=== PATIENT | female | born 1940 | race Caucasian/White ===

== ENCOUNTER 2017-10-17 19:10 | Observation (INO) | payer MEDICARE, OTHER, SELFPAY ==
--- NOTE | 2017-10-17 12:13 | EKG12_ITS ---
Test Reason : Blood Pressure : / mmHG Vent. Rate : 106 BPM Atrial Rate : 106 BPM P-R Int : 160 ms QRS Dur : 072 ms QT Int : 336 ms P-R-T Axes : 045 -04 011 degrees QTc Int : 446 ms Sinus tachycardia Nonspecific ST abnormality Abnormal ECG Confirmed by LUCA IVORY MD ([id number]), marketing editor MCKINLEY MCGOWAN ([id number]) on 10/25/2017 6:19:00 PM Referred By: LILIANA Confirmed By:LUCA IVORY MD
--- NOTE | 2017-10-17 19:35 | RAD_ITS ---
STUDY: X-RAY CHEST REASON FOR EXAM: Female, 76 years old. Acute chest pain TECHNIQUE: Single AP portable view of the chest. COMPARISON: 2013 FINDINGS: EKG leads overlie the chest. Stable elevation of the right hemidiaphragm The lungs are clear and expanded. There is no demonstrated pleural abnormality. Normal size heart. Normal mediastinum and summer. Normal visualized pulmonary arteries. Normal visualized aortic arch and descending thoracic aorta. There are diffuse degenerative changes of the visualized thoracic spine. Normal visualized ribs, clavicles, and shoulders. There is no demonstrated abnormality of the visualized soft tissue structures of the upper abdomen. RAD/Chest 1 View (Portable) IMPRESSION: No acute pulmonary process Electronically Signed: Ludwig Ochoa MD at 14:13 EDT , Service support ,
--- NOTE | 2017-10-17 23:50 | DT_ITS ---
This patient was seen during an EMR downtime October 16, 2017 - October 23, 2017. This patient may have a combination of paper and electronic documentation or all paper documentation. All documentation is viewable within the e-chart portion of [employer] for each patient visit.
--- NOTE | 2017-10-18 12:13 | EKG12_ITS ---
Test Reason : CP ADMIT Blood Pressure : / mmHG Vent. Rate : 084 BPM Atrial Rate : 084 BPM P-R Int : 172 ms QRS Dur : 078 ms QT Int : 376 ms P-R-T Axes : 061 008 029 degrees QTc Int : 444 ms Normal sinus rhythm Normal ECG Confirmed by AMAN GUTIERREZ, MICHAEL ([id number]), technical writer and editor MCKINLEY MCGOWAN ([id number]) on 10/27/2017 1:58:48 PM Referred By: DR SAUCEDO Confirmed By:MICHAEL NEWTON MD
--- NOTE | 2017-10-18 15:06 | STEWCON_ITS ---
Reason For Study: CHEST PAIN Stress Results Protocol: Dobutamine Protocol Maximum Predicted HR: 144 bpm Target HR: 122 bpm% Maximum Predicted HR: 88 % DurationHeart Rate Stage (mm:ss) (bpm) BPDos e Comment BASELINE 82 132/65 2 CC DEFINITY STAGE 1 4:00 10 4 142/7710.002CC DEFINITY STAGE 2 2:10 12 6 155/6520.00 RECOVERY 99 138/69 1CC DEFINITY Stress Duration: 6:10 mm:ss Maximum Stress HR: 126 bpm Baseline Echocardiogram Findings Stress Echo Wall motion Data Resting WMIntermediate WMStress WM Resting Wall Motion Wall Motion Stress No regional wall motion No regional wall motion abnormalities noted. abnormalities noted. Stress Results TERMINATED DUE TO ATTAINED HEART RATE. EKG Data The baseline ECG displays normal sinus rhythm. NORMAL SINUS ST WAVE CHANGES. Interpretation Summary 1) ADEQUATE DOBUTAMINE STRESS ECHO 2) FINAL LVEF=75% 3) DECREASED SENSITIVITY DUE TO POOR ECHO WINDOW REQUIRING DEFINITY AGENT Doppler Measurements & Calculations TR max asia: 192.2 cm/sec TR max P.8 mmHg Ordering Physician: Chloe Townsend Performed By: Marie Wilcox RDCS
[2017-10-19 21:17] LABS: AST(SGOT) 14 U/L (15-37); Alanine Aminotransfer ALT/SGPT 14 U/L (13-56); Albumin, Serum 3.6 g/dL (3.2-5.0); Alkaline Phosphatase 95 U/L (45-117); Bilirubin, Direct 0.07 mg/dL (0.00-0.30); Globulin 3.6 g/dL (2.2-4.2); Lipase 77 U/L (73-393); Protein, Total 7.2 g/dL (6.4-8.2)
[2017-10-20 09:46] LABS: Basophil% 0.6 % (0-1); Eosinophils% 1.9 % (0-5); Hematocrit 38.9 % (37-47); Hemoglobin 13.2 g/dl (12.0-15.0); Mean Corp Hgb Conc 33.9 g/gl (32-36); Mean Corpuscular Hgb 30.8 pg (27.0-32.0); Mean Corpuscular Volume 90.9 fL (81-99); Mean Platelet Vol. 9.1 fl (6.2-12.0); Monocyte% 8.3 % (0-10); Neutrophil # 6.05 X10^3/uL (2.7-7.7); Neutrophil % 68.9 % (47-70); POSITIVE COUNT NO; POSITIVE DIFFERENTIAL NO; POSITIVE MORPHOLOGY NO; Platelet Count 371 K/mm3 (150-450); RBC Distribution Width CV 13.1 % (11.6-14.6); RBC Distribution Width SD 42.3 fl (35.1-43.9); Red Blood Count 4.28 M/mm3 (4.2-5.4); White Blood Count 8.8 K/mm3 (4.4-11.0)
[2017-10-20 09:47] LABS: Absolute Lymphocyte Count 1.76 X10^3/ul (0.83-4.51); Absolute Neutrophil Count 6.1 X10^3/uL (2.0-7.7); Basophil# 0.05 X10^3/uL; Eosinophil# 0.17 X10^3/uL; Lymphocyte # 1.76 X10^3/ul (4.0); Monocyte# 0.73 X10^3/uL
[2017-10-20 09:48] LABS: Partial Thromboplast Time 28.2 Seconds (24.1-36.2); Prothrombin Time (Protime)PT. 13.1 SECONDS (11.7-14.9)
[2017-10-21 07:25] LABS: T4 Total, Thyroxin 8.5 ug/dL (4.8-13.9); Thyroid Stim Hormone (TSH) 3.31 uIU/mL (0.358-3.74)
[2017-10-21 08:31] LABS: Hemoglobin 12.4 g/dl (12.0-15.0); Red Blood Count 3.87 M/mm3 (4.2-5.4); White Blood Count 7.5 K/mm3 (4.4-11.0)
[2017-10-21 08:32] LABS: Absolute Lymphocyte Count 1.85 X10^3/ul (0.83-4.51); Absolute Neutrophil Count 4.9 X10^3/uL (2.0-7.7); Basophil# 0.05 X10^3/uL; Basophil% 0.7 % (0-1); Eosinophil# 0.16 X10^3/uL; Eosinophils% 2.1 % (0-5); Hematocrit 35.2 % (37-47); Lymphocyte # 1.85 X10^3/ul (4.0); Lymphocyte % 24.6 % (19-41); Mean Corp Hgb Conc 35.2 g/gl (32-36); Mean Platelet Vol. 9.1 fl (6.2-12.0); Monocyte# 0.54 X10^3/uL; Monocyte% 7.2 % (0-10); Neutrophil # 4.91 X10^3/uL (2.7-7.7); Neutrophil % 65.1 % (47-70); POSITIVE COUNT NO; POSITIVE DIFFERENTIAL NO; POSITIVE MORPHOLOGY NO; Platelet Count 322 K/mm3 (150-450); RBC Distribution Width CV 13.4 % (11.6-14.6); RBC Distribution Width SD 43.2 fl (35.1-43.9)
[2017-10-21 08:33] LABS: Partial Thromboplast Time 29.5 Seconds (24.1-36.2); Prothrombin Time (Protime)PT. 13.6 SECONDS (11.7-14.9)
[2017-10-21 09:36] LABS: Anion Gap 8 (5-15); BUN 5 mg/dL (7-18); BUN/Creat Ratio 10.9 RATIO (10-20); Chloride 115 mmol/L (98-107); Cholesterol 150 mg/dL (200); Creatinine, Serum 0.46 mg/dL (0.55-1.02); EST Glomerular Filtration Rate 140 mL/min (>60); Est Glom Filt Rate - Afr Amer 170 mL/min (>60); Glucose 100 mg/dL (74-106); High Density Lipoprotein 55 mg/dL; Potassium 4.1 mmol/L (3.5-5.1); Sodium Level 147 mmol/L (136-145); Triglycerides 72 mg/dL; Very Low Density Lipoprotein 14 mg/dL (5-40)
== END 2017-10-18 14:00 | disposition home or self-care (01) ==
LOC: ED 10-18 16:30 → PCU 10-18 16:32
PROVIDERS: Admitting Provider Family Medicine; Family Provider Family Medicine; PCP Family Medicine; Visit Provider Family Medicine
DX: R07.89 Other chest pain (principal); I10 Essential (primary) hypertension; K21.9 Gastro-esophageal reflux disease without esophagitis; R00.0 Tachycardia, unspecified; R06.02 Shortness of breath; Z79.899 Other long term (current) drug therapy
CPT/HCPCS: 36415; 71045; 80048; 80061; 80076; 83690; 83735; 84436; 84443; 84484; 85025; 85379; 85610; 85730; 93005; 93017; 93350; 96360; 96361; 99218; 99285; J7030; Q9957; A4216; C8928; G0378

== ENCOUNTER 2018-12-17 13:58 | Emergency (ER) | payer MEDICARE, OTHER, SELFPAY ==
--- NOTE | 2018-12-17 14:00 | EKG12_ITS ---
Test Reason : PALPITATIONS Blood Pressure : / mmHG Vent. Rate : 098 BPM Atrial Rate : 098 BPM P-R Int : 144 ms QRS Dur : 074 ms QT Int : 354 ms P-R-T Axes : 040 001 032 degrees QTc Int : 451 ms Normal sinus rhythm Normal ECG Confirmed by AMAN GUTIERREZ, MICHAEL ([id number]), supervising film or videotape editor ALBERTO GRIMM ([id number]) on 12/19/2018 10:12:40 AM Referred By: RU Confirmed By:MICHAEL NEWTON MD
[2018-12-17 14:01] VITALS: BP 157/81; PULSE 118; RESP 18; TEMP 36.8; O2SAT 99; BMI 30.6
[2018-12-17 15:05] LABS: Absolute Lymphocyte Count 1.33 X10^3/uL (0.83-4.51); Absolute Neutrophil Count 6.6 X10^3/uL (2.0-7.7); Basophil# 0.08 X10^3/uL; Basophil% 0.9 % (0-1); Eosinophil# 0.05 X10^3/uL; Eosinophils% 0.6 % (0-5); Hematocrit 41.5 % (37-47); Hemoglobin 13.7 g/dL (12.0-15.0); Lymphocyte # 1.33 X10^3/ul (4.0); Lymphocyte % 15.4 % (19-41); Mean Corpuscular Hgb 29.2 pg (27.0-32.0); Mean Corpuscular Volume 88.5 fL (81-99); Mean Platelet Vol. 9.2 fl (6.2-12.0); Monocyte# 0.54 X10^3/uL; Monocyte% 6.3 % (0-10); NRBC Flagged by Analyzer 0 % (0-5); Neutrophil # 6.57 X10^3/uL (2.7-7.7); Neutrophil % 76.3 % (47-70); Platelet Count 337 K/mm3 (150-450); RBC Distribution Width CV 12.9 % (11.6-14.6); RBC Distribution Width SD 41.6 fl (35.1-43.9); Red Blood Count 4.69 M/mm3 (4.2-5.4); White Blood Count 8.6 K/mm3 (4.4-11.0)
[2018-12-17 15:24] LABS: Anion Gap 7 (5-15); BUN 9 mg/dL (7-18); BUN/Creat Ratio 14.2 RATIO (10-20); Calcium,Total 9.1 mg/dL (8.5-10.1); Chloride 108 mmol/L (98-107); Creatinine, Serum 0.64 mg/dL (0.55-1.02); EST Glomerular Filtration Rate 96 mL/min (>60); Est Glom Filt Rate - Afr Amer 116 mL/min (>60); Estimated Creatinine Clearance 36.67 ml/min; Glucose 94 mg/dL (74-106); Potassium 3.8 mmol/L (3.5-5.1); Sodium Level 143 mmol/L (136-145)
[2018-12-17 15:49] VITALS: BP 150/73; PULSE 83; RESP 19; O2SAT 99
--- NOTE | 2018-12-17 15:55 | ED.DCSUM_ITS ---
History of Present Illness Chief Complaint: Palpitations Informant: Patient Onset: Today Narrative: Patient states she woke around 815 this morning. While lying in bed her right leg felt numb. She felt like her heart was racing and she had some mild shortness of breath. She was able to get up and walk and states that short time later the numbness in her leg went away. Throughout the morning her heart rate seemed to improve. Patient did sit in a chair to watch television and states that her right leg went to sleep while she was sitting there. She rubbed her leg and symptoms resolved. She did have some mild low back pain which she states she gets from time to time. Extremity symptoms are now completely resolved. Patient states her heart rate seems to be improved currently but is not back to baseline. She states she had similar symptoms approximately a year ago and was seen and evaluated with no definitive cause. She did wear a Holter monitor at that time. She denies any recent medication changes. No [id number] stimulants. No change in caffeine intake. Past Medical History - Allergies and Home Meds Allergies/Adverse Reactions: Allergies No Known Allergies Allergy (Verified 12/17/18 14:03) Primary Care Physician: Eleanor Crowley MD [Primary Care Provider] - Prior records reviewed: Yes Past Medical History: - - Reviewed Smoking Status: Never smoker Review of Systems General: Denies: Chills, Fever Eyes: Denies: Visual changes - bilaterally ENT: Denies: Bilateral ear pain Cardiovascular: Reports: Palpitations, Heart racing. Denies: Chest pain Respiratory: Reports: Dyspnea. Denies: Cough, Sputum Gastrointestinal: Denies: Abdominal pain, Nausea, Vomiting, Diarrhea Musculoskeletal: Reports: Back pain Skin: Denies: Rash Neurological: Reports: Parasthesia Endocrine: Denies: Polyuria, Polydipsia Hematologic: Denies: Easy bruising Allergy: Denies: Uticaria Physical Exam Vital Signs/Narrative: Vital Signs Temp Pulse Resp BP Pulse Ox 12/17/18 15:49 83 19 H 150/73 H 99 12/17/18 14:01 98.2 F 118 H 18 157/81 H 99 Inital Vital Signs reviewed: Yes General: Well nourished, Well developed Head: Normocephalic Eyes: Perrl, EOMI ENT: Moist mucous membranes Neck: Supple Cardiovascular: Regular rate, Regular rhythm Respiratory: No distress, CTA bilaterally Abdomen: Soft, Nontender Back: Nontender, Normal Inspection Extremities: Nontender, No edema Skin: Normal color, No rash Neurological: Alert, Oriented x3, Normal Strength, Normal Sensation Psychological: Normal affect Diagnostic/Tx/Re-eval Impressions Chest X-Ray 12/17/18 15:55 IMPRESSION: No active disease. Electronically Signed: Ke Lewis MD at 16:12 EDT Tel , Service support , 12/17/18 15:55 Chest 1 View (Portable) [RAD] Stat Laboratory Results 12/17/18 12/17/18 12/17/18 14:55 14:55 14:55 WBC 8.6 RBC 4.69 Hgb 13.7 Hct 41.5 MCV 88.5 MCH 29.2 MCHC 33.0 RDW Std Deviation 41.6 RDW Coeff of Scot 12.9 Plt Count 337 MPV 9.2 Immature Gran % (Auto) 0.500 Neut % (Auto) 76.3 H Lymph % (Auto) 15.4 L [place] % (Auto) 6.3 Eos % (Auto) 0.6 Baso % (Auto) 0.9 Absolute Neuts (auto) 6.6 Absolute Lymphs (auto) 1.33 Nucleated RBC % 0 Sodium 143 Potassium 3.8 Chloride 108 H Carbon Dioxide 28.0 Anion Gap 7 BUN 9 Creatinine 0.64 Estim Creat Clear Calc 36.67 Est GFR (MDRD) Af Amer 116 Est GFR (MDRD) Non-Af 96 BUN/Creatinine Ratio 14.2 Glucose 94 Calcium 9.1 Troponin I < 0.015 TSH 3.43 - EKG Initial EKG Interpretation: Sinus Rhythm - Sinus at 98 with no acute ischemia. Normal intervals. - Medical Decision Making Patient was observed on monitoring and evaluation advisor with no sign of arrhythmia. Patient states that she had similar symptoms a year ago and had a Holter monitor at that time. I will speak with PCP to help arrange close follow-up. She is encouraged to return if she notes the palpitations and racing heart again to try to catch an episode. ED Disposition - Plan for ED Patient: Disposition: Home or Assisted Living Diagnosis: Palpitations Instructions: Palpitations Referrals: Eleanor Crowley MD [Primary Care Provider] - As soon as possible
--- NOTE | 2018-12-17 15:55 | RAD_ITS ---
STUDY: X-RAY CHEST REASON FOR EXAM: Female, 78 years old. Tachycardia, shortness of breath TECHNIQUE: Single AP portable view of the chest. COMPARISON: 10/17/2017 FINDINGS: The lungs are clear and expanded. Elevated right hemidiaphragm which is unchanged. Normal size heart. Normal mediastinum and summer. Normal visualized pulmonary arteries. Normal visualized aortic arch and descending thoracic aorta. Normal visualized thoracic spine. Normal visualized ribs, clavicles, and shoulders. There is no demonstrated abnormality of the visualized soft tissue structures of the upper abdomen. RAD/Chest 1 View (Portable) IMPRESSION: No active disease. Electronically Signed: Ke Lewis MD at 16:12 EDT Tel , Service support ,
[2018-12-17 16:25] VITALS: BP 150/68; PULSE 85; RESP 22; O2SAT 96
[2018-12-17 16:39] LABS: Thyroid Stim Hormone (TSH) 3.43 uIU/mL (0.358-3.74)
[2018-12-17 17:07] VITALS: BP 134/79; PULSE 81; RESP 20; O2SAT 96
[2018-12-17 17:22] VITALS: BP 123/60; PULSE 83; RESP 14; O2SAT 96
== END 2018-12-17 17:28 | disposition home or self-care (01) ==
PROVIDERS: Emergency Provider Emergency Medicine; Family Provider Family Medicine; PCP Family Medicine
DX: R00.2 Palpitations (principal); R20.2 Paresthesia of skin; M54.5 Low back pain; Z79.82 Long term (current) use of aspirin; Z79.899 Other long term (current) drug therapy
CPT/HCPCS: 71045; 80048; 84443; 84484; 85025; 93005; 99283; A4216

== ENCOUNTER → 2019-02-27 10:40 | Outpatient (CLI) | payer MEDICARE, OTHER, SELFPAY ==
--- NOTE | 2019-02-27 17:49 | STRESSREP ---
Stress Test Report Treadmill EKG report: Resting EKG: Normal sinus rhythm, normal axis, normal intervals, no evidence of previous myocardial infarction. Treadmill EKG: The patient exercised according to a Maxwell protocol for 4 minutes and 30 seconds achieving a maximum workload of 6.40 METS. Her resting heart rate was initially 89 beats a minute and rui to maximum 164 beats a minute which represents 115% of the maximal age picked at heart rate. Resting blood pressure is 136/76, and rui to max in 162/84 during exercise the patient's heart rate increased as expected. Patient developed [address] segment depression in the inferior lateral leads at peak exercise which did not reach criteria for ischemia, and which normalized by 3 minutes 1 second into recovery. No arrhythmias noted. Conclusions: Normal, adequate, treadmill EKG. Negative for ischemia by EKG criteria. No anginal symptoms noted. No arrhythmias noted. Appropriate blood pressure response to exercise. Below average exercise capacity for age. Test was terminated due to dyspnea and the attainment of target heart rate. No imaging performed. No complications.
== END ==
PROVIDERS: Family Provider Family Medicine; PCP Family Medicine; Referring Provider Family Medicine; Visit Provider Family Medicine
DX: R07.89 Other chest pain (principal)
CPT/HCPCS: 93017

== ENCOUNTER 2019-12-16 19:59 | Emergency (ER) | payer MEDICARE, OTHER, SELFPAY ==
[2019-12-16 20:00] VITALS: BP 132/96; PULSE 119; RESP 16; TEMP 36.3; O2SAT 97; BMI 30.7
--- NOTE | 2019-12-16 20:42 | CT_ITS ---
STUDY: CTA CHEST REASON FOR EXAM: Female, 79 years old. SOB, CHEST DISCOMFORT, TINGLING IN LEGS SINCE MONDAY MORNING. RADIATION DOSAGE (If Supplied By Facility): CTDIvol = ( 9.515 ) mGy, DLP = ( 487.80 ) mGycm TECHNIQUE: The examination was performed with the intravenous administration of IV 100mL Isovue-370. Post-processing of the angiographic images was performed, with multiplanar reformation and 3D reconstruction. Individualized dose optimization techniques were used for this CT. COMPARISON: None. FINDINGS: Normal enhancement of the main pulmonary artery and right and left pulmonary arteries. Normal enhancement of the bilateral peripheral pulmonary arteries. There is no demonstrated pulmonary embolism. Normal thoracic aorta and visualized great vessels. There is no demonstrated aortic dissection. Normal heart and pericardium. Normal mediastinum. Normal hilar regions. Normal visualized trachea and bronchi. The lungs are well expanded. No demonstrated consolidation or pulmonary edema. No pleural effusion. Mild interstitial thickening is present in the superior segment of the right lower lobe. No visualized lung nodules. Mild interstitial scarring is also present in the right middle lobe and in the left lower lobe. No emphysematous cysts. Chronic elevation of the right hemidiaphragm with eventration of the liver into the thoracic cavity. Normal pleura. Normal chest wall structures. There are degenerative changes of thoracic spine. Normal visualized upper abdomen. A small benign cyst is present in the dome of the left lobe of the liver unchanged from the November 13 2013 study. Several small cysts are reidentified in the right lobe of the liver also unchanged from the 2013 study. A small hypodense nodule is present in the right lobe of the thyroid gland assessed on this study but can be evaluated with thyroid ultrasound if clinically indicated. CT/CTA Chest W/WO Contrast IMPRESSION: 1. No demonstrated pulmonary embolism or arterial dissection. 2. Mild interstitial thickening in both lungs. 3. No visualized consolidation or pleural effusion. Electronically Signed: Francesco Arzate MD at 22:52 EDT , Service support ,
--- NOTE | 2019-12-16 20:42 | EKG12_ITS ---
Test Reason : CP Blood Pressure : / mmHG Vent. Rate : 113 BPM Atrial Rate : 113 BPM P-R Int : 138 ms QRS Dur : 070 ms QT Int : 322 ms P-R-T Axes : 046 -08 034 degrees QTc Int : 441 ms Sinus tachycardia Nonspecific ST and T wave abnormality Abnormal ECG Confirmed by AMAN GUTIERREZ, MICHAEL ([id number]), story editor CATY TRACEY ([id number]) on 12/18/2019 10:58:51 AM Referred By: MARIAMA/KELI Confirmed By:MICHAEL NEWTON MD
[2019-12-16] MEDS: 0.9% Normal Saline 1,000 ML 150 ML IV (21:00)
[2019-12-16] MEDS: LORazepam 1 MG Tablet PO (21:01)
[2019-12-16 21:02] VITALS: O2SAT 96
[2019-12-16 21:03] VITALS: O2SAT 96
[2019-12-16 21:13] LABS: Absolute Lymphocyte Count 2.21 X10^3/uL (0.83-4.51); Absolute Neutrophil Count 6.1 X10^3/uL (2.0-7.7); Basophil# 0.07 X10^3/uL; Basophil% 0.8 % (0-1); Eosinophil# 0.12 X10^3/uL; Eosinophils% 1.3 % (0-5); Hemoglobin 13.8 g/dL (12.0-15.0); Lymphocyte # 2.21 X10^3/ul (4.0); Mean Corp Hgb Conc 36.3 g/dL (32-36); Mean Corpuscular Hgb 32.9 pg (27.0-32.0); Mean Corpuscular Volume 90.7 fL (81-99); Mean Platelet Vol. 9.3 fl (6.2-12.0); Monocyte# 0.68 X10^3/uL; Monocyte% 7.4 % (0-10); NRBC Flagged by Analyzer 0 % (0-5); Neutrophil % 66.2 % (47-70); Platelet Count 354 K/mm3 (150-450); RBC Distribution Width CV 12.7 % (11.6-14.6); RBC Distribution Width SD 40.6 fl (35.1-43.9); Red Blood Count 4.19 M/mm3 (4.2-5.4); White Blood Count 9.2 K/mm3 (4.4-11.0)
[2019-12-16 21:45] LABS: Lipase 49 U/L (73-393)
[2019-12-16 21:47] LABS: AST(SGOT) 13 U/L (15-37); Alanine Aminotransfer ALT/SGPT 20 U/L (13-56); Albumin, Serum 3.6 g/dL (3.2-5.0); Alkaline Phosphatase 88 U/L (45-117); Bilirubin, Direct 0.13 mg/dL (0.00-0.30); Globulin 3.7 g/dL (2.2-4.2); Protein, Total 7.3 g/dL (6.4-8.2)
[2019-12-16 21:53] LABS: Anion Gap 6 (5-15); BUN 11 mg/dL (7-18); BUN/Creat Ratio 15.9 RATIO (10-20); Calcium,Total 9.1 mg/dL (8.5-10.1); Chloride 108 mmol/L (98-107); Creatinine, Serum 0.69 mg/dL (0.55-1.02); EST Glomerular Filtration Rate 87 mL/min (>60); Est Glom Filt Rate - Afr Amer 105 mL/min (>60); Estimated Creatinine Clearance 36.08 ml/min; Glucose 117 mg/dL (74-106); Sodium Level 141 mmol/L (136-145); Thyroid Stim Hormone (TSH) 8.93 uIU/mL (0.358-3.74)
[2019-12-16 22:00] VITALS: BP 149/79; PULSE 118; RESP 22; O2SAT 97
--- NOTE | 2019-12-16 22:59 | ED.VISSUMM ---
- ER Visit Summary Date of Service: 12/16/19 Chief Complaint: Chest pain History of Present Illness: The patient is a [address] Crowley. She reports that she has chest pain that began 3 days ago. States that intermittent pain that lasts 15 to 20 minutes over the past 3 days, but is been present for the past 4 hours now. She describes it as a heaviness/pressure. Is 7 on 10 at worst and 5-10 currently. Is worsened by nothing including exertion. States that she is been mildly short of breath with this. She denies any associated nausea, vomiting, or diaphoresis. Patient reports that when she gets this my legs shake. Physical Examination: Vitals: Stable. Afebrile. General: Well-nourished and well-developed. Head: Normocephalic atraumatic. Neck: Supple, no lymphadenopathy. No JVD. Nontender. Cardiovascular: Regular rate and rhythm. No murmurs. Respiratory: No respiratory distress. Clear to auscultation bilaterally. Abdominal: Soft, nontender, nondistended, normal bowel sounds. No guarding, rebound, or peritoneal signs. Back: Nontender. Extremities: Nontender, no edema. Skin: Normal color, no rash. Neurologic: Alert and oriented ?3. Cranial nerves II through XII are intact. Normal strength and sensation. Psych: Normal affect. Test Results: EKG sinus tach at [address] changes. Is unchanged from 1 year ago. Troponin is negative despite more than 4 hours of constant pain. LFTs show an AST of 13 lipase is 49. Chem-7 shows a chloride of 108 and glucose 117. CBC is normal. TSH is 8.93. Free T3 and T4 were sent. Clinical Impression(s) from Imaging Studies Chest CTA 12/16/19 20:42 IMPRESSION: 1. No demonstrated pulmonary embolism or arterial dissection. 2. Mild interstitial thickening in both lungs. 3. No visualized consolidation or pleural effusion. Electronically Signed: Francesco Arzate MD at 22:52 EDT , Service support , Emergency Department Course and Treatment: Patient does readily admit to the fact that she feels anxious and has problems with anxiety. States that she does not get sick often and when there is something that does not feel right she gets anxious with this. She was given a dose of Ativan p.o. and is resting much more comfortably. She would like to go home. Chart review shows patient had a stress test in February 2019 that was negative. On believe that there is any indication for a heart catheterization. I think that she is a suitable candidate for further outpatient evaluation. Treatment Plan: Patient be discharged prescription for 10 Ativan. Instructed to follow-up Dr. Crowley soon as possible. Return to the emergency department for any worsening symptoms. Disposition: To home in improved and stable condition. Impression: 1. Atypical chest pain. 2. DAYLIN score of 2. This note was generated with [employer] dictation software. It may contain incorrect words, spelling, and punctuation that were not noted in review of the chart prior to signing ED Disposition - Plan for ED Patient: Disposition: Home or Assisted Living Instructions: ED Chest Pain Atypical Unkn Cause Prescriptions: Lorazepam [Ativan] 1 mg PO TID #10 tab Prescription Printed Referrals: Eleanor Crowley MD [Primary Care Provider] - As soon as possible
[2019-12-16 23:22] VITALS: BP 147/89; PULSE 92; RESP 15; O2SAT 97
[2019-12-17 00:08] LABS: T4 Free Direct 1.07 ng/dL (0.76-1.46)
== END 2019-12-16 23:27 | disposition home or self-care (01) ==
PROVIDERS: Emergency Provider Emergency Medicine; PCP Family Medicine
DX: R07.89 Other chest pain (principal); R06.02 Shortness of breath; R25.1 Tremor, unspecified; K21.9 Gastro-esophageal reflux disease without esophagitis; R32 Unspecified urinary incontinence; Z79.82 Long term (current) use of aspirin; Z79.899 Other long term (current) drug therapy
CPT/HCPCS: 71275; 80048; 80076; 83690; 84439; 84443; 84481; 84484; 85025; 93005; 96360; 96361; 99284; J7030; Q9967; A4216

== ENCOUNTER → 2020-01-10 12:04 | Outpatient (CLI) | payer MEDICARE, OTHER, SELFPAY ==
[2019-12-16 20:00] VITALS: BMI 30.7
--- NOTE | 2020-01-10 12:07 | US_ITS ---
STUDY: THYROID ULTRASOUND REASON FOR EXAM: Female, 79 years old. NODULE SEEN ON RECENT CT TECHNIQUE: Ultrasound evaluation of the thyroid was performed with real-time and static hernandez-scale imaging. COMPARISON: None. FINDINGS: RIGHT LOBE: The right lobe of the thyroid gland measures 4.4 cm x 1.5 cm x 1.3 cm. There is a heterogeneous echotexture. There are 4 subcentimeter hypoechoic solid nodules scattered throughout the upper, mid and lower poles of the right lobe of the thyroid gland. The largest nodule measures 8 mm x 5 mm x 5 mm LEFT LOBE: The left lobe of the thyroid gland measures 3.5 cm x 1.3 cm x 1.1 cm. There is a heterogeneous echotexture. There is an 8mm by 8mm by 6 mm well-defined hypoechoic solid nodule in the midportion of the left lobe of the thyroid. ISTHMUS: The isthmus measures 2.0 mm. The regional lymph nodes are normal. US/Thyroid IMPRESSION: Heterogeneous appearance of both lobes of the thyroid gland with the subcentimeter solid nodules bilaterally. Electronically Signed: Germain Vicente, at 15:34 EDT , Service support ,
== END ==
PROVIDERS: PCP Family Medicine; Referring Provider Family Medicine; Visit Provider Family Medicine
DX: E04.1 Nontoxic single thyroid nodule (principal)
CPT/HCPCS: 76536

== ENCOUNTER 2020-01-14 19:27 | Emergency (ER) | payer MEDICARE, OTHER, SELFPAY ==
[2020-01-14 19:28] VITALS: BP 123/101; PULSE 103; RESP 25; TEMP 37.2; O2SAT 95; BMI 34.1
--- NOTE | 2020-01-14 19:30 | ED.RN ---
CALLED FOR EKG PER RN REQUEST, PULLED OLD EKGS FOR
--- NOTE | 2020-01-14 19:52 | CT_ITS ---
STUDY: CTA CHEST REASON FOR EXAM: Female, 79 years old. MIDSTERNAL CP and SOB. RADIATION DOSAGE (If Supplied By Facility): CTDIvol = ( 11.50 ) mGy, DLP = ( 414.66 ) mGycm TECHNIQUE: The examination was performed with the intravenous administration of IV 75mL Isovue-370. Post-processing of the angiographic images was performed, with multiplanar reformation and 3D reconstruction. Individualized dose optimization techniques were used for this CT. COMPARISON: December 16, 2019. FINDINGS: Normal enhancement of the main pulmonary artery and right and left pulmonary arteries. Normal enhancement of the bilateral peripheral pulmonary arteries. There is no demonstrated pulmonary embolism. Normal thoracic aorta and visualized great vessels. There is no demonstrated aortic dissection. Normal heart and pericardium. Normal mediastinum. Normal hilar regions. Normal visualized trachea and bronchi. The lungs are well expanded. There is stable mild interstitial increased opacities of the lungs. There is stable elevation of the right hemidiaphragm. Normal pleura. Normal chest wall structures. There are degenerative changes of thoracic spine. Normal visualized upper abdomen. CT/CTA Chest W/WO Contrast IMPRESSION: CTA chest examination, without a demonstrated pulmonary embolism or arterial dissection. Stable interstitial edema or infiltrates. Electronically Signed: Lloyd Rapp MD at 21:08 EDT , Service support ,
--- NOTE | 2020-01-14 19:52 | EKG12_ITS ---
Test Reason : CP Blood Pressure : / mmHG Vent. Rate : 103 BPM Atrial Rate : 103 BPM P-R Int : 120 ms QRS Dur : 072 ms QT Int : 324 ms P-R-T Axes : 047 -10 048 degrees QTc Int : 424 ms Sinus tachycardia Nonspecific ST abnormality Abnormal ECG Confirmed by DIANELYS GUTIERREZ, LUCA ([id number]), supervising editor news reel ALBERTO GRIMM ([id number]) on 01/16/2020 10:56:53 AM Referred By: PRISCILLA Confirmed By:LUCA IVORY MD
[2020-01-14 19:55] VITALS: O2SAT 96
--- NOTE | 2020-01-14 19:56 | ED.VIS.GEN ---
History of Present Illness Chief Complaint: Chest Pain Narrative: Patient is a 79-year-old female who presents with chest pain. This is actually been going on for a couple of months. She states her current episode has been constant at least for a few days. She describes as a heaviness. Her pain is in the center of her chest collarbones to her epigastrium. It radiates through to the back. She currently rates it as severe. She denies diaphoresis nausea vomiting. No shortness of breath. She denies history of coronary artery disease. No recent travel or surgery no history of DVT or pulmonary embolism no leg pain or swelling. Past Medical History - Allergies and Home Meds Allergies/Adverse Reactions: Allergies alendronate sodium [From Fosamax] Allergy (Verified 01/14/20 19:33) Nausea Primary Care Physician: Eleanor Crowley MD [Primary Care Provider] - Past Medical History: - - GERD Smoking Status: Never smoker Review of Systems All systems negative except as indicated General: Denies: Fever Eyes: Denies: Visual changes - bilaterally ENT: Denies: Bilateral ear pain Cardiovascular: Reports: Chest pain Respiratory: Denies: Dyspnea Gastrointestinal: Denies: Abdominal pain, Nausea, Vomiting, Diarrhea Musculoskeletal: Reports: Back pain. Denies: Myalgias, Arthralgias Skin: Denies: Rash Neurological: Denies: Headache Hematologic: Denies: Easy bruising Allergy: Denies: Uticaria Physical Exam Vital Signs/Narrative: Vital Signs Temp Pulse Resp BP Pulse Ox 01/14/20 19:28 98.9 F 103 H 25 H 123/101 H 95 Inital Vital Signs reviewed: Yes General: Well nourished Head: Normocephalic Eyes: EOMI ENT: Moist mucous membranes Neck: Supple Cardiovascular: Regular rhythm, Tachycardia, - - Easily palpable 2+ symmetric radial pulses Respiratory: No distress, CTA bilaterally Abdomen: Soft, Nontender, Nondistended Extremities: Nontender, No edema. Negative for: Tenderness Skin: Normal color Neurological: Alert Psychological: Normal affect Diagnostic/Tx/Re-eval Impressions Chest CTA 01/14/20 19:52 IMPRESSION: CTA chest examination, without a demonstrated pulmonary embolism or arterial dissection. Stable interstitial edema or infiltrates. Electronically Signed: Lloyd Rapp MD at 21:08 EDT , Service support , 01/14/20 19:52 CTA Chest W/WO Contrast [CT] Stat Laboratory Results 01/14/20 01/14/20 01/14/20 19:30 19:30 19:30 WBC 10.2 RBC 4.86 Hgb 14.3 Hct 43.9 MCV 90.3 MCH 29.4 MCHC 32.6 RDW Std Deviation 41.2 RDW Coeff of Scot 12.8 Plt Count 406 MPV 10.1 Immature Gran % (Auto) 0.400 Neut % (Auto) 66.7 Lymph % (Auto) 23.7 [place] % (Auto) 6.6 Eos % (Auto) 1.7 Baso % (Auto) 0.9 Absolute Neuts (auto) 6.8 Absolute Lymphs (auto) 2.43 Nucleated RBC % 0 PT 12.8 INR 1.0 Sodium 141 Potassium 3.6 Chloride 106 Carbon Dioxide 29.0 Anion Gap 6 BUN 11 Creatinine 0.72 Estim Creat Clear Calc 36.08 Est GFR (MDRD) Af Amer 101 Est GFR (MDRD) Non-Af 83 BUN/Creatinine Ratio 15.3 Glucose 116 H Calcium 9.4 Troponin I < 0.015 - Medical Decision Making EKG shows sinus tachycardia with nonspecific ST abnormalities at a rate of 103. This is unchanged from prior. Laboratory studies and CTA as above unremarkable. Heart score is 3. DAYLIN risk score is 1. This is unlikely to be due to cardiac ischemia given constant pain for 3 days with an unchanged EKG and negative troponin. However it is also a second visit for similar symptoms within a couple months. I discussed that we could place the patient in observation versus close outpatient follow-up with a low threshold to return. The patient would prefer to go home and follow-up with her primary care physician. They do understand return for new or worsening symptoms and were advised on signs and symptoms to monitor for and the patient was discharged. ED Disposition - Plan for ED Patient: Disposition: Home or Assisted Living Diagnosis: Chest pain Instructions: ED Chest Pain Atypical Unkn Cause Referrals: Eleanor Crowley MD [Primary Care Provider] -
[2020-01-14 20:00] VITALS: BP 136/69; PULSE 98; RESP 20; O2SAT 96
[2020-01-14] MEDS: Morphine 4 MG/ML Syringe IV (20:02)
[2020-01-14] MEDS: Ondansetron 4 MG/2 ML Vial IV (20:02)
[2020-01-14 20:33] LABS: Anion Gap 6 (5-15); BUN 11 mg/dL (7-18); BUN/Creat Ratio 15.3 RATIO (10-20); Calcium,Total 9.4 mg/dL (8.5-10.1); Chloride 106 mmol/L (98-107); Creatinine, Serum 0.72 mg/dL (0.55-1.02); EST Glomerular Filtration Rate 83 mL/min (>60); Est Glom Filt Rate - Afr Amer 101 mL/min (>60); Estimated Creatinine Clearance 36.08 ml/min; Glucose 116 mg/dL (74-106); Potassium 3.6 mmol/L (3.5-5.1); Sodium Level 141 mmol/L (136-145)
[2020-01-14 21:02] LABS: Absolute Lymphocyte Count 2.43 X10^3/uL (0.83-4.51); Absolute Neutrophil Count 6.8 X10^3/uL (2.0-7.7); Basophil# 0.09 X10^3/uL; Basophil% 0.9 % (0-1); Eosinophil# 0.17 X10^3/uL; Eosinophils% 1.7 % (0-5); Lymphocyte # 2.43 X10^3/ul (4.0); Lymphocyte % 23.7 % (19-41); Mean Platelet Vol. 10.1 fl (6.2-12.0); Monocyte# 0.68 X10^3/uL; Monocyte% 6.6 % (0-10); NRBC Flagged by Analyzer 0 % (0-5); Neutrophil # 6.83 X10^3/uL (2.7-7.7); Neutrophil % 66.7 % (47-70); Platelet Count 406 K/mm3 (150-450); RBC Distribution Width CV 12.8 % (11.6-14.6); RBC Distribution Width SD 41.2 fl (35.1-43.9); White Blood Count 10.2 K/mm3 (4.4-11.0)
[2020-01-14 21:14] LABS: Prothrombin Time (Protime)PT. 12.8 SECONDS (11.7-14.9)
[2020-01-14 21:22] VITALS: BP 129/77; PULSE 90; RESP 20; O2SAT 94
[2020-01-14 21:58] LABS: Hematocrit 43.9 % (37-47); Hemoglobin 14.3 g/dL (12.0-15.0); Mean Corp Hgb Conc 32.6 g/dL (32-36); Mean Corpuscular Hgb 29.4 pg (27.0-32.0); Mean Corpuscular Volume 90.3 fL (81-99); Red Blood Count 4.86 M/mm3 (4.2-5.4)
[2020-01-14 22:00] LABS: POSITIVE COUNT NO
--- NOTE | 2020-01-14 22:05 | ED.RN ---
CALLED LAB AT 2114, HEMATOLOGY WAS TURBID AND TECH WAS RUNNING BY HAND. COAGS WERE JUST RELEASED.
[2020-01-14 22:19] VITALS: BP 126/65; PULSE 91; RESP 19; O2SAT 97
== END 2020-01-14 22:20 | disposition home or self-care (01) ==
PROVIDERS: Emergency Provider Emergency Medicine; PCP Family Medicine
DX: R07.9 Chest pain, unspecified (principal); K21.9 Gastro-esophageal reflux disease without esophagitis; Z79.82 Long term (current) use of aspirin
CPT/HCPCS: 71275; 80048; 84484; 85025; 85610; 93005; 96374; 96375; 99284; Q9967; A4216; J2405

== ENCOUNTER → 2020-03-04 08:45 | Outpatient (CLI) | payer MEDICARE, OTHER, SELFPAY ==
--- NOTE | 2020-03-04 08:49 | NM_ITS ---
CLINICAL: 79-year-old female with reported history of thyroid nodularity. I-123 THYROID UPTAKE and SCAN COMPARISON: Thyroid ultrasound report 01/10/2020 FINDINGS: The patient was administered a 310 uCi I-123 capsule by mouth. The 4-hour I-123 radioactive iodine thyroidal uptake was calculated to be 10.0 % (normal 5 to 25 %). The 24-hour I-123 radioactive iodine thyroidal uptake was calculated to be 34.4 % (normal 5 to 40 %). The I-123 thyroid scan demonstrates homogeneous radiopharmaceutical concentration throughout both lobes of a U-shaped thyroid gland. There are no colloidal parenchymal hypofunctioning cold nodules noted in either lobe of the thyroid gland. NM/Thyroid Uptake Single or Mult IMPRESSION: 1. NORMAL 4- and 24-hour I-123 radioactive iodine thyroidal uptakes. 2. 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 (Rubén et al, J Nucl Med 32: 1455, 1991). 3. No hypofunctioning-cold nodules are identified. Electronically Signed: Ke Muhammad DO at 22:19 EDT Tel , Service support ,
== END ==
PROVIDERS: PCP Family Medicine; Referring Provider Family Medicine; Visit Provider Family Medicine
DX: E04.1 Nontoxic single thyroid nodule (principal)
CPT/HCPCS: 78012; A9516

== ENCOUNTER → 2020-03-09 15:09 | Outpatient (CLI) | payer MEDICARE, OTHER, SELFPAY ==
[2020-03-09 18:46] LABS: T4 Total, Thyroxin 9.9 ug/dL (4.8-13.9); Thyroid Stim Hormone (TSH) 4.14 uIU/mL (0.358-3.74)
== END ==
PROVIDERS: PCP Family Medicine; Visit Provider Family Medicine
DX: E03.9 Hypothyroidism, unspecified (principal)
CPT/HCPCS: 36415; 84436; 84443

== ENCOUNTER 2021-01-19 17:12 | Emergency (ER) | payer MEDICARE, OTHER, SELFPAY ==
[2021-01-19 17:13] VITALS: BP 154/84; PULSE 117; RESP 20; TEMP 36.6; O2SAT 96; BMI 29.8
[2021-01-19 17:43] VITALS: BP 142/71; PULSE 102; RESP 18; O2SAT 98
--- NOTE | 2021-01-19 18:01 | RAD_ITS ---
STUDY: X-RAY CHEST REASON FOR EXAM: Female, 80 years old. chest pain TECHNIQUE: AP portable COMPARISON: 12/17/2018 FINDINGS: Right hemidiaphragm is elevated there is mild prominence of markings in the right lower lobe.. There is no demonstrated pleural abnormality. Normal size heart. Normal mediastinum and summer. Normal visualized pulmonary arteries. Normal visualized aortic arch and descending thoracic aorta. Dorsal spine and shoulders demonstrate mild degenerative change Normal visualized ribs, and clavicles. There is no demonstrated abnormality of the visualized soft tissue structures of the upper abdomen. No significant change since prior exam RAD/Chest 1 View (Portable) IMPRESSION: No acute cardiopulmonary pathology. Electronically Signed: Jasen Call MD at 18:35 EDT , Service support ,
--- NOTE | 2021-01-19 18:01 | EKG12_ITS ---
Test Reason : CP Blood Pressure : / mmHG Vent. Rate : 106 BPM Atrial Rate : 106 BPM P-R Int : 150 ms QRS Dur : 072 ms QT Int : 332 ms P-R-T Axes : 046 -07 028 degrees QTc Int : 441 ms Sinus tachycardia Nonspecific ST abnormality Abnormal ECG Confirmed by AMAN GUTIERREZ, MICHAEL ([id number]), art editor ALBERTO GRIMM ([id number]) on 01/21/2021 9:13:42 AM Referred By: BROOKE/BRENNEN Confirmed By:MICHAEL NEWTON MD
--- NOTE | 2021-01-19 18:01 | ED.VIS.CHEST ---
HPI History of Present Illness Chief Complaint: Chest Pain Informant: patient Onset/Context/Timing Onset: - (Intermittent but worse today) Narrative Narrative: Patient presents secondary to complaint of chest pain. She states earlier today she developed chest pain, shortness of breath, and dizziness. Symptoms of been going on for the past couple days but have been intermittent. Today's episode seemed to be worse. She still complains of some pain but states overall she feels less anxiety and more relaxed. Patient denies any significant past medical history. She does take medication for anxiety and reflux. Last stress test was in 2019 and normal at that time. [facility] Medical History Anxiety GERD (gastroesophageal reflux disease) Home Medications Aspirin, Baby 81 mg PO DAILY 09/05/14 [History Last Taken 09/05/14] esomeprazole magnesium [Nexium] 40 mg PO DAILY 09/05/14 [History Last Taken 09/05/14] multivitamin 1 tab PO DAILY 01/19/21 [History Last Taken Unknown] Allergy/AdvReac Type Severity Reaction Status Date / Time No Known Allergies Allergy Verified 01/19/21 17:15 Social History Smoking Status: Never smoker ROS ROS ED Constitutional Constitutional ED: Denies chills or fever(s) Eyes Eyes: Denies change in vision ENT ENT ED: Denies sore throat Cardiovascular Cardiovascular: Reports chest pain Respiratory/Chest Respiratory/Chest: Reports dyspnea; Denies cough Gastrointestinal Gastrointestinal: Denies abdominal pain, diarrhea, nausea or vomiting Genitourinary Genitourinary ED: Denies dysuria Musculoskeletal Musculoskeletal: Denies back pain or neck pain Integumentary Denies rash Neurologic Neurologic: Denies headache(s) or weakness Psychiatric Psychiatric: Denies anxiety or depression Allergic/Immunologic Allergic/Immunologic ED: Denies urticaria EXAM Physical Exam Const Vital Signs: 01/19/21 17:13 01/19/21 17:43 01/19/21 18:14 Temperature 97.9 F Temperature Source Temporal Pulse Rate 117 H 102 H 93 Respiratory Rate 20 H 18 20 H Blood Pressure 154/84 H 142/71 H 154/65 H Blood Pressure Mean 107 94 94 Pulse Ox 96 98 Oxygen Delivery Method Room Air Room Air Room Air Positive well nourished and well developed General Appearance ED: well developed HEENT Reports normocephalic and head/scalp atraumatic Eyes PERRL and EOMs intact bilaterally Neck supple Chest Wall inspection of chest normal and palpation of chest normal Resp normal respiratory effort and clear to auscultation bilaterally Cardio regular rate and regular rhythm Rate: other Other Details: Equal pulses throughout. GI normal to inspection, nondistended, normoactive bowel sounds Palpation: soft Back/Spine no CVA tenderness Extremity normal to inspection Neuro oriented x3 and no sensory deficits noted Sensorium / Orientation: alert Motor Exam: strength 5/5 throughout Psych mental status grossly normal Skin no rashes or lesions noted Heart Score History: Moderately Suspicious ECG: Normal Age: >/= 65 years Risk Factors: No Risk Factors Troponin: </= Normal Limit Score: 3 MDM MDM MDM Narrative Medical decision making narrative: Patient was given aspirin. Chest x-ray, labs, EKG obtained. Lab Data Attestation: I reviewed the patient's lab results. Labs: Laboratory Results - last 24 hr 01/19/21 01/19/21 01/19/21 17:28 17:28 18:20 WBC 9.3 RBC 4.93 Hgb 14.2 Hct 43.1 MCV 87.4 MCH 28.8 MCHC 32.9 RDW Std Deviation 42.3 RDW Coeff of Scot 13.2 Plt Count 422 MPV 9.7 Immature Gran % (Auto) 0.400 Neut % (Auto) 70.8 H Lymph % (Auto) 20.0 [place] % (Auto) 6.5 Eos % (Auto) 1.5 Baso % (Auto) 0.8 Absolute Neuts (auto) 6.6 Absolute Lymphs (auto) 1.87 Nucleated RBC % 0 D-Dimer Quant (PE/DVT) 0.45 Sodium 143 Potassium 3.7 Chloride 111 H Carbon Dioxide 27.0 Anion Gap 5 BUN 11 Creatinine 0.81 Estim Creat Clear Calc 43.81 Est GFR (MDRD) Af Amer 88 Est GFR (MDRD) Non-Af 73 BUN/Creatinine Ratio 13.6 Glucose 128 H Calcium 9.2 Troponin I High Sens 6 Radiography Chest X-Ray - ED: 1 View, Read by ED Physician, Normal, Heart, Lungs and Mediastinum Diagnostic Testing: Radiology Impression Chest X-Ray 01/19/21 18:01 IMPRESSION: No acute cardiopulmonary pathology. Electronically Signed: Jasen Call MD at 18:35 EDT , Service support , EKG Initial EKG: Attestation: I personally reviewed and interpreted this EKG as follows: Interpretation: Sinus Tachycardia (Sinus tach at 106. No acute ST change.) Treatment and Re-Evaluation Comments:: Lab work is reviewed and unremarkable. Troponin and D-dimer are both normal. Chest x-ray per my interpretation is normal. On repeat examination patient resting comfortably. She denies complaints at this time. She feels that her symptoms may be secondary to anxiety. She will follow-up with her primary care physician and was given return instructions. Discharge Plan Triage Chief Complaint: Chest Pain ED Provider: Michelle Luo Dx/Rx/DC Orders Clinical Impression: Chest pain Instructions: ED Chest Pain, Uncertain Cause Prescriptions: No Action esomeprazole magnesium [Nexium] 40 MG capsule 40 mg PO DAILY RF: 0 Aspirin, Baby 81 mg PO DAILY RF: 0 multivitamin Tablet 1 tab PO DAILY RF: 0 Primary Care Provider: Eleanor Crowley Referrals: Eleanor Crowley MD [Primary Care Provider] - As soon as possible Disposition Disposition: Home, Self Care
[2021-01-19] MEDS: Aspirin 81 MG TAB.CHEW 324 MG PO (18:13)
[2021-01-19 18:14] VITALS: BP 154/65; PULSE 93; RESP 20
[2021-01-19 18:29] LABS: BUN 11 mg/dL (7-18); Creatinine, Serum 0.81 mg/dL (0.55-1.02); EST Glomerular Filtration Rate 73 mL/min (>60); Estimated Creatinine Clearance 43.81 ml/min; Glucose 128 mg/dL (74-106)
[2021-01-19 18:30] LABS: Anion Gap 5 (5-15); BUN/Creat Ratio 13.6 RATIO (10-20); Calcium,Total 9.2 mg/dL (8.5-10.1); Chloride 111 mmol/L (98-107); Est Glom Filt Rate - Afr Amer 88 mL/min (>60); Potassium 3.7 mmol/L (3.5-5.1); Sodium Level 143 mmol/L (136-145); Troponin-I HS 6 pg/mL (3.0-54.0)
[2021-01-19 19:00] LABS: Absolute Lymphocyte Count 1.87 X10^3/uL (0.83-4.51); Absolute Neutrophil Count 6.6 X10^3/uL (2.0-7.7); Basophil# 0.07 X10^3/uL; Basophil% 0.8 % (0-1); Eosinophil# 0.14 X10^3/uL; Eosinophils% 1.5 % (0-5); Hematocrit 43.1 % (37-47); Hemoglobin 14.2 g/dL (12.0-15.0); Lymphocyte # 1.87 X10^3/ul (0.83-4.51); Mean Corp Hgb Conc 32.9 g/dL (32-36); Mean Corpuscular Hgb 28.8 pg (27.0-32.0); Mean Corpuscular Volume 87.4 fL (81-99); Mean Platelet Vol. 9.7 fl (6.2-12.0); Monocyte# 0.61 X10^3/uL; Monocyte% 6.5 % (0-10); NRBC Flagged by Analyzer 0 % (0-5); Neutrophil % 70.8 % (47-70); Platelet Count 422 K/mm3 (150-450); RBC Distribution Width CV 13.2 % (11.6-14.6); RBC Distribution Width SD 42.3 fl (35.1-43.9); Red Blood Count 4.93 M/mm3 (4.2-5.4); White Blood Count 9.3 K/mm3 (4.4-11.0)
[2021-01-19 19:03] LABS: D-Dimer Quantitative (DVT/PE) 0.45 FEU/ug/m (0.27-0.49)
[2021-01-19 19:35] VITALS: BP 144/68; PULSE 85; RESP 22
[2021-01-19 19:36] VITALS: BP 144/68; PULSE 87; RESP 16
== END 2021-01-19 19:36 | disposition home or self-care (01) ==
PROVIDERS: Emergency Provider Emergency Medicine; PCP Family Medicine
DX: R07.9 Chest pain, unspecified (principal); R06.02 Shortness of breath; R42 Dizziness and giddiness; K21.9 Gastro-esophageal reflux disease without esophagitis; Z79.82 Long term (current) use of aspirin; Z79.899 Other long term (current) drug therapy
CPT/HCPCS: 71045; 80048; 84484; 85025; 85379; 93005; 99285; A4216

== ENCOUNTER → 2021-01-27 10:47 | Outpatient (CLI) | payer MEDICARE, OTHER, SELFPAY ==
[2021-01-27 12:38] LABS: T4 Total, Thyroxin 10.1 ug/dL (4.8-13.9); Thyroid Stim Hormone (TSH) 3.28 uIU/mL (0.358-3.74)
== END ==
PROVIDERS: PCP Family Medicine; Referring Provider Family Medicine; Visit Provider Family Medicine
DX: E03.9 Hypothyroidism, unspecified (principal)
CPT/HCPCS: 36415; 84436; 84443

== ENCOUNTER → 2021-04-16 11:56 | Outpatient (CLI) | payer MEDICARE, OTHER, SELFPAY ==
[2021-04-16 15:33] LABS: T4 Total, Thyroxin 11.9 ug/dL (4.8-13.9); Thyroid Stim Hormone (TSH) 2.13 uIU/mL (0.358-3.74)
== END ==
PROVIDERS: PCP Family Medicine; Referring Provider Family Medicine; Visit Provider Family Medicine
DX: Z00.00 Encounter for general adult medical examination without abnormal findings (principal); E03.9 Hypothyroidism, unspecified
CPT/HCPCS: 36415; 84436; 84443

== ENCOUNTER → 2021-12-15 | Outpatient (CLI) | payer MEDICARE, OTHER, SELFPAY ==
--- NOTE | 2021-12-15 15:19 | RAD_ITS ---
EXAM: XR CHEST, 2 VIEWS CLINICAL INDICATION: BRONCHITIS TECHNIQUE: Frontal and lateral views of the chest. This report was created using [email or web address] report generation technology. COMPARISON: XR Chest dated 01/19/2021 FINDINGS: LUNGS AND PLEURAL SPACES: Normal. No consolidation or edema. No pneumothorax. No effusion. HEART: Normal. Normal heart size. MEDIASTINUM: Central airways and mediastinal contour are unremarkable. BONES/JOINTS: Normal. SOFT TISSUES: Normal. UPPER ABDOMEN: Elevation of the right hemidiaphragm again noted. RAD/Chest PA and Lateral IMPRESSION: No acute cardiopulmonary abnormality. No interval change. Electronically Signed: Abran Chen MD at 16:26 EDT ,
== END | disposition home or self-care (01) ==
PROVIDERS: PCP Family Medicine; Referring Provider Family Medicine; Visit Provider Family Medicine
DX: J20.9 Acute bronchitis, unspecified (principal)
CPT/HCPCS: 71046

== ENCOUNTER 2022-08-18 14:22 | Emergency (ER) | payer MEDICARE, OTHER, SELFPAY ==
[2022-08-18 14:23] VITALS: BP 150/75; PULSE 113; RESP 18; TEMP 37.2; O2SAT 99; BMI 28.1
[2022-08-18 14:57] VITALS: PULSE 97; RESP 16; O2SAT 94
--- NOTE | 2022-08-18 15:13 | EDS_ITS ---
HPI History of Present Illness Chief Complaint: Shortness of Breath Informant: patient Onset/Context/Timing Onset: Weeks Narrative Narrative: Patient states first week she has felt short of breath. Seems random. In addition she is having ache/heaviness-discomfort in her lower chest/upper abdomen. This discomfort is intermittent, the dyspnea is all the time even with rest, actually improving when she walks and gets around exerting herself which does not cause dyspnea or chest heaviness. The discomfort is worse with some things that she eats but not everything, and when it is worse with eating, it is quick after eating. She states it is better when she takes Pepto-Bismol which she has been doing a lot and since she has been doing that, she has been getting some black solid stools but no melena or bright red blood per rectum. She had no black stools prior to taking any Pepto-Bismol. She states she has been anxious but is not sure if that is causing this or not, she has no reason necessarily to be anxious. On that note, she states she is as of last year. 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 She and her are from here but he is to go down to [place] together for the winter, she did go this winter, she sold her house down there, she states that she came back 1 month ago, and she does not think that necessarily triggered all of this, and she states it did not necessarily trigger any panic attacks, anxiety, or another emotional disturbance. However, she did not have the symptoms until after she returned back to [place]. She has never had any abdominal surgeries. She denies any nausea or vomiting with this. [facility] Medical History Anxiety GERD (gastroesophageal reflux disease) Home Medications Aspirin, Baby 81 mg PO DAILY 09/05/14 [History Last Taken 09/05/14] multivitamin 1 tab PO DAILY 01/19/21 [History Last Taken Unknown] esomeprazole magnesium 40 mg capsule,delayed release (Nexium) 40 mg PO BID #28 caps 08/18/22 [Rx Last Taken Unknown] Allergy/AdvReac Type Severity Reaction Status Date / Time No Known Allergies Allergy Verified 08/18/22 14:23 Social History Smoking Status: Never smoker ROS ROS ED Constitutional Constitutional ED: Denies chills or fever(s) Eyes Eyes: Denies change in vision or diplopia ENT ENT ED: Denies rhinorrhea or sore throat Cardiovascular Cardiovascular: Reports chest pain; Denies orthopnea or palpitations Respiratory/Chest Respiratory/Chest: Reports cough and dyspnea; Denies dyspnea on exertion or orthopnea Gastrointestinal Gastrointestinal: Reports abdominal pain; Denies diarrhea, hematochezia, melena, nausea or vomiting Genitourinary Genitourinary ED: Denies dysuria or hematuria Musculoskeletal Musculoskeletal: Denies back pain or neck pain Integumentary Denies abscess or rash Neurologic Neurologic: Denies headache(s), paresthesias or weakness Psychiatric Psychiatric: Reports anxiety; Denies suicidal thoughts EXAM Physical Exam Const Vital Signs: 08/18/22 14:23 08/18/22 14:57 08/18/22 14:57 Temperature 98.9 F Temperature Source Temporal Pulse Rate 113 H 97 Respiratory Rate 18 16 Respiratory Effort Normal Respiratory Depth Normal Respiratory Pattern Normal Blood Pressure 150/75 H Blood Pressure Mean 100 Pulse Ox 99 94 Oxygen Delivery Method Room Air 08/18/22 15:01 08/18/22 16:31 Temperature Temperature Source Pulse Rate 88 Respiratory Rate 18 Respiratory Effort Normal Respiratory Depth Respiratory Pattern Normal Blood Pressure 121/71 H Blood Pressure Mean 87 Pulse Ox 96 Oxygen Delivery Method Room Air Positive well nourished and well developed General Appearance ED: well developed and NAD HEENT Reports moist mucous membranes normocephalic and atraumatic Eyes PERRL and EOMs intact bilaterally Neck full ROM and supple Resp normal respiratory effort and clear to auscultation bilaterally Cardio regular rate, regular rhythm and no murmurs Rate: tachycardic GI non-tender, non-distended and no masses Auscultation: normoactive bowel sounds Palpation: soft Back/Spine no CVA tenderness General Back: other FROM Extremity normal to inspection General Extremety ED: Negative for edema, pulses abnormal or tenderness General Extremity: Negative for edema or pulses abnormal Neuro oriented x3, CN's II-XII intact bilaterally and no sensory deficits noted Sensorium / Orientation: awake and alert Motor Exam: strength 5/5 throughout Psych mental status grossly normal Skin no rashes or lesions noted and no wounds MDM MDM MDM Narrative Medical decision making narrative: Wide differential here including upper abdominal processes in addition to thoracic processes which could be cardiac or pulmonary in etiology, or vascular including PE. This was considered due to her recent trip and the fact that she is mildly tachycardic at rest although she is not hypoxic and the rest of her vital signs are unremarkable. She is low risk for PE other than the travel, and meets Wells criteria for obtaining a D-dimer. This was done and it was negative, actually lower than the low range, which is good enough to rule out pulmonary embolus in acute context. 2 view chest x-ray my interpretation is normal. She does not have any anemia or elevation of BUN to suggest upper GI bleeding as cause for her black stools, which I agree you are probably related to the Pepto-Bismol. The rest of her work-up is negative including cardiac testing, inform of EKG, troponin, BNP. On reevaluation her vital signs are normal without specific treatment. I reassured the patient, she is already on esomeprazole daily. My advice is to double that for 2 weeks, taking 40 mg twice daily, and follow-up with her doctor she is comfortable with that plan. Sounds more like upper GI etiology rather than biliary colic, her LFTs and lipase are normal here. Lab Data Attestation: I reviewed the patient's lab results. Labs: Laboratory Results - last 24 hr 08/18/22 08/18/22 08/18/22 15:40 15:40 15:40 WBC 6.7 RBC 4.30 Hgb 14.1 Hct 39.1 MCV 90.9 MCH 32.8 H MCHC 36.1 H RDW Std Deviation 42.3 RDW Coeff of Scot 13.1 Plt Count 314 MPV 8.8 Immature Gran % (Auto) 0.300 Neut % (Auto) 65.3 Lymph % (Auto) 24.0 [place] % (Auto) 7.9 Eos % (Auto) 1.9 Baso % (Auto) 0.6 Absolute Neuts (auto) 4.4 Absolute Lymphs (auto) 1.61 Nucleated RBC % 0 D-Dimer Quant (PE/DVT) < 0.27 L Sodium Potassium Chloride Carbon Dioxide Anion Gap BUN Creatinine Estim Creat Clear Calc Est GFR (MDRD) Af Amer Est GFR (MDRD) Non-Af BUN/Creatinine Ratio Glucose Calcium Total Bilirubin AST ALT Alkaline Phosphatase Troponin I High Sens B-Natriuretic Peptide 52.3 Total Protein Albumin Globulin Albumin/Globulin Ratio Lipase Urine Color Urine Clarity Urine pH Ur Specific [place] Urine Protein Urine Glucose (UA) Urine Ketones Urine Occult Blood Urine Nitrite Urine Bilirubin Urine Urobilinogen Ur Leukocyte Esterase Urine RBC Urine WBC Ur Squamous Epith Cells Urine Bacteria Urine Mucus 08/18/22 08/18/22 15:40 16:03 WBC RBC Hgb Hct MCV MCH MCHC RDW Std Deviation RDW Coeff of Scot Plt Count MPV Immature Gran % (Auto) Neut % (Auto) Lymph % (Auto) [place] % (Auto) Eos % (Auto) Baso % (Auto) Absolute Neuts (auto) Absolute Lymphs (auto) Nucleated RBC % D-Dimer Quant (PE/DVT) Sodium 140 Potassium 3.8 Chloride 106 Carbon Dioxide 30.0 Anion Gap 4 L BUN 8 Creatinine 0.64 Estim Creat Clear Calc 34.90 Est GFR (MDRD) Af Amer 115 Est GFR (MDRD) Non-Af 95 BUN/Creatinine Ratio 12.5 Glucose 120 H Calcium 9.3 Total Bilirubin 0.20 AST 14 L ALT 18 Alkaline Phosphatase 75 Troponin I High Sens 4 B-Natriuretic Peptide Total Protein 7.0 Albumin 3.5 Globulin 3.5 Albumin/Globulin Ratio 1.0 Lipase 51 L Urine Color Yellow Urine Clarity Clear Urine pH 6.0 Ur Specific [place] 1.020 Urine Protein 15 H Urine Glucose (UA) Normal Urine Ketones 5 H Urine Occult Blood 25 H Urine Nitrite Negative Urine Bilirubin Negative Urine Urobilinogen Normal Ur Leukocyte Esterase Negative Urine RBC 0 SEEN Urine WBC 0 SEEN Ur Squamous Epith Cells 0 SEEN Urine Bacteria 0 SEEN Urine Mucus 0 SEEN Radiography Diagnostic Testing: Clinical Impression(s) from Imaging Studies Chest X-Ray 08/18/22 15:50 IMPRESSION: No acute cardiopulmonary disease or interval change. Electronically Signed: Logan Horta DO at 16:04 EDT Reading Location ID and State: [address] [place] [address] Tel [phone], Service support , Rhythm Strip Rhythm Strip: Sinus Rhythm Rate: 93 Ectopy: None EKG Initial EKG: Attestation: I personally reviewed and interpreted this EKG as follows: Interpretation: Sinus Rhythm and No Acute Injury Pattern Comments: normal EKG Prior EKG tracings: available for review Prior: Unchanged Discharge Plan Triage Chief Complaint: Shortness of Breath ED Provider: Lloyd Herrera Dx/Rx/DC Orders Clinical Impression: Chest pain, Acute epigastric pain, Acute dyspnea Instructions: ED Abdominal Pain Unkn Cause Fem, ED Dyspnea Prescriptions: Continued Aspirin, Baby 81 mg PO DAILY multivitamin Tablet 1 tab PO DAILY Changed esomeprazole magnesium [Nexium] 40 MG capsule 40 mg PO BID Qty: 28 0RF Primary Care Provider: Eleanor Crowley Referrals: Eleanor Crowley MD [Primary Care Provider] - As soon as possible (Call for appointment) Activity Restrictions/Additional Instructions: New prescription is 2-week course for your medication twice daily instead of once, and then after that you may go back to once daily and less otherwise directed by your physician. Disposition Disposition: Home, Self Care
--- NOTE | 2022-08-18 15:50 | RAD_ITS ---
STUDY: X-RAY CHEST REASON FOR EXAM: Female, 81 years old. Shortness of breath and shaking for one week. TECHNIQUE: PA and lateral views of the chest. COMPARISON: December 14, 2021. FINDINGS: Continued elevation of right hemidiaphragm. The lungs appear clear. There is no demonstrated pleural abnormality. Normal size heart. Normal mediastinum and summer. Normal visualized pulmonary arteries. There is mild atherosclerotic calcification of the aortic arch with tortuosity. There are diffuse degenerative changes of the visualized thoracic spine. There is degenerative osteoarthritis of the bilateral shoulders. Surgical suture anchor is again seen in the right humeral head. There is no demonstrated abnormality of the visualized soft tissue structures of the upper abdomen. RAD/Chest PA and Lateral IMPRESSION: No acute cardiopulmonary disease or interval change. Electronically Signed: Logan Horta DO at 16:04 EDT ,
[2022-08-18 16:08] LABS: Bacteria 0 SEEN /hpf (None Seen); Mucous, Urine 0 SEEN /hpf (<or=2+); Red Blood Cells-Urine 0 SEEN /hpf (0-5); Squamous Epithelial Cells - UA 0 SEEN /hpf (5-10); White Blood Cells 0 SEEN /hpf (0-5)
[2022-08-18 16:09] LABS: AST(SGOT) 14 U/L (15-37); Absolute Lymphocyte Count 1.61 X10^3/uL (0.83-4.51); Absolute Neutrophil Count 4.4 X10^3/uL (2.0-7.7); Alanine Aminotransfer ALT/SGPT 18 U/L (13-56); Albumin, Serum 3.5 g/dL (3.2-5.0); Alkaline Phosphatase 75 U/L (45-117); Anion Gap 4 (5-15); BUN 8 mg/dL (7-18); BUN/Creat Ratio 12.5 RATIO (10-20); Basophil# 0.04 X10^3/uL; Basophil% 0.6 % (0-1); Calcium,Total 9.3 mg/dL (8.5-10.1); Chloride 106 mmol/L (98-107); Creatinine, Serum 0.64 mg/dL (0.55-1.02); EST Glomerular Filtration Rate 95 mL/min (>60); Eosinophil# 0.13 X10^3/uL; Eosinophils% 1.9 % (0-5); Est Glom Filt Rate - Afr Amer 115 mL/min (>60); Globulin 3.5 g/dL (2.2-4.2); Glucose 120 mg/dL (74-106); Hematocrit 39.1 % (37-47); Hemoglobin 14.1 g/dL (12.0-15.0); Lipase 51 U/L (73-393); Lymphocyte # 1.61 X10^3/ul (0.83-4.51); Mean Corp Hgb Conc 36.1 g/dL (32-36); Mean Corpuscular Hgb 32.8 pg (27.0-32.0); Mean Corpuscular Volume 90.9 fL (81-99); Mean Platelet Vol. 8.8 fl (6.2-12.0); Monocyte# 0.53 X10^3/uL; Monocyte% 7.9 % (0-10); NRBC Flagged by Analyzer 0 % (0-5); Neutrophil # 4.38 X10^3/uL (2.7-7.7); Neutrophil % 65.3 % (47-70); Platelet Count 314 K/mm3 (150-450); Potassium 3.8 mmol/L (3.5-5.1); RBC Distribution Width CV 13.1 % (11.6-14.6); RBC Distribution Width SD 42.3 fl (35.1-43.9); Sodium Level 140 mmol/L (136-145); Troponin-I HS 4 pg/mL (3.0-54.0); White Blood Count 6.7 K/mm3 (4.4-11.0)
[2022-08-18 16:15] LABS: Color, Urine Yellow (Yellow); Glucose, Dipstick Normal (Normal); Ketone-Dipstick 5 mg/dl (Negative); Leukocyte Esterase-Dipstick Negative /ul (Negative); Nitrite-Dipstick Negative (Negative); Occult Blood-Urine 25 /ul (Negative); Protein-Dipstick 15 mg/dl (Negative); Urine Bilirubin Dipstick Negative (Negative); Urine Clarity Clear (Clear); Urine Urobilinogen Normal (Normal)
[2022-08-18 16:31] VITALS: BP 121/71; PULSE 88; RESP 18; O2SAT 96
[2022-08-18 16:44] LABS: BNP,B-Type NATRIURETIC PEPTIDE 52.3 pg/mL (0-100)
[2022-08-18 16:57] LABS: D-Dimer Quantitative (DVT/PE) < 0.27 FEU/ug/m (0.27-0.49)
[2022-08-18 17:52] VITALS: BP 100/71; PULSE 83; RESP 18; O2SAT 98
== END 2022-08-18 17:53 | disposition home or self-care (01) ==
PROVIDERS: Emergency Provider Emergency Medicine; PCP Family Medicine; Visit Provider Emergency Medicine
DX: R07.9 Chest pain, unspecified (principal); R10.13 Epigastric pain; R05.9 Cough, unspecified; R06.00 Dyspnea, unspecified; K21.9 Gastro-esophageal reflux disease without esophagitis; F41.9 Anxiety disorder, unspecified; Z79.82 Long term (current) use of aspirin; Z79.899 Other long term (current) drug therapy
CPT/HCPCS: 71046; 80053; 81001; 83690; 83880; 84484; 85025; 85379; 93005; 99285; A4216

== ENCOUNTER → 2022-08-26 | Outpatient (CLI) | payer MEDICARE, OTHER, SELFPAY | END | disposition home or self-care (01) | LOC: MFPLAB 09:55 | PROVIDERS: PCP Family Medicine; Visit Provider Family Medicine | DX: R00.2 Palpitations (principal) | CPT/HCPCS: 36415; 84443 ==

== ENCOUNTER 2023-06-15 17:48 | Emergency (ER) | payer MEDICARE, OTHER, SELFPAY ==
[2023-06-15 17:49] VITALS: BP 111/85; PULSE 106; RESP 18; TEMP 36.3; O2SAT 93; BMI 29.3
[2023-06-15 18:28] LABS: Absolute Lymphocyte Count 1.77 X10^3/uL (0.83-4.51); Basophil# 0.08 X10^3/uL; Basophil% 0.7 % (0-1); Eosinophil# 0.05 X10^3/uL; Eosinophils% 0.4 % (0-5); Hematocrit 42.9 % (37-47); Hemoglobin 14.3 g/dL (12.0-15.0); Lymphocyte # 1.77 X10^3/ul (0.83-4.51); Mean Corp Hgb Conc 33.3 g/dL (32-36); Mean Corpuscular Hgb 28.8 pg (27.0-32.0); Mean Corpuscular Volume 86.3 fL (81-99); Mean Platelet Vol. 8.6 fl (6.2-12.0); Monocyte# 0.77 X10^3/uL; Monocyte% 6.5 % (0-10); NRBC Flagged by Analyzer 0 % (0-5); Neutrophil # 9.03 X10^3/uL (2.7-7.7); Neutrophil % 76.6 % (47-70); Platelet Count 390 K/mm3 (150-450); RBC Distribution Width CV 13.1 % (11.6-14.6); RBC Distribution Width SD 40.3 fl (35.1-43.9); Red Blood Count 4.97 M/mm3 (4.2-5.4); White Blood Count 11.8 K/mm3 (4.4-11.0)
[2023-06-15] MEDS: Ondansetron 4 MG/2 ML Vial IV (18:31)
[2023-06-15] MEDS: 0.9% Normal Saline (1000mL) 1,000 ML 1000 ML IV (18:31)
[2023-06-15] MEDS: Mag Hydrox/Al Hydrox/Simeth 30 ML UDC PO (18:31)
--- NOTE | 2023-06-15 18:33 | EX.ED.DYSGE1 ---
HPI <ELDON Meyer - Last Filed: 06/15/23 19:19> History of Present Illness Chief Complaint: Chest Pain Narrative Narrative: Patient is a 82-year-old female with history of hypothyroidism, GERD who presents the emergency department with 1 week of midsternal chest pain, epigastric pain that raise to her back. Patient dates that eating does make it worse. Patient did have something similar in August of last year however states this is worse. She denies any recent travel, recent surgery, she denies any history of blood clots in legs or lungs. She denies any vomiting. PFSH <ELDON Meyer - Last Filed: 06/15/23 19:19> FORMERLY [facility] Medical History Anxiety GERD (gastroesophageal reflux disease) Home Medications Aspirin, Baby 81 mg PO DAILY 09/05/14 [History Last Taken 09/05/14] multivitamin 1 tab PO DAILY 01/19/21 [History Last Taken Unknown] esomeprazole magnesium 40 mg capsule,delayed release (Nexium) 40 mg PO BID #28 caps 08/18/22 [Rx Last Taken Unknown] sucralfate 1 gram tablet (Carafate) 1 g PO TID #30 tabs 06/15/23 [Rx Last Taken Unknown] Allergy/AdvReac Type Severity Reaction Status Date / Time No Known Allergies Allergy Verified 06/15/23 17:49 Social History Smoking Status: Never smoker ROS <ELDON Meyer - Last Filed: 06/15/23 19:19> ROS ED ROS Narrative Constitutional: Negative for fever, chills, weight loss, weakness Eyes: Negative for vision loss, vision change, double vision ENT: Negative for any sore throat, ear pain, congestion Cardiovascular: Negative for any tightness, palpitations. Positive chest pain, shortness of breath Respiratory: Negative for any cough, sputum production, hemoptysis, dyspnea, dyspnea on exertion, orthopnea Gastrointestinal: Negative for any nausea, vomiting, diarrhea, constipation, blood in stool, blood in vomit. Positive epigastric abdominal pain : Negative for any urinary frequency, dysuria, retention, blood in urine Muscle skeletal: Negative for any myalgias, arthralgias, neck pain, back pain Neurological: Negative for any headache, syncope, paresthesias, dizziness Skin: Negative for any rashes, lumps, itching, abrasions, lacerations Psychiatric: Negative for any depression, anxiety, stress, suicidal ideation, homicidal ideation Hematologic: Negative for any easy bruising, excessive bruising, easy bleeding Allergies: Negative for any eczema, hives, rash EXAM <ELDON Meyer - Last Filed: 06/15/23 19:19> Physical Exam Narrative Exam Narrative: Vital signs reviewed. HEET: Head normocephalic atraumatic, TMs clear bilaterally. Posterior pharynx is clear, moist mucous membranes. Nares clear bilaterally. Neck: Supple with no lymphadenopathy or tenderness. No signs of meningismus. Cardiac: Tachycardic no murmurs gallops or rubs, equal peripheral pulses bilaterally. Respiratory: Lungs clear to auscultation bilaterally. No chest tenderness. Abdomen: Soft, nontender, nondistended. No abdominal bruit or pulsatile masses. No hepatosplenomegaly Extremities: No peripheral edema, no signs of gross trauma or deformity. Active full range of motion of all extremities. Neuro: Cranial nerves II through XII intact, no focal neurological deficits. Skin: Clean dry and intact with no rash, purpura, petechiae, vesicles or pustules. Backs/flank: No CVA tenderness, no midline spinal tenderness, no deformity. Psych: Normal mood and affect. No SI, HI or acute psychosis. Const Vital Signs: 06/15/23 17:49 Temperature 97.4 F L Temperature Source Temporal Pulse Rate 106 H Respiratory Rate 18 Blood Pressure 111/85 H Blood Pressure Mean 93 Pulse Ox 93 Oxygen Delivery Method Room Air Positive well nourished and well developed General Appearance ED: well developed <Dr. Lloyd Herrera MD - Last Filed: 06/15/23 19:35> Physical Exam Const Vital Signs: 06/15/23 17:49 Temperature 97.4 F L Temperature Source Temporal Pulse Rate 106 H Respiratory Rate 18 Blood Pressure 111/85 H Blood Pressure Mean 93 Pulse Ox 93 Oxygen Delivery Method Room Air MDM <ELDON Meyer - Last Filed: 06/15/23 19:19> MDM Lab Data Labs: Laboratory Results - last 24 hr 06/15/23 18:19 WBC 11.8 H RBC 4.97 Hgb 14.3 Hct 42.9 MCV 86.3 MCH 28.8 MCHC 33.3 RDW Std Deviation 40.3 RDW Coeff of Scot 13.1 Plt Count 390 MPV 8.6 Immature Gran % (Auto) 0.800 Neut % (Auto) 76.6 H Lymph % (Auto) 15.0 L [place] % (Auto) 6.5 Eos % (Auto) 0.4 Baso % (Auto) 0.7 Absolute Neuts (auto) 9.0 H Absolute Lymphs (auto) 1.77 Nucleated RBC % 0 D-Dimer Quant (PE/DVT) < 0.27 L Sodium 138 Potassium 4.0 Chloride 109 H Carbon Dioxide 26.0 Anion Gap 3 L BUN 12 Creatinine 0.79 Estim Creat Clear Calc 50.67 Est GFR (MDRD) Af Amer 90 Est GFR (MDRD) Non-Af 74 BUN/Creatinine Ratio 15.2 Glucose 143 H Calcium 9.2 Total Bilirubin 0.20 AST 13 L ALT 19 Alkaline Phosphatase 80 Troponin I High Sens 4 Total Protein 7.3 Albumin 3.4 Globulin 3.9 Albumin/Globulin Ratio 0.9 Lipase 35 Radiography Diagnostic Testing: Clinical Impression(s) from Imaging Studies Chest X-Ray 06/15/23 18:35 IMPRESSION: No radiographic evidence of acute cardiopulmonary disease. Electronically Signed: Matt Keating DO at 19:07 EST Reading Location ID and State: [address] [place] [address] Tel [phone], Service support , EKG Sinus tachycardia: Attestation: I personally reviewed and interpreted this EKG as follows: Interpretation: Sinus Rhythm Comments: Sinus tachycardia, rate 111 bpm, [place] interval 140 ms, QRS duration 80 ms, no acute ST elevation, no acute infarct noted Treatment and Re-Evaluation :: Patient appears to be in no obvious distress, vital signs are stable, patient slight tachycardic. Presenting to the emergency department with epigastric pain, chest pain that radiates to her back. Differential diagnose includes ACS, MT, acute cholecystitis, GERD. Patient received a full cardiac workup, including troponin. Patient will also receive abdominal labs including CBC CMP lipase. Patient be given GI cocktail, chest x-ray, also will be added a D-dimer concerning for any pulmonary embolus. EKG was unremarkable. Patient's CBC shows a slight leukocytosis of white blood count of 11.8. Patient's D-dimer was negative. Patient's chemistries show glucose of 143, no transaminitis, lipase was negative. Patient's troponin was negative. At this time, is no evidence of any pulmonary embolus, ACS, MT. Patient did have relief of symptoms with GI cocktail. Two-view chest x-ray was negative for any acute process. At this time, patient be diagnosed with GERD, epigastric pain. She will follow-up outpatient instructed return for any worsening symptoms. <Dr. Lloyd Herrera MD - Last Filed: 06/15/23 19:35> MDM MDM Narrative Medical decision making narrative: I have personally performed a face to face assessment of the patient and have reviewed the JOSE ALEJANDRO Note. I performed a substantive portion of the visit including all aspects of the following. My dela cruz findings include: History is discomfort all week in her upper abdomen from the umbilicus to the epigastrium, up the mid chest, makes her short of breath but is nonpleuritic, she has a history of this occurring for months and states it has been occurring not infrequently but much more persistent and frequent in the past week. Exam is well-appearing, heart RRR no murmur, CTAB, abdomen soft nontender nondistended no pulsatile mass. Medical Decison Making cardiac workup, also will add liver enzymes and lipase to evaluate for pancreatitis/other acute intra-abdominal issues. She is having no hematemesis, no melena, she is having some solid black stools which is common after she takes Pepto-Bismol. We will check her blood counts. Other additions or changes: [None] Lab Data Attestation: I reviewed the patient's lab results. Labs: Laboratory Results - last 24 hr 06/15/23 18:19 WBC 11.8 H RBC 4.97 Hgb 14.3 Hct 42.9 MCV 86.3 MCH 28.8 MCHC 33.3 RDW Std Deviation 40.3 RDW Coeff of Scot 13.1 Plt Count 390 MPV 8.6 Immature Gran % (Auto) 0.800 Neut % (Auto) 76.6 H Lymph % (Auto) 15.0 L [place] % (Auto) 6.5 Eos % (Auto) 0.4 Baso % (Auto) 0.7 Absolute Neuts (auto) 9.0 H Absolute Lymphs (auto) 1.77 Nucleated RBC % 0 D-Dimer Quant (PE/DVT) < 0.27 L Sodium 138 Potassium 4.0 Chloride 109 H Carbon Dioxide 26.0 Anion Gap 3 L BUN 12 Creatinine 0.79 Estim Creat Clear Calc 50.67 Est GFR (MDRD) Af Amer 90 Est GFR (MDRD) Non-Af 74 BUN/Creatinine Ratio 15.2 Glucose 143 H Calcium 9.2 Total Bilirubin 0.20 AST 13 L ALT 19 Alkaline Phosphatase 80 Troponin I High Sens 4 Total Protein 7.3 Albumin 3.4 Globulin 3.9 Albumin/Globulin Ratio 0.9 Lipase 35 Radiography Diagnostic Testing: Clinical Impression(s) from Imaging Studies Chest X-Ray 06/15/23 18:35 IMPRESSION: No radiographic evidence of acute cardiopulmonary disease. Electronically Signed: Matt Keating DO at 19:07 EST Reading Location ID and State: [facility] [place] Tel [phone], Service support , Discharge Plan Triage Chief Complaint: Chest Pain ED Midlevel Provider: Tao Orozco ED Provider: Lloyd Herrera Dx/Rx/DC Orders Clinical Impression: Epigastric abdominal pain, Gastroesophageal reflux disease Instructions: ED GERD (Adult), ED Epigastric Pain Uncertain Cause Prescriptions: New sucralfate [Carafate] 1 gram tablet 1 g PO TID Qty: 30 0RF No Action Aspirin, Baby 81 mg PO DAILY multivitamin Tablet 1 tab PO DAILY esomeprazole magnesium [Nexium] 40 MG capsule 40 mg PO BID Qty: 28 0RF Primary Care Provider: Eleanor Crowley Referrals: Eleanor Crowley MD [Primary Care Provider] - Wilfredo Cardenas DO [Med Staff - Active Staff] - Disposition Disposition: Home, Self Care
--- NOTE | 2023-06-15 18:35 | RAD_ITS ---
INDICATION: chest pain EXAMINATION/TECHNIQUE: X-RAY - XR Chest 1 View COMPARISON: August 18, 2022 FINDINGS: LINES/DEVICES: None. LUNGS: No consolidation, edema or effusion. No pneumothorax. Elevated right hemidiaphragm. MEDIASTINUM AND CARDIOVASCULAR STRUCTURES: Cardiac silhouette not enlarged. Central airways and mediastinal contour are unremarkable. BONES AND SOFT TISSUES: Unremarkable. RAD/Chest 1 View (Portable) IMPRESSION: No radiographic evidence of acute cardiopulmonary disease. Electronically Signed: Matt Keating DO at 19:07 EST ,
[2023-06-15 18:44] LABS: D-Dimer Quantitative (DVT/PE) < 0.27 FEU/ug/m (0.27-0.49)
[2023-06-15 18:50] LABS: ALB/GLOB Ratio 0.9 RATIO (0.9-2.4); AST(SGOT) 13 U/L (15-37); Alanine Aminotransfer ALT/SGPT 19 U/L (13-56); Albumin, Serum 3.4 g/dL (3.2-5.0); Alkaline Phosphatase 80 U/L (45-117); Anion Gap 3 (5-15); BUN 12 mg/dL (7-18); BUN/Creat Ratio 15.2 RATIO (10-20); Calcium,Total 9.2 mg/dL (8.5-10.1); Chloride 109 mmol/L (98-107); Creatinine, Serum 0.79 mg/dL (0.55-1.02); EST Glomerular Filtration Rate 74 mL/min (>60); Est Glom Filt Rate - Afr Amer 90 mL/min (>60); Estimated Creatinine Clearance 50.67 ml/min; Globulin 3.9 g/dL (2.2-4.2); Glucose 143 mg/dL (74-106); Lipase 35 U/L (13-75); Protein, Total 7.3 g/dL (6.4-8.2); Sodium Level 138 mmol/L (136-145); Troponin-I HS 4 pg/mL (3.0-54.0)
[2023-06-15 19:41] VITALS: BP 124/69; PULSE 72; RESP 15; O2SAT 98
== END 2023-06-15 19:53 | disposition home or self-care (01) ==
PROVIDERS: Nurse Practitioner; Emergency Provider Emergency Medicine; PCP Family Medicine; Visit Provider Emergency Medicine
DX: K21.9 Gastro-esophageal reflux disease without esophagitis (principal); R06.02 Shortness of breath; R10.13 Epigastric pain; R00.0 Tachycardia, unspecified; Z79.82 Long term (current) use of aspirin; Z79.899 Other long term (current) drug therapy
CPT/HCPCS: 71045; 80053; 83690; 84484; 85025; 85379; 93005; 96361; 96374; 99283; J7030; A4216; J2405

== ENCOUNTER 2023-06-29 11:59 | Emergency (ER) | payer MEDICARE, OTHER, SELFPAY ==
[2023-06-29] VITALS (7 sets, daily range): BP systolic 96–148; BP diastolic 64–87; PULSE 87–121; RESP 16–23; TEMP 35.5–36; O2SAT 94–98; BMI 29.4
--- NOTE | 2023-06-29 12:18 | EKG12_ITS ---
Test Reason : NEURO Blood Pressure : / mmHG Vent. Rate : 088 BPM Atrial Rate : 088 BPM P-R Int : 152 ms QRS Dur : 076 ms QT Int : 344 ms P-R-T Axes : 077 -02 050 degrees QTc Int : 416 ms Sinus rhythm with occasional Premature ventricular complexes Nonspecific ST and T wave abnormality Abnormal ECG Confirmed by Taj Cotetr ([id number]), publishing editor ALBERTO GRIMM ([id number]) on 06/30/2023 9:45:10 AM Referred By: Confirmed By:Taj Cotter
--- NOTE | 2023-06-29 12:19 | CT_ITS ---
STUDY: CTA HEAD AND NECK WITH CONTRAST REASON FOR EXAM: Female, 82 years old. Neuro deficit, acute, stroke suspected RADIATION DOSAGE (If Supplied By Facility): CTDIvol = ( 28 ) mGy, DLP = ( 1441.51 ) mGycm TECHNIQUE: CT angiography was performed with a multi-detector CT scanner. Data acquisition was obtained from the skull base through the vertex following intravenous administration of IV 100mL [id number]. MIP images were reconstructed from the axial data set. Post-processing of the angiographic images was performed, with multiplanar reformation and 3D reconstruction. Individualized dose optimization techniques were used for this CT. COMPARISON: No relevant priors. FINDINGS: Normal bilateral petrous carotid arteries. There is calcified plaque formation of the right cavernous carotid artery, without a cross-sectional luminal stenosis. There is calcified plaque formation of the left cavernous carotid artery, without a cross-sectional luminal stenosis. Normal right A1 segments of the anterior cerebral artery. Normal left A1 segments of the anterior cerebral artery. Normal intact anterior communicating artery (ACOM). Normal bilateral A2 segments of the anterior cerebral arteries. Normal right M1 and M2 segments of the middle cerebral arteries, with a normal M1 bifurcation. Normal left M1 and M2 segments of the middle cerebral arteries, with a normal M1 bifurcation. Normal right posterior communicating artery (PCOM). Normal left posterior communicating artery (PCOM). Normal bilateral vertebral arteries. Normal basilar artery with a normal basilar bifurcation. The visualized bilateral superior cerebellar (SCA) arteries are normal. Normal bilateral P1, P2 and visualized P3 segments of the posterior cerebral arteries. There is no demonstrated aneurysm of the [place]. Mild degree of cerebral atrophy. Questionable tiny old lacunar in the insular cortex of the left temporal lobe. AORTIC ARCH: Normal visualized aortic arch. Normal origins of the brachiocephalic, left common carotid, and left subclavian arteries. RIGHT CAROTID ARTERIES: Normal right common carotid artery (CCA). Normal right common carotid bulb. Normal origin of the right internal carotid (ICA) artery without a hemodynamically significant stenosis. Normal visualized cervical portion of the right internal carotid artery. Normal origin of the right external carotid artery (ECA). LEFT CAROTID ARTERIES: Normal left common carotid artery (CCA). Normal left common carotid bulb. Normal origin of the left internal carotid (ICA) artery without a hemodynamically significant stenosis. Normal visualized cervical portion of the left internal carotid artery. Normal origin of the left external carotid artery (ECA). VERTEBRAL ARTERIES: There is enhancement within the bilateral vertebral arteries with a small right vertebral artery, and a dominant left vertebral artery. There is a 4.4 mm hypodense nodule in the left lobe of the thyroid. CT/CTA Head AND Neck W/ Contrast IMPRESSION: Normal CTA Head and neck with contrast. Questionable tiny old lacunar infarct in the anterior cortex of the left temporal lobe. N.B. : The above Results were Read Back by Germain Vicente MD to Dr Hemal MD, and understanding confirmed on 06/29/2023 13:48:59 (ET). Electronically Signed: Germain Vicente MD at 13:49 EST ,
--- NOTE | 2023-06-29 12:45 | RAD_ITS ---
STUDY: X-RAY CHEST REASON FOR EXAM: Female, 82 years old. Neuro deficit, acute, stroke suspected TECHNIQUE: Single AP portable view of the chest. COMPARISON: Comparison is made with prior study dated June 15, 2023. FINDINGS: EKG electrodes are seen. Stable elevation of the right hemidiaphragm. There is no demonstrated pleural abnormality. Normal size heart. Normal mediastinum and summer. Normal visualized pulmonary arteries. There is atherosclerotic tortuosity of the aortic arch and descending thoracic aorta. There are degenerative changes of the visualized thoracic spine. Prior right rotator cuff surgery. There is no demonstrated abnormality of the visualized soft tissue structures of the upper abdomen. RAD/Chest 1 View IMPRESSION: Stable elevation of the right hemidiaphragm. No acute abnormality is seen. Electronically Signed: Germain Vicente MD at 13:03 EST ,
--- NOTE | 2023-06-29 12:45 | EX.ED.DYSGE1 ---
HPI <Yanet Sanches RN - Last Filed: 06/29/23 14:57> History of Present Illness Chief Complaint: Numb/Ting Detail of Chief Complaint: Tingling to left leg and left arm Informant: patient Onset/Context/Timing Onset: Yesterday Timing: Continuous Quality: Tingling Location: Left arm and left leg Current Severity: Mild Maximum Severity: Mild Narrative Narrative: Patient presents to the ED for tingling to left left leg x 2 months. Left arm tingling beginning yesterday a.m. upon awakening. Denies injury. Denies facial droop, difficulty swallowing, difficulty speaking, weakness. Denies chest pain or shortness of breath. Prior similar symptoms: No Recent Illness/Hospitalization: No PFSH <Yanet Sanches RN - Last Filed: 06/29/23 14:57> PFSH Medical History Anxiety GERD (gastroesophageal reflux disease) Home Medications Aspirin, Baby 81 mg PO DAILY 09/05/14 [History Last Taken 09/05/14] multivitamin 1 tab PO DAILY 01/19/21 [History Last Taken Unknown] esomeprazole magnesium 40 mg capsule,delayed release (Nexium) 40 mg PO BID #28 caps 08/18/22 [Rx Last Taken Unknown] sucralfate 1 gram tablet (Carafate) 1 g PO TID #30 tabs 06/15/23 [Rx Last Taken Unknown] Allergy/AdvReac Type Severity Reaction Status Date / Time No Known Allergies Allergy Verified 06/29/23 12:01 Social History Smoking Status: Never smoker ROS <Yanet Sanches RN - Last Filed: 06/29/23 14:57> ROS ED Constitutional Constitutional ED: Denies chills, fever(s) or sweats Eyes Eyes: Denies blurry vision, change in vision or diplopia Cardiovascular Cardiovascular: Denies chest pain, orthopnea, palpitations or racing heartbeat Respiratory/Chest Respiratory/Chest: Denies cough, dyspnea or orthopnea Gastrointestinal Gastrointestinal: Denies abdominal pain, diarrhea, nausea or vomiting Genitourinary Genitourinary ED: Denies dysuria, hematuria or urinary frequency Neurologic Neurologic: Reports other Details: New onset tingling to left arm beginning yesterday a.m. Tingling to left leg x 2 months ; Denies headache(s) or weakness Hematologic/Lymphatic Hematologic/Lymphatic: Reports systems reviewed and no addt'l complaints, except as documented EXAM <Yanet Sanches RN - Last Filed: 06/29/23 14:57> Physical Exam Const Vital Signs: 06/29/23 12:00 06/29/23 12:05 06/29/23 12:34 Temperature 96.8 F L Temperature Source Temporal Pulse Rate 121 H 112 H Respiratory Rate 18 23 H Blood Pressure 128/83 H 96/73 Blood Pressure Mean 98 80 Pulse Ox 97 98 98 Oxygen Delivery Method Room Air Room Air Room Air 06/29/23 12:48 06/29/23 13:00 06/29/23 14:30 Temperature Temperature Source Pulse Rate 90 90 87 Respiratory Rate 17 17 21 H Blood Pressure 148/64 H 148/64 H 105/72 Blood Pressure Mean 92 92 83 Pulse Ox 94 97 95 Oxygen Delivery Method Room Air Room Air Room Air 06/29/23 14:30 Temperature Temperature Source Pulse Rate 87 Respiratory Rate 21 H Blood Pressure 105/72 Blood Pressure Mean 83 Pulse Ox 95 Oxygen Delivery Method Room Air Positive well nourished and well developed General Appearance ED: well developed and NAD HEENT Reports moist mucous membranes Eyes PERRL Chest Wall inspection of chest normal and palpation of chest normal Resp normal respiratory effort and clear to auscultation bilaterally Cardio regular rate, regular rhythm, S1 normal heart sound and S2 normal heart sound GI normal to inspection, nondistended, normoactive bowel sounds and non-tender Palpation: soft Extremity normal to inspection Neuro oriented x3 and no sensory deficits noted Neuro Narrative: NIH 0 Sensorium / Orientation: alert Motor Exam: strength 5/5 throughout Psych mental status grossly normal Skin no rashes or lesions noted <Dr. Fredrick Recio MD - Last Filed: 06/29/23 14:45> Physical Exam Const Vital Signs: 06/29/23 12:00 06/29/23 12:05 06/29/23 12:34 Temperature 96.8 F L Temperature Source Temporal Pulse Rate 121 H 112 H Respiratory Rate 18 23 H Blood Pressure 128/83 H 96/73 Blood Pressure Mean 98 80 Pulse Ox 97 98 98 Oxygen Delivery Method Room Air Room Air Room Air 06/29/23 12:48 06/29/23 13:00 06/29/23 14:30 Temperature Temperature Source Pulse Rate 90 90 87 Respiratory Rate 17 17 21 H Blood Pressure 148/64 H 148/64 H 105/72 Blood Pressure Mean 92 92 83 Pulse Ox 94 97 95 Oxygen Delivery Method Room Air Room Air Room Air 06/29/23 14:30 Temperature Temperature Source Pulse Rate 87 Respiratory Rate 21 H Blood Pressure 105/72 Blood Pressure Mean 83 Pulse Ox 95 Oxygen Delivery Method Room Air [facility] <Yanet Sanches RN - Last Filed: 06/29/23 14:57> [facility] Narrative Medical decision making narrative: Patient placed on ekg monitor tech. IV line initiated. Labwork obtained to evaluate for leukocytosis, anemia, and electrolyte derangement. EKG obtained to evaluate for cardiac arrhythmia/ischemia. Chest x-ray obtained to evaluate for acute lung pathology, cardiac size, or mediastinal abnormality. CTA of the head and neck with contrast ordered to evaluate for acute pathology of the brain. Medical decision making narrative: I have personally performed a face to face assessment of the patient and have reviewed the JOSE ALEJANDRO Note. I performed a substantive portion of the visit including all aspects of the following. My dela cruz findings include: History is [82-year-old female complaining 2-day history of tingling to her left arm she has had chronic tingling of her left leg. No prior history of stroke or mini stroke. Her previously had a stroke. She denies any neck pain or headache. Otherwise she has not recently been ill.] Exam is [well-appearing 82-year-old female. Vital signs stable afebrile. HEENT exam normal. Pupils round reactive light extra motions are intact. No facial droop. Tongue midline. Normal speech. Neck nontender. Lungs clear. Heart regular rhythm rate about 100 no murmur. Chest wall nontender. Abdomen soft nontender. Moving all 4 extremities. 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 Dorsi plantarflexion intact. No drift to either arm or leg. She has normal sensation to both arms and legs. Subjectively she is tingling but has normal sensation. Normal strength. Normal range of motion. Back nontender. Neurological exam is normal. NIH is 0. Awake, alert and oriented. Answering questions following commands. Normal speech. Normal strength.] Medical Decision Making [82-year-old with left arm tingling. Exam benign. She undergo a stroke workup.] Other additions or changes: [None] 06/29/23 1:08 pm EST - Fredrick Recio History & Record Review Discussion w/independent historian: Patient Lab Data Labs: Laboratory Results - last 24 hr 06/29/23 12:10 WBC 9.1 RBC 4.06 L Hgb 13.0 Hct 36.6 L MCV 90.1 MCH 32.0 MCHC 35.5 RDW Std Deviation 43.2 RDW Coeff of Scot 13.4 Plt Count 385 MPV 8.9 Immature Gran % (Auto) 0.600 Neut % (Auto) 69.6 Lymph % (Auto) 22.7 Sutter % (Auto) 5.5 Eos % (Auto) 0.8 Baso % (Auto) 0.8 Absolute Neuts (auto) 6.3 Absolute Lymphs (auto) 2.06 Nucleated RBC % 0 PT 13.1 INR 1.0 APTT 29.1 Sodium 140 Potassium 4.0 Chloride 108 H Carbon Dioxide 26.0 Anion Gap 6 BUN 9 Creatinine 0.72 Estim Creat Clear Calc 50.73 Est GFR (MDRD) Af Amer 100 Est GFR (MDRD) Non-Af 83 BUN/Creatinine Ratio 12.6 Glucose 117 H Calcium 9.6 Troponin I High Sens 4 Radiography Diagnostic Testing: Clinical Impression(s) from Imaging Studies Head/Neck CTA 06/29/23 12:19 IMPRESSION: Normal CTA Head and neck with contrast. Questionable tiny old lacunar infarct in the anterior cortex of the left temporal lobe. N.B. : The above Results were Read Back by Germain Vicente MD to Dr Hemal MD, and understanding confirmed on 06/29/2023 13:48:59 (ET). Electronically Signed: Germain Vicente MD at 13:49 EST , ADDENDUM: 06/29/23 3472 IMPRESSION: Normal CTA Head and neck with contrast. Questionable tiny old lacunar infarct in the anterior cortex of the left temporal lobe. N.B. : The above Results were Read Back by Germain Vicente MD to Dr Hemal MD, and understanding confirmed on 06/29/2023 13:48:59 (ET). Electronically Signed: Germain Vicente MD at 13:49 EST , Chest X-Ray 06/29/23 12:45 IMPRESSION: Stable elevation of the right hemidiaphragm. No acute abnormality is seen. Electronically Signed: Germain Vicente MD at 13:03 EST , Chest x-ray, portable, single view shows no acute abnormality. Interpreted by myself. Normal cardiac silhouette. Normal mediastinum. Normal lungs. CTA head and neck with no acute abnormality. EKG Initial EKG: Attestation: I personally reviewed and interpreted this EKG as follows: Interpretation: Sinus Rhythm Comments: Sinus rhythm with PVCs. Rate 88. Prior EKG tracings: not available for review Differential Diagnosis Chest pain/SOB: ACS Management Discussion w/another healthcare provider: Other (Dr. Recio, ED provider) Treatment and Re-Evaluation :: Upon reevaluation, patient awake and alert. Reports tingling on left arm has improved but not completely resolved. Continues with tingling to left leg. CBC reveals white blood count normal at 9.1, hemoglobin normal at 13, platelets normal at 385. Coagulation studies show a normal PT of 13.1, normal INR of 1.0, and normal PTT of 29.1. Chemistry shows slightly elevated chloride at 108 and elevated glucose of 117. High-sensitivity troponin negative at 4. Chest x-ray shows no acute process. CTA head and neck also shows no acute process. Patient was able to ambulate with steady gait without the use of assistive devices. Patient to be discharged home with follow-up with primary care provider in 1 week. Patient educated on symptoms of stroke and need to return immediately should those symptoms occur. Plan discussed with patient and patient agreeable. <Dr. Fredrick Recio MD - Last Filed: 06/29/23 14:45> [facility] MDM Narrative Medical decision making narrative: I have personally performed a face to face assessment of the patient and have reviewed the JOSE ALEJANDRO Note. I performed a substantive portion of the visit including all aspects of the following. My dela cruz findings include: History is [82-year-old female complaining 2-day history of tingling to her left arm she has had chronic tingling of her left leg. No prior history of stroke or mini stroke. Her previously had a stroke. She denies any neck pain or headache. Otherwise she has not recently been ill.] Exam is [well-appearing 82-year-old female. Vital signs stable afebrile. HEENT exam normal. Pupils round reactive light extra motions are intact. No facial droop. Tongue midline. Normal speech. Neck nontender. Lungs clear. Heart regular rhythm rate about 100 no murmur. Chest wall nontender. Abdomen soft nontender. Moving all 4 extremities. 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 Dorsi plantarflexion intact. No drift to either arm or leg. She has normal sensation to both arms and legs. Subjectively she is tingling but has normal sensation. Normal strength. Normal range of motion. Back nontender. Neurological exam is normal. NIH is 0. Awake, alert and oriented. Answering questions following commands. Normal speech. Normal strength.] Medical Decision Making [82-year-old with left arm tingling. Exam benign. She undergo a stroke workup.] Other additions or changes: [None] History & Record Review Discussion w/independent historian: Patient Lab Data Attestation: I reviewed the patient's lab results. Lab results narrative: PT/INR PTT normal. Chest x-ray unremarkable. Labs: Laboratory Results - last 24 hr 06/29/23 12:10 WBC 9.1 RBC 4.06 L Hgb 13.0 Hct 36.6 L MCV 90.1 MCH 32.0 MCHC 35.5 RDW Std Deviation 43.2 RDW Coeff of Scot 13.4 Plt Count 385 MPV 8.9 Immature Gran % (Auto) 0.600 Neut % (Auto) 69.6 Lymph % (Auto) 22.7 Sutter % (Auto) 5.5 Eos % (Auto) 0.8 Baso % (Auto) 0.8 Absolute Neuts (auto) 6.3 Absolute Lymphs (auto) 2.06 Nucleated RBC % 0 PT 13.1 INR 1.0 APTT 29.1 Sodium 140 Potassium 4.0 Chloride 108 H Carbon Dioxide 26.0 Anion Gap 6 BUN 9 Creatinine 0.72 Estim Creat Clear Calc 50.73 Est GFR (MDRD) Af Amer 100 Est GFR (MDRD) Non-Af 83 BUN/Creatinine Ratio 12.6 Glucose 117 H Calcium 9.6 Troponin I High Sens 4 Radiography Chest X-Ray - ED: 1 View, Read by ED Physician, Heart, Lungs, Mediastinum, Bony Structures, No Acute Disease and Chronic Changes Diagnostic Testing: Clinical Impression(s) from Imaging Studies Head/Neck CTA 06/29/23 12:19 IMPRESSION: Normal CTA Head and neck with contrast. Questionable tiny old lacunar infarct in the anterior cortex of the left temporal lobe. N.B. : The above Results were Read Back by Germain Vicente MD to Dr Hemal MD, and understanding confirmed on 06/29/2023 13:48:59 (ET). Electronically Signed: Germain Vicente MD at 13:49 EST , ADDENDUM: 06/29/23 1356 IMPRESSION: Normal CTA Head and neck with contrast. Questionable tiny old lacunar infarct in the anterior cortex of the left temporal lobe. N.B. : The above Results were Read Back by Germain Vicente MD to Dr Hemal MD, and understanding confirmed on 06/29/2023 13:48:59 (ET). Electronically Signed: Germain Vicente MD at 13:49 EST , Chest X-Ray 06/29/23 12:45 IMPRESSION: Stable elevation of the right hemidiaphragm. No acute abnormality is seen. Electronically Signed: Germain Vicente MD at 13:03 EST , Chest x-ray, daycare. Mother was concerned portable, single view shows no acute abnormality. Interpreted by myself. Normal cardiac silhouette. Normal mediastinum. Normal lungs. Rhythm Strip Rhythm Strip: Sinus Rhythm Ectopy: PVC(s) EKG Initial EKG: Attestation: I personally reviewed and interpreted this EKG as follows: Interpretation: Sinus Rhythm and No Acute Injury Pattern Comments: Normal sinus rhythm rate 88. PVCs occasionally. No acute signs of TX or ischemia. Discharge Plan Triage Chief Complaint: Numb/Ting ED Provider: Fredrick Recio Dx/Rx/DC Orders Clinical Impression: Tingling in extremities Instructions: ED Paraesthesias Prescriptions: No Action Aspirin, Baby 81 mg PO DAILY multivitamin Tablet 1 tab PO DAILY esomeprazole magnesium [Nexium] 40 MG capsule 40 mg PO BID Qty: 28 0RF sucralfate [Carafate] 1 gram tablet 1 g PO TID Qty: 30 0RF Primary Care Provider: Eleanor Crowley Referrals: Eleanor Crowley MD [Primary Care Provider] - Activity Restrictions/Additional Instructions: Follow-up with Dr. Crowley in 1 week. Return to ER immediately for symptoms of stroke including facial droop, one-sided weakness, difficulty speaking or swallowing. Disposition Disposition: Home, Self Care
[2023-06-29 12:48] LABS: Absolute Lymphocyte Count 2.06 X10^3/uL (0.83-4.51); Absolute Neutrophil Count 6.3 X10^3/uL (2.0-7.7); Basophil# 0.07 X10^3/uL; Basophil% 0.8 % (0-1); Eosinophil# 0.07 X10^3/uL; Eosinophils% 0.8 % (0-5); Hematocrit 36.6 % (37-47); Lymphocyte # 2.06 X10^3/ul (0.83-4.51); Lymphocyte % 22.7 % (19-41); Mean Corpuscular Volume 90.1 fL (81-99); Mean Platelet Vol. 8.9 fl (6.2-12.0); Monocyte% 5.5 % (0-10); NRBC Flagged by Analyzer 0 % (0-5); Neutrophil # 6.33 X10^3/uL (2.7-7.7); Neutrophil % 69.6 % (47-70); POSITIVE COUNT YES; Platelet Count 385 K/mm3 (150-450); RBC Distribution Width CV 13.4 % (11.6-14.6); RBC Distribution Width SD 43.2 fl (35.1-43.9); Red Blood Count 4.06 M/mm3 (4.2-5.4); White Blood Count 9.1 K/mm3 (4.4-11.0)
[2023-06-29 12:57] LABS: Partial Thromboplast Time 29.1 Seconds (24.1-36.2); Prothrombin Time (Protime)PT. 13.1 SECONDS (11.7-14.9)
[2023-06-29 13:07] LABS: Anion Gap 6 (5-15); BUN 9 mg/dL (7-18); BUN/Creat Ratio 12.6 RATIO (10-20); Calcium,Total 9.6 mg/dL (8.5-10.1); Chloride 108 mmol/L (98-107); Creatinine, Serum 0.72 mg/dL (0.55-1.02); EST Glomerular Filtration Rate 83 mL/min (>60); Est Glom Filt Rate - Afr Amer 100 mL/min (>60); Estimated Creatinine Clearance 50.73 ml/min; Glucose 117 mg/dL (74-106); Sodium Level 140 mmol/L (136-145); Troponin-I HS 4 pg/mL (3.0-54.0)
[2023-06-29 14:03] LABS: Mean Corp Hgb Conc 35.5 g/dL (32-36)
--- NOTE | 2023-06-29 15:10 | ED.RN ---
AMBULATED W/O ASSISTANCE, STEADY AND NO DIFFICULTIES
--- OUTSIDE RECORDS SUMMARY | 2023-06-29 19:09 | XMS RPT_ITS | CCD ---
Author Name Unknown Address [facility] [address] [place] [address] Organization [facility] Care Team Providers Care Carbide Operator Name Role Phone SILVIA SHAKIR S Attending Unavailable JOLLIFF, SHAKIR S Consulting Unavailable JOLLIFF, SHAKIR S Primary Care Unavailable JOLLIFF, SHAKIR S Admitting Unavailable PROVIDER, UNKNOWN Consulting Unavailable Results Test Name Value Interpretation Reference Range Facil ity Encounters Encounter Date Encounter Type Care Provider Facility Start: 07-16-2021 End: 07-16-2021 ambulatory SH[facility]IR [facility] Payers Date Payer Category Payer Unknown [id number] Medicare [id number] Unknown [id number] Summary Purpose Family History No Family History Records Found Advance Directives No Advanced Directives Records Found Additional Source Comments INFORMATION SOURCE (unrecogn ized section and content) FOR RECORDS PERTAINING TO PATIENTS WHO ARE OR HAVE BEEN ENROLLED IN A CHEMICAL DEPENDENCY/SUBSTANCEABUSE PROGRAM, SOME INFORMATION MAY BE OMITTED. This clinical summary was aggregated from multiple sources. Caution should be exercised in using it in the provision of clinical care. This summary normalizes information from multiple sources, and as a consequence, information in this document may materially change the coding, format and clinical context of patient data. In addition, data may be omitted in some cases. CLINICAL DECISIONS SHOULD BE BASED ON THE PRIMARY CLINICAL RECORDS. [employer] provides no warranty or guarantee of the accuracy or completeness of information in this document.
== END 2023-06-29 15:09 | disposition home or self-care (01) ==
PROVIDERS: Emergency Provider Emergency Medicine; PCP Family Medicine; Visit Provider Emergency Medicine
DX: R20.2 Paresthesia of skin (principal); R20.0 Anesthesia of skin; F41.9 Anxiety disorder, unspecified; K21.9 Gastro-esophageal reflux disease without esophagitis; Z79.82 Long term (current) use of aspirin; Z79.899 Other long term (current) drug therapy
CPT/HCPCS: 70496; 70498; 71045; 80048; 84484; 85025; 85610; 85730; 93005; 99283; Q9967; A4216

== ENCOUNTER → 2023-07-07 | Outpatient (CLI) | payer MEDICARE, OTHER, SELFPAY ==
--- OUTSIDE RECORDS SUMMARY | 2023-07-07 15:38 | XMS RPT_ITS | CCD ---
Author Name Unknown Address [facility] [address] [place] [address] Organization [facility] Care Team Providers Care Apprentice Lineman Third Step Name Role Phone SILVIA SHAKIR S Attending Unavailable JOLLIFF, SHAKIR S Consulting Unavailable JOLLIFF, SHAKIR S Primary Care Unavailable JOLLIFF, SHAKIR S Admitting Unavailable PROVIDER, UNKNOWN Consulting Unavailable Results Test Name Value Interpretation Reference Range Facil ity Encounters Encounter Date Encounter Type Care Provider Facility Start: 07-16-2021 End: 07-16-2021 ambulatory SHAKIR [facility] Payers Date Payer Category Payer Unknown [id number] Medicare [id number] Unknown [id number] Summary Purpose Family History No Family History [...] BE BASED ON THE PRIMARY CLINICAL RECORDS. [employer] provides no warranty or guarantee of the accuracy or completeness of information in this document.
[2023-07-07 16:23] LABS: Thyroid Stim Hormone (TSH) 5.06 uIU/mL (0.358-3.74)
[2023-07-07 17:18] LABS: Vitamin B12 272 pg/mL (211-911)
== END | disposition home or self-care (01) ==
LOC: MFPLAB 13:53
PROVIDERS: PCP Family Medicine; Visit Provider Family Medicine
DX: R20.2 Paresthesia of skin (principal)
CPT/HCPCS: 36415; 82607; 82746; 84443

== ENCOUNTER → 2023-11-24 | Outpatient (CLI) | payer MEDICARE, OTHER, SELFPAY ==
[2023-11-24 18:08] LABS: Thyroid Stim Hormone (TSH) 1.13 uIU/mL (0.358-3.74)
== END | disposition home or self-care (01) ==
LOC: MFPLAB 13:53
PROVIDERS: PCP Family Medicine; Visit Provider Family Medicine
DX: E03.9 Hypothyroidism, unspecified (principal)
CPT/HCPCS: 36415; 84443

== ENCOUNTER → 2024-03-15 | Outpatient (CLI) | payer MEDICARE, OTHER, SELFPAY | END | disposition home or self-care (01) | LOC: MTRAD 14:55 | PROVIDERS: PCP Family Medicine | DX: R05.9 Cough, unspecified (principal) | CPT/HCPCS: 71046 ==

== ENCOUNTER 2024-05-17 11:45 | Emergency (ER) | payer MEDICARE, OTHER, SELFPAY ==
[2024-05-17 11:48] VITALS: BP 128/70; PULSE 92; RESP 16; TEMP 36.4; O2SAT 95; BMI 28.0
--- NOTE | 2024-05-17 13:15 | CT_ITS ---
INDICATION: paresthesia EXAMINATION: CT BRAIN - CT Head or Brain W/O Contrast Injection TECHNIQUE: Multiple axial images were obtained of the head without intravenous contrast. The protocol utilizes one or more of the following dose reduction techniques: automated exposure control, adjustment of mA and/or kV according to patient size,and/or use of iterative reconstruction technique. IV Contrast dosage and agent: None. RADIATION DOSAGE (If Supplied By Facility): CTDIvol = ( 47.06 ) mGy, DLP = ( 890.33 ) mGycm COMPARISON: No relevant prior comparison study available FINDINGS: BRAIN PARENCHYMA: No intra- or extra-axial hemorrhage. 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 No intracranial mass or mass effect. There is preservation of the hernandez/white matter interface. Posterior fossa structures are unremarkable. Atherosclerotic calcifications of the cavernous internal carotid arteries. CSF SPACES: Appropriate for age. No hydrocephalus. Basal cisterns are patent. CALVARIUM, SKULL BASE, PARANASAL SINUSES AND MASTOID AIR CELLS: Clear. No discrete lytic or blastic abnormalities. ORBITS: Previous right cataract surgery. CT/Brain/Head without Contrast IMPRESSION: 1. No acute intracranial process. 2. If symptoms persist, MRI of the brain is recommended. Electronically Signed: Ramírez Keene MD at 14:34 EST ,
--- NOTE | 2024-05-17 13:21 | EDS_ITS ---
HPI <AMMON Ybarra - Last Filed: 05/17/24 15:08> History of Present Illness Chief Complaint: Numb/Ting Narrative Narrative: 83-year-old female with past medical history of GERD, hypothyroidism presents with acute on chronic left arm and left leg tingling. She has had these symptoms for at least a year with no cause found. She states last evening her entire arm and entire leg started to feel more tingly and heavy. She does not have difficulty moving it. She has no visual or speech changes. She is able to walk like normal. She denies headache or nausea or vomiting. This morning she did have chest pain from about 8:30 AM to 9:30 AM which resolved after Pepto- Bismol. PFSH <AMMON Ybarra - Last Filed: 05/17/24 15:08> [facility] Medical History Anxiety GERD (gastroesophageal reflux disease) Home Medications ?Medication ?Instructions ?Recorded ?Last Taken ?Type Aspirin, Baby 81 mg PO DAILY 09/05/14 09/05/14 History multivitamin 1 tab PO DAILY 01/19/21 Unknown History esomeprazole magnesium 40 mg 40 mg PO BID #28 caps 08/18/22 Unknown Rx capsule,delayed release (Nexium) sucralfate 1 gram tablet (Carafate) 1 g PO TID #30 tabs 06/15/23 Unknown Rx Allergy/AdvReac Type Severity Reaction Status Date / Time No Known Allergies Allergy Verified 05/17/24 11:52 Social History (Updated 05/17/24 @ 13:30 by Piedad Olson) household members: [facility] Smoking Status: Never smoker ROS <AMMON Ybarra - Last Filed: 05/17/24 15:08> ROS ED ROS Narrative Constitutional: Negative for fever, chills. Eyes: Negative for visual change. CVS: Positive for chest pain. Negative for palpitations, syncope. Respiratory: Negative for shortness of breath, cough. GI: Negative for abdominal pain, nausea, vomiting, diarrhea. : Negative for dysuria. Neuro: Negative for headache. EXAM <AMMON Ybarra - Last Filed: 05/17/24 15:08> Physical Exam Narrative Exam Narrative: CONST: Patient sitting in no acute distress. EYES: Normal inspection. ENT: Normal inspection, moist mucous membranes. NECK: Normal inspection. RESP: No respiratory distress, CTAB. CVS: Regular rate and rhythm, no murmur, no gallop. ABD: Soft and nontender, no guarding or rebound, nondistended. SKIN: Color normal, no rash, warm, dry, intact. EXTREMITIES: Normal appearance, full range of motion of upper and lower extremities, 5/5 strength, reports subjective tingling but has normal sensation to light touch, 2+ radial and DP pulses. No upper or lower extremity drift, normal [id number] and [id number], no dysarthria or aphasia, no extinction. NIH is 0. NEURO: Alert and answering questions appropriately. PSYCH: Normal affect. Const Vital Signs: 05/17/24 11:48 05/17/24 13:48 05/17/24 15:07 Temperature 97.6 F L 97.5 F L Temperature Source Temporal Pulse Rate 92 80 62 Respiratory Rate 16 16 15 Blood Pressure 128/70 H 135/51 H 124/77 H Blood Pressure Mean 89 79 92 Pulse Ox 95 96 97 Oxygen Delivery Method Room Air <Dr. Joseph Carrero DO - Last Filed: 05/17/24 21:48> Physical Exam Const Vital Signs: 05/17/24 11:48 05/17/24 13:48 05/17/24 15:07 Temperature 97.6 F L 97.5 F L Temperature Source Temporal Pulse Rate 92 80 62 Respiratory Rate 16 16 15 Blood Pressure 128/70 H 135/51 H 124/77 H Blood Pressure Mean 89 79 92 Pulse Ox 95 96 97 Oxygen Delivery Method Room Air [facility] <AMMON Ybarra - Last Filed: 05/17/24 15:08> [facility] Narrative Medical decision making narrative: 83-year-old female was evaluated for acute on chronic left arm and left leg paresthesias. She has had this for months but it feels worse over the last 2 days. She also had a brief episode of chest pain this morning. She appears well and nontoxic, hemodynamically stable. She has a completely normal neurological exam with NIH of 0. Blood work and urinalysis overall unremarkable. EKG nonischemic and troponin is 6. CT brain shows no acute process. Since these paresthesias have been ongoing for 6+ months I do not feel she requires admission as I do not suspect stroke. I recommended outpatient follow-up with her PCP and neurology and she was discharged in stable condition. Lab Data Attestation: I reviewed the patient's lab results. Labs: Laboratory Results - last 24 hr 05/17/24 13:27 WBC 9.2 RBC 4.22 Hgb 13.6 Hct 37.8 MCV 89.6 MCH 32.2 H MCHC 36.0 RDW Std Deviation 43.9 RDW Coeff of Scot 13.8 Plt Count 355 MPV 8.9 Immature Gran % (Auto) 0.500 Neut % (Auto) 75.5 H Lymph % (Auto) 16.2 L Huron % (Auto) 5.7 Eos % (Auto) 1.1 Baso % (Auto) 1.0 Absolute Neuts (auto) 6.9 Absolute Lymphs (auto) 1.48 Nucleated RBC % 0 Sodium 140 Potassium 3.8 Chloride 108 H Carbon Dioxide 28.0 Anion Gap 5 BUN 12 Creatinine 0.65 Estim Creat Clear Calc 48.64 Est GFR (MDRD) Af Amer 113 Est GFR (MDRD) Non-Af 93 BUN/Creatinine Ratio 18.6 Glucose 102 Calcium 9.3 Troponin I High Sens 6 Urine Color Yellow Urine Clarity Clear Urine pH 6.0 Ur Specific Rumely 1.005 Urine Protein Negative Urine Glucose (UA) Normal Urine Ketones Negative Urine Occult Blood 10 H Urine Nitrite Negative Urine Bilirubin Negative Urine Urobilinogen Normal Ur Leukocyte Esterase Negative Urine RBC 0 SEEN Urine WBC 0 SEEN Ur Squamous Epith Cells 0 SEEN Urine Bacteria 0 SEEN Urine Mucus 0 SEEN Radiography Diagnostic Testing: Clinical Impression(s) from Imaging Studies Brain CT 05/17/24 13:15 IMPRESSION: 1. No acute intracranial process. 2. If symptoms persist, MRI of the brain is recommended. Electronically Signed: Ramírez Keene MD at 14:34 EST , Chest X-Ray 05/17/24 13:55 IMPRESSION: No radiographic evidence of acute cardiopulmonary disease. Electronically Signed: Ramírez Keene MD at 14:30 EST , ED attending interpretation of 1-view chest x-ray shows normal heart size, no acute infiltrate. EKG Initial EKG: Attestation: I personally reviewed and interpreted this EKG as follows: Interpretation: Sinus Rhythm and No Acute Injury Pattern Comments: Normal sinus rhythm at [address] changes, no STEMI <Dr. Joseph Carrero, DO - Last Filed: 05/17/24 21:48> [facility] Lab Data Labs: Laboratory Results - last 24 hr 05/17/24 13:27 WBC 9.2 RBC 4.22 Hgb 13.6 Hct 37.8 MCV 89.6 MCH 32.2 H MCHC 36.0 RDW Std Deviation 43.9 RDW Coeff of Scot 13.8 Plt Count 355 MPV 8.9 Immature Gran % (Auto) 0.500 Neut % (Auto) 75.5 H Lymph % (Auto) 16.2 L Huron % (Auto) 5.7 Eos % (Auto) 1.1 Baso % (Auto) 1.0 Absolute Neuts (auto) 6.9 Absolute Lymphs (auto) 1.48 Nucleated RBC % 0 Sodium 140 Potassium 3.8 Chloride 108 H Carbon Dioxide 28.0 Anion Gap 5 BUN 12 Creatinine 0.65 Estim Creat Clear Calc 48.64 Est GFR (MDRD) Af Amer 113 Est GFR (MDRD) Non-Af 93 BUN/Creatinine Ratio 18.6 Glucose 102 Calcium 9.3 Troponin I High Sens 6 Urine Color Yellow Urine Clarity Clear Urine pH 6.0 Ur Specific Rumely 1.005 Urine Protein Negative Urine Glucose (UA) Normal Urine Ketones Negative Urine Occult Blood 10 H Urine Nitrite Negative Urine Bilirubin Negative Urine Urobilinogen Normal Ur Leukocyte Esterase Negative Urine RBC 0 SEEN Urine WBC 0 SEEN Ur Squamous Epith Cells 0 SEEN Urine Bacteria 0 SEEN Urine Mucus 0 SEEN Radiography Diagnostic Testing: Clinical Impression(s) from Imaging Studies Brain CT 05/17/24 13:15 IMPRESSION: 1. No acute intracranial process. 2. If symptoms persist, MRI of the brain is recommended. Electronically Signed: Ramírez Keene MD at 14:34 EST , Chest X-Ray 05/17/24 13:55 IMPRESSION: No radiographic evidence of acute cardiopulmonary disease. Electronically Signed: Ramírez Keene MD at 14:30 EST , Treatment and Re-Evaluation :: I have personally performed a face to face assessment of the patient and have reviewed the JOSE ALEJANDRO Note. I performed a substantive portion of the visit including all aspects of the following. My dela cruz findings include: History: Patient presents with some tingling that became worse today. Patient states she has had numbness and tingling in her upper and lower extremities for the past couple weeks. Patient states it feels stronger today. Patient states it is worse on the left but it also involves the right upper and lower extremities. Patient denies any weakness. Patient does admit to a mild headache. Patient denies any chest pain or shortness of breath. Patient denies any nausea or vomiting. Exam: Vital signs are stable. Patient is afebrile. Patient is in no acute distress. Oral mucosa is pink and moist. Neck is supple. Trachea is midline. There is no JVD. Heart was regular rate and rhythm. Lungs are clear and equal bilaterally. Abdomen is soft and nontender. Cranial nerves II through XII are intact. Strength is 5/5 bilaterally in the upper and lower extremities. There are no sensory deficits noted. Patient has an NIH score of 0. Medical Decision Making: Differential diagnosis includes electrolyte abnormality, pneumonia, stroke, cardiac dysrhythmia, cardiac ischemia, urinary tract infection, and anxiety. CT scan of the brain will be obtained to assess for intracranial bleeding and stroke. Chest x-ray will be obtained to assess for pneumonia and just of heart failure. EKG will be obtained to assess for cardiac dysrhythmia and cardiac ischemia. CBC will be obtained to assess for leukocytosis and anemia. Basic metabolic profile will be obtained to assess for electrolyte abnormality and renal function. High-sensitivity troponin will be obtained to assess for cardiac ischemia. Urinalysis will be obtained to assess for urinary tract infection and hematuria. EKG was obtained. On my independent interpretation, shows normal sinus rhythm with a rate of 92. There are nonspecific ST-T wave changes. CT scan of the brain was obtained. There is no acute intracranial abnormality. This was interpreted by the radiologist and was also independently reviewed by myself. Portable 1 view chest x-ray was obtained. On my independent interpretation, lung schulte are clear. There is normal cardiac silhouette. Bony thorax is norm al. There is no acute process noted. Radiologist also interpreted the x-ray and agrees. CBC was reviewed and was within normal limits. Basic metabolic profile was reviewed and was within normal limits. High-sensitivity troponin was reviewed and was normal at 6. Urinalysis was reviewed. There is no evidence for urinary tract infection or hematuria. Patient was advised of her findings. Patient was instructed to follow-up with her primary care physician in 5 to 7 days. Patient was instructed to return if worse in any way. She understood and was agreeable with this plan. All questions were answered. Discharge Plan Triage Chief Complaint: Numb/Ting ED Midlevel Provider: Yisel Romero ED Provider: Joseph Carrero Dx/Rx/DC Orders Clinical Impression: Paresthesia of left arm and leg, Chest pain Instructions: ED Paraesthesias Prescriptions: No Action Aspirin, Baby 81 mg PO DAILY multivitamin Tablet 1 tab PO DAILY esomeprazole magnesium [Nexium] 40 MG capsule 40 mg PO BID Qty: 28 0RF sucralfate [Carafate] 1 gram tablet 1 g PO TID Qty: 30 0RF Primary Care Provider: Eleanor Crowley Referrals: Eleanor Crowley MD [Primary Care Provider] - Gregorio Gallegos MD [Non-Staff -Ordering Privileges] - Activity Restrictions/Additional Instructions: No clear cause of your numbness and tingling was found. Since this has been an ongoing problem I recommend follow-up with your primary care doctor and a neurologist. Print Language: Luxembourgish Disposition Disposition: Home, Self Care Discharge Date/Time: 05/17/24 15:08
--- NOTE | 2024-05-17 13:21 | EKG12_ITS ---
Test Reason : CP Blood Pressure : */* mmHG Vent. Rate : 92 BPM Atrial Rate : 92 BPM P-R Int : 142 ms QRS Dur : 72 ms QT Int : 348 ms P-R-T Axes : 42 -2 44 degrees QTcB Int : 430 ms Normal sinus rhythm Nonspecific ST and T wave abnormality Abnormal ECG Confirmed by DIANELYS GUTIERREZ, LUCA ([id number]), legal editor ADA MONTAGUE ([id number]) on 05/20/2024 8:00:49 AM Referred By: BB/RYAN Confirmed By: LUCA IVORY MD
[2024-05-17 13:45] LABS: Bacteria 0 SEEN /hpf (None Seen); Mucous, Urine 0 SEEN /hpf (<or=2+); Red Blood Cells-Urine 0 SEEN /hpf (0-5); Squamous Epithelial Cells - UA 0 SEEN /hpf (5-10); White Blood Cells 0 SEEN /hpf (0-5)
[2024-05-17 13:48] VITALS: BP 135/51; PULSE 80; RESP 16; O2SAT 96
[2024-05-17 13:51] LABS: Absolute Lymphocyte Count 1.48 X10^3/uL (0.83-4.51); Absolute Neutrophil Count 6.9 X10^3/uL (2.0-7.7); Basophil# 0.09 X10^3/uL; Eosinophils% 1.1 % (0-5); Hematocrit 37.8 % (37-47); Hemoglobin 13.6 g/dL (12.0-15.0); Lymphocyte # 1.48 X10^3/ul (0.83-4.51); Lymphocyte % 16.2 % (19-41); Mean Corpuscular Hgb 32.2 pg (27.0-32.0); Mean Corpuscular Volume 89.6 fL (81-99); Mean Platelet Vol. 8.9 fl (6.2-12.0); Monocyte# 0.52 X10^3/uL; Monocyte% 5.7 % (0-10); NRBC Flagged by Analyzer 0 % (0-5); Neutrophil # 6.91 X10^3/uL (2.7-7.7); Neutrophil % 75.5 % (47-70); Platelet Count 355 K/mm3 (150-450); RBC Distribution Width CV 13.8 % (11.6-14.6); RBC Distribution Width SD 43.9 fl (35.1-43.9); Red Blood Count 4.22 M/mm3 (4.2-5.4); White Blood Count 9.2 K/mm3 (4.4-11.0)
--- NOTE | 2024-05-17 13:55 | RAD_ITS ---
INDICATION: chest pain EXAMINATION/TECHNIQUE: X-RAY - XR Chest 1 View COMPARISON: Prior study dated: 03/15/2024 FINDINGS: LINES/DEVICES: None. LUNGS: [Elevation of the right hemidiaphragm. No focal infiltrate is seen. No evidence of pleural effusions. MEDIASTINUM AND CARDIOVASCULAR STRUCTURES: Cardiac silhouette not enlarged. Central airways and mediastinal contour are unremarkable. BONES AND SOFT TISSUES: Unremarkable. RAD/Chest 1 View (Portable) IMPRESSION: No radiographic evidence of acute cardiopulmonary disease. Electronically Signed: Ramírez Keene MD at 14:30 EST ,
[2024-05-17 13:59] LABS: Color, Urine Yellow (Yellow); Glucose, Dipstick Normal (Normal); Ketone-Dipstick Negative (Negative); Leukocyte Esterase-Dipstick Negative /ul (Negative); Nitrite-Dipstick Negative (Negative); Occult Blood-Urine 10 /ul (Negative); Protein-Dipstick Negative (Negative); Specific Gravity, Urine 1.005 (1.002-1.030); Urine Bilirubin Dipstick Negative (Negative); Urine Clarity Clear (Clear); Urine Urobilinogen Normal (Normal)
[2024-05-17 14:11] LABS: Anion Gap 5 (5-15); BUN 12 mg/dL (7-18); BUN/Creat Ratio 18.6 RATIO (10-20); Calcium,Total 9.3 mg/dL (8.5-10.1); Chloride 108 mmol/L (98-107); Creatinine, Serum 0.65 mg/dL (0.55-1.02); EST Glomerular Filtration Rate 93 mL/min (>60); Est Glom Filt Rate - Afr Amer 113 mL/min (>60); Estimated Creatinine Clearance 48.64 ml/min; Glucose 102 mg/dL (74-106); Potassium 3.8 mmol/L (3.5-5.1); Sodium Level 140 mmol/L (136-145); Troponin-I HS 6 pg/mL (3.0-54.0)
[2024-05-17 15:07] VITALS: BP 124/77; PULSE 62; RESP 15; TEMP 36.4; O2SAT 97
== END 2024-05-17 15:08 | disposition home or self-care (01) ==
PROVIDERS: Physician Assistant; Emergency Provider Emergency Medicine; PCP Family Medicine; Visit Provider Emergency Medicine
DX: R20.2 Paresthesia of skin (principal); R07.9 Chest pain, unspecified
CPT/HCPCS: 70450; 71045; 80048; 81001; 84484; 85025; 93005; 99283; A4216

== ENCOUNTER → 2024-07-02 | Outpatient (CLI) | payer MEDICARE, OTHER, SELFPAY ==
[2024-07-02 10:58] LABS: Vitamin B12 310 pg/mL (211-911)
[2024-07-02 11:29] LABS: CRP 6.19 mg/L (0.0-3.0)
[2024-07-03 14:08] LABS: ANTINUCLEAR ANTIBODIES DIRECT Positive (Negative); Anti-Centromere B Ab <0.2 AI (0.0-0.9); Anti-Chromatin <0.2 AI (0.0-0.9); Anti-Jo <0.2 AI (0.0-0.9); Anti-Scleroderma-70 AB <0.2 AI (0.0-0.9); Anti-dsDNA Ab <1 IU/mL (0-9); RNP Ab <0.2 AI (0.0-0.9); SJOGREN'S Anti-SS-A test 1.4 AI (0.0-0.9); SJOGREN'S Anti-SS-B test < 0.2 AI (0.0-0.9); Smith Ab <0.2 AI (0.0-0.9)
[2024-07-04 15:08] LABS: Albumin 3.5 g/dL (2.9-4.4); Alpha-1-Globulins 0.3 g/dL (0.0-0.4); Alpha-2-Globulins 1.1 g/dL (0.4-1.0); Gamma Globulin 1.3 g/dL (0.4-1.8); Immunoglobulin A 196 mg/dL (64-422); Immunoglobulin G 1347 mg/dL (586-1602); Immunoglobulin M 105 mg/dL (26-217); PROEL- TOTAL PROTEIN 7.2 g/dL (6.0-8.5)
== END | disposition home or self-care (01) ==
LOC: MTLAB 09:15
PROVIDERS: PCP Family Medicine; Referring Provider Psychiatry & Neurology Neurology; Visit Provider Psychiatry & Neurology Neurology
DX: R25.1 Tremor, unspecified (principal); R20.2 Paresthesia of skin; G62.9 Polyneuropathy, unspecified
CPT/HCPCS: 36415; 82607; 82746; 82784; 84165; 84443; 86038; 86140; 86225; 86235; 86334

== ENCOUNTER → 2024-10-02 | Outpatient (CLI) | payer MEDICARE, OTHER, SELFPAY ==
--- NOTE | 2024-10-02 14:23 | NEURO ---
NCS and/or EMG Patient Report Ordering Doctor: Ace Singleton DATE OF SERVICE: 10/02/24 Erin presents with complaints of tingling in the lower legs and numbness in the forearms. She reports numbness in both hands. Electrodiagnostic findings: Right median motor nerve demonstrates normal distal latency amplitude and conduction velocity. Right ulnar motor responses within normal limits, including conduction across the elbow. Right peroneal motor nerve demonstrates normal distal latency, amplitude and conduction velocity. Right tibial motor response is within normal limits. Normal right tibial, right peroneal, right median and right ulnar F?waves. H?reflexes normal bilaterally. Sensory responses are within normal limits. Needle EMG testing was performed the right upper and right lower limb. All muscles tested showed no evidence of denervation with normal motor unit action potentials. Electrodiagnostic impression: This is a normal electrodiagnostic study of the lower limbs. There is no electrodiagnostic evidence for peripheral polyneuropathy. There is no electrodiagnostic evidence for lumbosacral or cervical radiculopathy. Multi Select Codes Neurology Neurology Interp Codes: 77328-68 Musc test done w/n test comp (interp) (2) and 70993-66 Nrv cndj test 13/> studies (interp)
== END | disposition home or self-care (01) ==
LOC: PSN 12:07
PROVIDERS: PCP Family Medicine; Referring Provider Psychiatry & Neurology Neurology; Visit Provider Psychiatry & Neurology Neurology
DX: R20.2 Paresthesia of skin (principal); R76.8 Other specified abnormal immunological findings in serum; I73.00 Raynaud's syndrome without gangrene
CPT/HCPCS: 95886; 95912

== ENCOUNTER → 2025-04-24 | Outpatient (CLI) | payer MEDICARE, OTHER, SELFPAY ==
--- NOTE | 2025-04-24 10:45 | RAD_ITS ---
PROCEDURE: ABD INC DECUB AND/OR ERECT 04/24/2025 REASON FOR EXAM: ABDOMINAL PAIN TECHNIQUE: Procedure Code: RADABDMV Modality: DX Procedure: ABD INC DECUB AND/OR ERECT COMPARISON: None FINDINGS: There is a nonobstructive bowel gas pattern. There is a moderate stool burden. There are no abnormal soft tissue calcifications or radiopaque foreign bodies. There is levoscoliosis of the thoracolumbar spine. RAD/Abd Inc Decub and/or Erect IMPRESSION: As per findings. Reading Location: [place] [id number]
[2025-04-24 12:58] LABS: AST(SGOT) 19 U/L (<=31); Alanine Aminotransfer ALT/SGPT 12 U/L (<=34); Albumin, Serum 4.0 g/dL (3.4-4.8); Alkaline Phosphatase 80 U/L (35-104); Anion Gap 11 (5-15); BUN 9 mg/dL (4-19); BUN/Creat Ratio 14.5 RATIO (10-20); Calcium,Total 9.5 mg/dL (7.6-11.0); Carbon Dioxide 25.8 mmol/L (21.0-32.0); Chloride 101 mmol/L (98-108); Globulin 3.5 g/dL (2.2-4.2); Glucose 114 mg/dL (70-99); Potassium 4.1 mmol/L (3.3-5.1)
[2025-04-24 13:00] LABS: Hematocrit 41.6 % (37-47); Hemoglobin 14.0 g/dL (12.0-15.0); Immature Granulocytes Count 0.070 X10^3/uL (0.0-0.0); Mean Corp Hgb Conc 33.7 g/dL (32-36); Mean Corpuscular Volume 86.3 fL (81-99); Mean Platelet Vol. 8.9 fl (6.2-12.0); NRBC Flagged by Analyzer 0 % (0-5); Platelet Count 419 K/mm3 (150-450); RBC Distribution Width CV 13.7 % (11.6-14.6); RBC Distribution Width SD 43.3 fl (35.1-43.9); Red Blood Count 4.82 M/mm3 (4.2-5.4); White Blood Count 9.7 K/mm3 (4.4-11.0)
== END | disposition home or self-care (01) ==
LOC: MTLAB 10:45
PROVIDERS: PCP Family Medicine; Referring Provider Family Medicine; Visit Provider Family Medicine
DX: R10.9 Unspecified abdominal pain (principal); E03.9 Hypothyroidism, unspecified
CPT/HCPCS: 36415; 74019; 80053; 84439; 84443; 85025; 85652

== ENCOUNTER 2025-05-06 16:57 | Emergency (ER) | payer MEDICARE, OTHER, SELFPAY ==
[2025-05-06] VITALS (9 sets, daily range): BP systolic 105–148; BP diastolic 56–91; PULSE 97–116; RESP 17–24; TEMP 35.9–37; O2SAT 95–100; BMI 27.1
--- NOTE | 2025-05-06 17:05 | EKG12_ITS ---
Test Reason : cp Blood Pressure : */* mmHG Vent. Rate : 116 BPM Atrial Rate : 116 BPM P-R Int : 160 ms QRS Dur : 70 ms QT Int : 320 ms P-R-T Axes : 63 8 71 degrees QTcB Int : 444 ms Sinus tachycardia Otherwise normal ECG Confirmed by Jourdan Clifton ([id number]), editor & co founder ADA MONTAGUE ([id number]) on 05/09/2025 8:15:10 AM Referred By: Ru/tb Confirmed By: Jourdan Clifton
--- NOTE | 2025-05-06 17:12 | ED.VIS.CHEST ---
HPI History of Present Illness Chief Complaint: Chest Pain Narrative Narrative: Patient is 84-year-old female with past medical history of GERD who presented to the emergency department chief complaint of chest pain. States that her and her family members went to [place] yesterday for a light show and looking at [employer] lights and notes that she developed chest pain during this episode she thought this was indigestion. She states that her pain has been going on since yesterday has been fairly constant she states that it slightly worsens with exertion. Patient denies any history of blood clots. Patient denies any sick contacts. [facility] Medical History GERD (gastroesophageal reflux disease) Anxiety Home Medications ?Medication ?Instructions ?Recorded ?Last Taken ?Type Aspirin, Baby 81 mg PO DAILY 09/05/14 09/05/14 History multivitamin 1 tab PO DAILY 01/19/21 Unknown History levothyroxine 100 mcg tablet 100 mcg PO QDAY 07/02/24 Unknown History oxybutynin chloride 10 mg 10 mg PO QDAY 07/02/24 Unknown History tablet,extended release 24 hr Allergy/AdvReac Type Severity Reaction Status Date / Time No Known Allergies Allergy Verified 05/06/25 16:59 Family History Father , 86 Colon cancer Mother , 92 Breast cancer Social History household members: [facility] current occupational status: retired pets and animals: No Smoking Status: Never smoker alcohol intake: current details: occasional wine cooler caffeine: Yes Type: coffee Number of servings: 2 do you feel safe at home: Yes ROS ROS ED ROS Narrative Constitutional: Denies any fevers, chills, headaches Eyes: Denies double vision Cardiovascular: Complains of chest pain as noted above as well as palpitations Respiratory: Denies coughing wheezing shortness of breath Abdomen: Denies abdominal pain nausea vomit diarrhea : Denies urinary symptoms Neurological: Denies numbness, tingling, weakness Musculoskeletal: Complains of back pain as noted above Skin: Denies any rashes or lesions EXAM Physical Exam Narrative Exam Narrative: General: Patient was lying in bed rest comfortably did not appear to be acute distress Head: Atraumatic, normocephalic Eyes: PERRL bilaterally, EOMI bilaterally, no conjunctival injection noted Neck: Soft, supple, trachea midline Cardiovascular: Patient tachycardic with a regular rhythm Respiratory: Clear to auscultation bilaterally Abdomen: Soft, nondistended, no tenderness to palpation Extremities: Radial pulses +2/4 in the bilateral extremities, +5/5 strength in the bilateral upper and lower extremities Neurological: Patient is following commands that she was at [facility] years 2024 Skin: Warm, dry, intact no rashes or lesions noted Const Vital Signs: 05/06/25 16:57 05/06/25 17:02 05/06/25 17:21 Temperature 96.7 F L Temperature Source Temporal Pulse Rate 116 H 111 H Respiratory Rate 24 H Respiratory Effort Normal Blood Pressure 148/59 H 135/62 H Blood Pressure Mean 88 Pulse Ox 100 Oxygen Delivery Method Room Air 05/06/25 17:45 05/06/25 17:55 05/06/25 18:05 Temperature Temperature Source Pulse Rate 107 H 111 H 106 H Respiratory Rate 24 H Respiratory Effort Blood Pressure 129/63 H 105/91 H 125/57 H Blood Pressure Mean 79 Pulse Ox 95 Oxygen Delivery Method Room Air 05/06/25 19:06 Temperature Temperature Source Pulse Rate 97 Respiratory Rate 20 H Respiratory Effort Blood Pressure 111/56 L Blood Pressure Mean 74 Pulse Ox 97 Oxygen Delivery Method Room Air MDM MDM MDM Narrative Medical decision making narrative: Patient is a 84-year-old female who presented to the emergency department chief complaint chest pain rating to her back, shortness of breath. On the differential diagnose includes but not limited to pulmonary embolism, ACS, electrolyte abnormality. Once the workup is obtained reviewed she will be reevaluated. Patient be given aspirin 3 and 25 mg as well as sublingual nitro. Patient's CBC reviewed and showed a leukocytosis of 14,000, hemoglobin 12.8, plate count was noted be 392. Patient's INR normal at 1, PT of 13.9. Patient odium normal 140, Tessman normal at 3.6, creatinine normal 0.70. Patient's troponin was less than 6 with a delta troponin of 10, EKG reviewed showed sinus tachycardia with a rate of 116 bpm parable 160. Patient proBNP normal at 86 TSH normal at 1.67 and free T4 and T3 normal at 1.40 and 2.6 respectively. Patient CTA of her chest reviewed and showed no evidence of PE mild pulmonary edema/CHF no pleural effusion or pneumothorax noted. Patient states that her pain did improve after nitro however was still lingering around therefore morphine was given. Patient states that her pain is tolerable now. Patient did ambulate here and had no hypoxia no tachycardia. Discussed case with on-call finishing range feeder Dr. Clifton who states that the patient can go home and follow-up with them in the outpatient setting. I discussed this with the patient which she is agreeable I also offered her admission for further cardiac workup and stress testing in the hospital however she states that she would prefer to go home and follow-up in the outpatient setting. Will schedule her a outpatient stress from the emergency department. She was advised to return with worsening symptoms or concerns. All question concerns answered she is discharged home in stable condition Lab Data Labs: Laboratory Results - last 24 hr 05/06/25 05/06/25 17:14 19:16 WBC 14.0 H RBC 4.51 Hgb 12.8 Hct 39.5 MCV 87.6 MCH 28.4 MCHC 32.4 RDW Std Deviation 44.4 H RDW Coeff of Scot 13.9 Plt Count 392 MPV 9.3 Immature Gran % (Auto) 0.600 Neut % (Auto) 74.5 H Lymph % (Auto) 14.6 L Wolfe % (Auto) 8.6 Eos % (Auto) 1.0 Baso % (Auto) 0.7 Absolute Neuts (auto) 10.4 H Absolute Lymphs (auto) 2.04 Nucleated RBC % 0 PT 13.9 INR 1.0 APTT 27.9 Sodium 140 Potassium 3.6 Chloride 104 Carbon Dioxide 25.2 Anion Gap 11 BUN 12 Creatinine 0.70 Estim Creat Clear Calc 47.11 L Est GFR (MDRD) Non-Af 85 BUN/Creatinine Ratio 16.8 Glucose 123 H Calcium 9.2 Magnesium 1.9 Troponin T High Sens < 6 Troponin T Hi Sens 2 Hr 10 NT pro BNP II 86 TSH 1.670 Free T4 1.40 Free T3 pg/dL 2.6 Radiography Diagnostic Testing: Clinical Impression(s) from Imaging Studies Chest CTA 05/06/25 17:35 IMPRESSION: No evidence of pulmonary embolism. Mild pulmonary edema/CHF. No pleural effusion or pneumothorax. Reading Location: [facility] Discharge Plan Triage Chief Complaint: Chest Pain ED Provider: Mino Adamson Dx/Rx/DC Orders Clinical Impression: Chest pain, History of gastroesophageal reflux (GERD) Prescriptions: No Action oxybutynin chloride 10 mg tablet extended release 24hr 10 mg PO QDAY levothyroxine 100 mcg tablet 100 mcg PO QDAY Aspirin, Baby 81 mg PO DAILY multivitamin Tablet 1 tab PO DAILY Other Ambulatory Orders: Stress Test Echo W/Contrast (Routine) Facility: [facility] - Location: [facility] Ordered By: Dr. Mino Adamson Primary Care Provider: Adin Watts Referrals: Adin Watts MD [Primary Care Provider, Family Practice] Jourdan Clifton DO [Med Staff - Active Staff, Interventional Cardiology] Activity Restrictions/Additional Instructions: Your blood work did not show any acute findings here today your CT of your chest did not show any acute findings either. Follow-up with the cardiology team in the outpatient setting and go to the stress test as scheduled. Return with worsening symptoms or any other concerns Print Language: Setswana
[2025-05-06] MEDS: Nitroglycerin SL (ED/IMG/CATH) 0.4 MG TABLET SL ×3 (17:21→17:55)
--- NOTE | 2025-05-06 17:35 | CT_ITS ---
PROCEDURE: CTA CHEST W/WO CONTRAST 05/06/2025 REASON FOR EXAM: CHEST PAIN, SOB, RECENT TRAVEL TECHNIQUE: Procedure Code: [id number] Modality: CT Procedure: CTA CHEST W/WO CONTRAST Multiplanar Sagittal and Coronal images were obtained. CONTRAST: Isovue 370 VOLUME: 103 mL One or more dose reduction techniques were used (e.g., Automated exposure control, adjustment of the mA and/or kV according to patient size, use of iterative reconstruction technique). RADIATION DOSE SUMMARY: CTDlvol: 9.88 mGy DLP: 320.96 mGycm COMPARISON: None. # of known CTs in the past 12 months: 0 # of known Cardiac Nuclear Medicine Studies in the past 12 months: 0 FINDINGS: Thoracic Aorta: No aneurysm. No dissection. Heart: Large cardiomegaly. Atherosclerotic calcifications of the coronary arteries. Pulmonary Vessels: No evidence of pulmonary embolism. Hardware: Unremarkable. Lymph nodes: No lymphadenopathy. Lungs and Airways: Elevation of the right hemidiaphragm. Diffuse ground-glass densities may represent mild pulmonary edema Pleura: No pleural effusion or pneumothorax. Upper Abdomen: Unremarkable. Bones: No acute bony abnormalities. CT/CTA Chest W/WO Contrast IMPRESSION: No evidence of pulmonary embolism. Mild pulmonary edema/CHF. No pleural effusion or pneumothorax. Reading [facility]
--- OUTSIDE RECORDS SUMMARY | 2025-05-06 18:06 | XMS RPT_ITS | CCD ---
Author Organization [facility] Care Team Providers Care Scow Captain Name Role Phone KEO, ELEANOR S Attending Unavailable JOLLIFF, ELEANOR S Consulting Unavailable JOLLIFF, ELEANOR S Primary Care Unavailable JOLLIFF, ELEANOR S Admitting Unavailable PROVIDER, UNKNOWN Consulting Unavailable Keo GUTIERREZ, Dr. Eleanor Capps Primary Care Provider [phone] Keo GTUIERREZ, Dr. Eleanor Capps Referring Provider [phone] Mani GUTIERREZ, Dr. Bello Attending Provider [phone] Mani GUTIERREZ, Dr. Bello Referring Provider Mani GUTIERREZ, Dr. Bello Other Provider Malinda GUTIERREZ, Dr. Jain Attending Provider [phone] [facility] TECHNICIAN, Karthik Attending Unavailable [facility]ORAT[facility] TECHNICIAN, Karthik Referring Unavailable Jolliff, Eleanor S Primary Care Unavailable Ace Singleton Attending Unavailable Fatouiff, Eleanor S Primary Care Unavailable Ace Singleton Referring Unavailable Joseph Carrero Attending Unavailable Jolliff, Eleanor S Primary Care Unavailable Jolliff, Eleanor S Primary Care Unavailable Ace Singleton Referring Unavailable Ace Singleton Attending Unavailable Ace Singleton Attending Unavailable Jolliff, Eleanor S Referring Unavailable Jolliff, Eleanor S Primary Care Unavailable Jolliff, Eleanor S Primary Care Unavailable Ace Singleton Referring Unavailable Ace Singleton Consulting Unavailable Susy Petty Attending Unavailable Jolliff, Eleanor S Primary Care Unavailable Jolliff, Eleanor S Attending Unavailable KeelypensAce oconnell Attending Unavailable Jolliff, Eleanor S Primary Care Unavailable Jolliff, Eleanor S Referring Unavailable Medications Current Medications Medication Drug Class(es) Dates Sig (Normalized) Sig (Original) Aspirin, Baby (5 sources) Start: 09-05-2014 take 81 mg by mouth once daily Aspirin, Baby Active 81 mg PO DAILY September 05, 2014 12:00am Start: 09-05-2014 take 81 mg by mouth once daily Aspirin, Baby Active 81 MG PO DAILY September 04, 2014 11:00pm Start: 09-05-2014 take 81 mg by mouth once daily Aspirin, Baby Active 81 MG PO DAILY September 05, 2014 12:00am levothyroxine sodium 0.1 mg oral tablet (1 source) l-Thyroxine Start: 07-02-2024 take 1 tablet by mouth once daily Levothyroxine 100 mcg tablet Active 100 ug PO daily July 02, 2024 1:00am Multivitamin preparation (4 sources) Start: 01-19-2021 take 1 tablet by mouth once daily Multivitamin Active 1 TABLET PO DAILY January 18, 2021 11:00pm Start: 01-19-2021 take 1 tablet by gaurang th once daily Multivitamin Active 1 TABLET PO DAILY January 19, 2021 12:00am Multivitamin Tablet (1 source) Start: 01-19-2021 Multivitamin Tablet Active 1 {tbl} PO DAILY January 19, 2021 12:00am 24 hr oxybutynin chloride 10 mg extended release oral tablet (1 source) Cholinergic Muscarinic Antagonist Start: 07-02-2024 take 1 tablet by mouth once daily Oxybutynin Chloride 10 mg tablet extended release 24hr Active 10 mg PO daily July 02, 2024 1:00am Completed/Discontinued Medications Medication Drug Class(es) Dates Sig (Normalized) Sig (Original) esomeprazole 40 mg delayed release oral capsule (10 sources) Proton Pump Inhibitor Start: 07-02-2024 End: 08-27-2024 take 1 capsule by mouth once daily Esomeprazole Magnesium (Nexium) 40 mg capsule,delayed release(DR/EC) Discontinued 40 mg PO daily July 02, 2024 9:32am August 27, 2024 12:49pm Start: 08-18-2022 End: 07-02-2024 take 1 capsule by mouth twice daily Esomeprazole Magnesium (Nexium) 40 MG capsule Discontinued 40 mg PO TWICE A DAY August 18, 2022 5:41pm July 02, 2024 9:33am Start: 09-05-2014 End: 08-18-2022 take 1 capsule by mouth once daily Esomeprazole Magnesium (Nexium) 40 MG capsule Discontinued 40 mg PO DAILY September 05, 2014 12:00am August 18, 2022 5:41pm sucralfate 1000 mg oral tablet (4 sources) Aluminum Complex Start: 06-15-2023 End: 07-02-2024 take 1 tablet by mouth three times daily Sucralfate (Carafate) 1 gram tablet Discontinued 1 g PO THREE TIMES A DAY June 15, 2023 1:00am July 02, 2024 9:32am Problems Problem Classification Problem Date Documented Date Episodic/Chronic Abdominal pain (8 sources) Epigastric pain; Translations: [Epigastric pain] 06-15-2023 Episodic Cardiac dysrhythmias (5 sources) Palpitations; Translations: [Palpitations] 12-18-2018 Episodic Esophageal disorders (4 sources) Gastroesophageal reflux disease; Translations: [Gastro-esophageal reflux disease without esophagitis] 06-15-2023 Chronic Immunizations and screening for infectious disease (6 sources) La antibody positive; Translations: [Other specified abnormal immunological findings in serum] Onset: 08-27-2024 08-27-2024 Episodic Comment on above: Patient does have a dry mouth for years. She did have a positive REESE resulting in positive SSB being noted. She does have a monoclonal spike with kappa chain associated. Possible autoimmune disease warrants consideration. As noted above. Nonspecific chest pain (10 sources) Chest pain; Translations: [Chest pain, unspecified] 08-18-2022 Episodic Other circulatory disease (2 sources) Raynaud's phenomenon; Translations: [Raynaud's syndrome without gangrene] 08-27-2024 Chronic Comment on above: Possible Raynaud's d isease with paresthesias and distal small vessel vascular change. Other circulatory disease (2 sources) Raynaud's syndrome without gangrene; Translations: [Raynaud's syndrome without gangrene] Onset: 08-27-2024 Chronic Other lower respiratory disease (4 sources) Dyspnea; Translations: [Dyspnea, unspecified] 08-26-2022 Episodic Other nervous system disorders (7 sources) Paresthesia; Translations: [Paresthesia of skin] 06-29-2023 Episodic Comment on above: Patient states sever al months of paresthesia. She became concerned that may represent a stroke or some other problem went to ED on 05/17/2024. Symptoms have been persistent.Patient does have GERD. She does use Nexium for controlling her symptoms. Possible B12 deficiency warrants consideration. Other causes may include autoimmune disease, paraproteinemias, thyroid disorder. She does take levothyroxine.At this point in time we will screen the patient for basic blood work as listed below. Patient will return to neurology clinic in 2 to 3 months. Depending on results we may need EMG and nerve conduction study.08/27/2024:B12 was measured proximately 300. Autoimmune screen is positive for positive REESE and SSA. Consideration of Sjogren's may be warranted. (Patient does report a chronically dry mouth but does not have dry eyes). Patient does have a monoclonal gammopathy spike with kappa light chain associated noted on serum protein electrophoresis and immunofixation.Changes in toes and fingers suggest possible Raynaud's as well. 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 This has been a chronic problem. It is exacerbated or brought on completely by use of coffee and caffeine. She is a limited caffeine consumer. She likes to drink a cup of coffee per day.No other particular issue with regard to tremor noted at this time.08/27/2024:Tremor appears to be quite minimal or understated today. No new action per neurology. Other nervous system disorders (2 sources) Paresthesia of skin; Translations: [Paresthesia of skin] Onset: 11-11-2024 Episodic Other nervous system disorders (1 source) Tremor, unspecified; Translations: [Tremor, unspecified] Onset: 08-27-2024 Episodic Thyroid disorders (1 source) Hypothyroidism, unspecified; Translations: [Hypothyroidism, unspecified] Onset: 12-03-2023 Chronic Unclassified (1 source) R20.2 - Paresthesia of skin,R76.8 - Other specified abnormal immunological findings in serum,R25.1 - Tremor, unspecified,I73.00 - Raynaud's syndrome without gangrene Unclassified (1 source) Cough, unspecified; Translations: [Cough, unspecified] Onset: 04-05-2024 Results Test Name Value Interpretation Reference Range Facility NCS and/or EMG Patienton NCS and/or EMG Patient [facility] [address] [place] [address] MR#: [id number] Acct: [id number] Name: JAQUI CHIRINOS Rep #: [id number] : 1940 83 From: Susy Petty MD Referring Dr: Ace Singleton MD Status: REG CL I Location: PSN Date: 10/02/24 Sex: F C NCS and/or EMG Patient Report Ordering Doctor: Ace Singleton DATE OF SERVICE: 10/02/24 Jaqui presents with complaints of tingling in the lower legs and numbness in the forearms. She reports numbness in both hands. Electrodiagnostic findings: Right median motor nerve demonstrates normal distal latency amplitude and conduction velocity. Right ulnar motor responses within normal limits, including conduction a cross the elbow. Right peroneal motor nerve demonstrates normal distal latency, amplitude and conduction velocity. Right tibial motor response is within normal limits. Normal right tibial, right peroneal, right median and right ulnar F???waves. H???reflexes normal bilaterally. Sensory responses are within normal limits. Needle EMG testing was performed the right upper and right lower limb. All muscles tested showed no evidence of denervation with normal motor unit action potentials. Electrodiagnostic impression: This is a normal electrodiagnostic study of the lower limbs. There is no electrodiagnostic evidence for peripheral polyneuropathy. There is no electrodiagnostic evidence for lumbosacral or cervical radiculopathy. Multi Select Codes Neurology Neurology Interp Codes: 10876-99 Musc test done w/n test comp (interp) (2) and 70878-64 Nrv cndj test 13/> studies (interp) 10/02/24 1426 Date Susy Petty MD CC: Dr. Eleanor Crowley MD; Dr. Susy Petty MD; Dr. Ace Singleton MD Date Dictated: 10/02/241422 Date Transcribed: 10/02/241422 Catering Coordinator: AA Signed Normal [facility] Neurology Visit Reporton Neurology Visit Report [facility] [address], [address] [place] [address] OFFICE VISIT Date of Service: 08/27/24 MR#: [id number] Acct: [id number] Name: JAQUI CHIRINOS Rep #: [id number] : 1940 Provider: Dr. Ace vera MD Age/Sex: 83/F Location[place] [facility] Status: Signed HPI HPI Chief Complaint: Neurology follow up Details: The patient is a 83-year-old right handed female who presents for a 2 month follow up on Paresthesia and tremor. This lady presents by herself for follow-up of laboratory evaluation of paresthesias of fingers and toes. Patient is concerned that she has neuropathy. She also notes that her fingers and nose tend to change color including at times turning white and at other times becoming purpleish blue. It tends to be worse in cold weather. Patient had screening for connective tissue diseases. Patient's ESR was normal however CRP was elevated. She had a positive REESE and elevated SSA. 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 It is possible that the patient has Raynaud's phenomenon and neuropathy related to abnormal circulating proteins and inflammation. He otherwise appears intact. I have decided that a rheumatology assessment as well as EMG and nerve conduction study to evaluate neuropathy would be appropriate. ROS: No headaches. No changes in vision. No difficulty chewing. Paresthesias persist. Changes in coloration of toes noted by patient. Fingers and toes may be painful particularly in colder weather. No particular complaints of diffuse pain noted. Patient denies coughing up blood vomiting blood passing blood in stool or urine. Patient has no known rheumatologic disease. Exam Const Other: BP 130/66 pulse 61 respiration 16 temperature 98.4 O2 sat 92%. Patient's BMI is 27.8%. General appearance a well-developed well-nourished female somewhat anxious. Neurologic examination: Mental status: Awake alert oriented. Memory is intact. Language of normal washer carcass expression repetition. Insight and judgment mentation overall appears very good. CN II-XII: Pupils about 3 mm in size. Visual schulte full to confrontation. Fundi not examined. Extraocular muscles intact. No nystagmus no ptosis. Motor and sensory function face normal. Hearing swallowing phonation tongue normal. Motor exam: No focal weakness identified. No muscle tenderness noted. Strength seems appropriate for age. Cerebellar testing: Patient does have a high-frequency low amplitude tremor. It is minimal on today's evaluation. No ataxia. Reflexes: 1+ at biceps 2+ at knees. Babinski not checked. Sensory exam: Patient indicates that there is some paresthesias in all fingertips and across all toes. Station gait is normal. Inspection of hands and feet show that this fingers all appear to have normal coloration. The toes do have a dusky appearance right 2-3 4 and 5. The toe great toe appears white in its proximal segment and violaceous and at the tip. The left foot has a similar appearance. The toes do not appear to feel cold. (Today is a cold day with high winds and snow predicted for tonight). Assessment and Plan Assessment and Plan (1) Paresthesia: Status: Acute Comment: Patient states several months of paresthesia. She became concerned that may represent a stroke or some other problem went to ED on 05/17/2024. Symptoms have been persistent. Patient does have GERD. She does use Nexium for controlling her symptoms. Possible B12 deficiency warrants consideration. Other causes may include autoimmune disease, paraproteinemias, thyroid disorder. She does take levothyroxine. At this point in time we will screen the patient for basic blood work as listed below. Patient will return to neurology clinic in 2 to 3 months. Depending on results we may need EMG and nerve conduction study. 08/27/2024: B12 was measured proximately 300. Autoimmune screen is positive for positive REESE and SSA. Consideration of Sjogren's may be warranted. (Patient does report a chronically dry mouth but does not have dry eyes). Patient does have a monoclonal gammopathy spike with kappa light chain associated noted on serum protein electrophoresis and immunofixation. Changes in toes and fingers suggest possible Raynaud's as well. Plan: 1. Referral to rheumatology for an opinion. 2. Obtain EMG and nerve conduction study. 3. Patient to return to neurology clinic in 3 months for reassessment. 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 It is exacerbated or brought on completely by use of coffee and caffeine. She is a limited caffeine consumer. She likes to drink a cup of coffee per day. No other particular issue with regard to tremor noted at this time. 08/28/19 (more content not included)... Normal [facility] TRINO + Protein Sierra Sebastianon 07-04-2024 Albumin [Mass/Vol] 3.5 g/dL Normal 2.9-4.4 [facility] Comment on above: Order Comment: N Performed By: #### L 503.0105, L506.0250, L501.9520, L3100.3425, L501.6710, L3100.5450 ####[facility] [address] [place], [address] Albumin/Globulin [Mass ratio] 1.0 {ratio} Normal 0.7-1.7 [facility] Comment on above: Order Comment: N Performed By: #### L 503.0105, L506.0250, L501.9520, L3100.3425, L501.6710, L3100.5450 ####[facility] [address] [place], [address] BHHPU-4-GDYO 0.3 g/dL Normal 0.0-0.4 [facility] Comment on above: Order Comment: N Performed By: #### L 503.0105, L506.0250, L501.9520, L3100.3425, L501.6710, L3100.5450 ####[facility] [address] [place], [address] IHZMJ-1-EJNI 1.1 g/dL High 0.4-1.0 [facility] Comment on above: Order Comment: N Performed By: #### L 503.0105, L506.0250, L501.9520, L3100.3425, L501.6710, L3100.5450 ####[facility] [address] [place], [address] BETA GLOBULIN 1.1 g/dL Normal 0.7-1.3 [facility] Comment on above: Order Comment: N Performed By: #### L 503.0105, L506.0250, L501.9520, L3100.3425, L501.6710, L3100.5450 ####[facility] [address] [place], [address] GAMMA GLOBULIN 1.3 g/dL Normal 0.4-1.8 [facility] Comment on above: Order Comment: N Performed By: #### L 503.0105, L506.0250, L501.9520, L3100.3425, L501.6710, L3100.5450 ####[facility] [address] [place], [address] Globulin (S) [Mass/Vol] 3.7 g/dL Normal 2.2-3.9 [facility] Comment on above: Order Comment: N Performed By: #### L 503.0105, L506.0250, L501.9520, L3100.3425, L501.6710, L3100.5450 ####[facility] [address] [place], [address] TRINO RESULT,S Comment Abnormal . [facility] Comment on above: Order Comment: N Result Comment: Immu nofixation shows IgM monoclonal protein with kappa light chain specificity. Performed By: #### L 503.0105, L506.0250, L501.9520, L3100.3425, L501.6710, L3100.5450 ####[facility] [address] [place], [address] IMMUNOGLOB A QN 196 mg/dL Normal 64-422 [facility] Comment on above: Order Comment: N Performed By: #### L 503.0105, L506.0250, L501.9520, L3100.3425, L501.6710, L3100.5450 ####[facility] [address] [place], [address] IMMUNOGLOB G QN 1347 mg/dL Normal 586-1602 [facility] Comment on above: Order Comment: N Performed By: #### L 503.0105, L506.0250, L501.9520, L3100.3425, L501.6710, L3100.5450 ####[facility] [address] [place], [place], [id number] IMMUNOGLOB M QN 105 mg/dL Normal 26-217 [facility] Comment on above: Order Comment: N Performed By: #### L 503.0105, L506.0250, L501.9520, L3100.3425, L501.6710, L3100.5450 ####[facility] [address] [place], [place], [phone] M-Umair Comment: Normal Not Observed [facility] Comment on above: Order Comment: N Result Comment: Due to the small quantity of monoclonal protein, unable to quantitate the M-spike. Performed By: #### L 503.0105, L506.0250, L501.9520, L3100.3425, L501.6710, L3100.5450 ####[facility] [address] [place], [place], [phone] NOTE: Comment Normal . [facility] Comment on above: Order Comment: N Result Comment: Prot ein electrophoresis scan will follow via computer, mail, or gaming worker delivery. Performed at: [address] [id number] Diversity Manager: Tom Marte PhD, Phone: [phone] Performed By: #### L 503.0105, L506.0250, L501.9520, L3100.3425, L501.6710, L3100.5450 ####[facility] [address] [place], [address] Protein [Mass/Vol] 7.2 g/dL Normal 6.0-8.5 [facility] Comment on above: Order Comment: N Performed By: #### L 503.0105, L506.0250, L501.9520, L3100.3425, L501.6710, L3100.5450 ####[facility] [address] [place], [place], [phone] REESE w/ Reflex Mult Confirmon 07-03-2024 REESE,DIRECT Positive Abnormal Negative [facility] Comment on above: Performed By: #### L 503.0105, L506.0250, L501.9520, L3100.3425, L501.6710, L3100.5450 #### [facility] [address] [place], [place], [phone] ANTI-DNA (DS)AB <1 Normal 0-9 [facility] Comment on above: Result Comment: Nega tive <5 Equivocal 5 - 9 Positive >9 Performed By: #### L 503.0105, L506.0250, L501.9520, L3100.3425, L501.6710, L3100.5450 #### [facility] [address] [place], [address] ANTISCLERODERM <0.2 Normal 0.0-0.9 [facility] Comment on above: Performed By: #### L 503.0105, L506.0250, L501.9520, L3100.3425, L501.6710, L3100.5450 #### [facility] [address] [place], [place], [id number] Albumin Elph [Mass/Vol]Order ed By: Ace Singleton on 07-02-2024 Albumin [Mass/Vol] 3.5 g/dL 2.9-4.4 [facility] C-reactive protein measureme nt by high sensitivity methodOrdered By: Ace Singleton on 07-02-2024 C-reactive protein measurement by high sensitivity method 6.19 mg/L High 0.0-3.0 [facility] Comment on above: C-Reactive Protein ( CRP) provides useful information for thediagnosis, therapy and monitoring of inflammatory processesand associated diseases. For the evaluation of Relative Riskfor Cardiovascular Disease, a High Sensitivity CRP (HSCRP)should be ordered. CRPon 07-02-2024 C-REACTIVE PROT 6.19 mg/L High 0.0-3.0 [facility] Comment on above: Result Comment: C-Re active Protein (CRP) provides useful information for the diagnosis, therapy and monitoring of inflammatory processes and associated diseases. For the evaluation of Relative Risk for Cardiovascular Disease, a High Sensitivity CRP (HSCRP) should be ordered. Performed By: #### L 503.0105, L506.0250, L501.9520, L3100.3425, L501.6710, L3100.5450 #### [facility] [address] [place], [address] Folates, (Folic Acid)on 06-15 FOLATES 12.50 ng/mL Normal 3.1-55.4 [facility] Comment on above: Order Comment: N Performed By: #### L 503.0105, L506.0250, L501.9520, L3100.3425, L501.6710, L3100.5450 ####[facility] [address] [place], [address] Interpretation of serum or p lasma protein pattern by immunofixation (narrative resultOrdered By: Ace Singleton on 07-02-2024 Protein Fractions Immunofixation Jerry [Interp] Comment: g/dL Not Observed [facility] Comment on above: Due to the small anaid ntity of monoclonal protein, unable toquantitate the M-spike. Neurology Visit Reporton Neurology Visit Report [facility] [address], [address] [place] [id number] OFFICE VISIT Date of Service: 07/02/24 MR#: [id number] Acct: [id number] Name: JAQUI CHIRINOS Rep #: [id number] : 1940 Provider: Dr. Ace vera MD Age/Sex: 83/F Location: [facility] Status: Signed HPI HPI Chief Complaint: Establish Care Details: The patient is a 83-year-old right handed female who [facility]. She was referred 05/17/2024 by [facility] ER for Paresthesia's. This lady presents by herself for evaluation. She indicates that she has had tingling sensation involving arms and legs for several months. She was concerned that they may represent possible stroke presented to the ED. There CT scan of the head was performed which was interpreted as negative. Patient also had some basic blood work performed. No obvious cause or abnormality identified. Patient was referred to neurology. Patient does admit to having a tremor which is accentuated by coffee. She likes to drink coffee. She does have a GERD but apparently she can tolerate coffee. She has been on Nexium for an extended period of time. I cannot determine whether or not she has had a B12 level performed. I do not see 1. She is on levothyroxine. She does see a physician for managing hypothyroidism. Patient has a tremor. She states that it gets worse when she does take coffee. Involves both hands head and voice. She also has tinnitus bilaterally. She says her hearing is not impaired but that she needs to stand momentarily still when she first stands up to maintain her equilibrium. No history of traumas strokes or neurologic issues. ROS: Head rare headache on occasion. Very mild. Eyes no loss of vision Ear nose and throat tinnitus. No hearing loss. Mild imbalance. Oropharynx able to swallow without difficulty. Respiratory no respiratory issues Cardiac occasional chest discomfort thought to be GERD. No cardiac history Abdomen GERD. Does not vomit blood past blood in the stool cough up blood or lose blood in urine. She is noted to have urinary difficulties and is on oxybutynin. Extremities without trauma Skin without rash or allergic closures. Neurologic denied stroke seizures paralysis neck or back issues. Exam Const Other: Blood pressure 114/68 pulse is 105 respiration 16 temperature 98.6 O2 sat 99%. General appearance well-developed well-nourished female. BMI 27.4%. HEENT: Normocephalic conjunctiva clear. Respiratory: Clear to auscultation Cardiac: Tachycardic without murmur Abdomen: Nondistended Extremities without evidence of trauma Skin intact on exposed areas. Neurologic examination: Mental status: Awake alert oriented x 3. Memory show she recalled 1/3. Anxiety may have been a factor. Patient does appear to be anxious. Language shows normal washer carcass expression repetition naming. Insight and judgment appears to be intact. CN II-XII: Pupils equal round react to light. About 3 mm. Visual schulte full. Extraocular muscles intact. No nystagmus. No ptosis. Motor and sensory function of face is normal. Hearing seemed mildly decreased to me but patient indicates intact. Swallowing and phonation appear intact except for mild vocal tremor. She has very mild head tremor. Tongue midline functional. Motor examination: No focal weakness identified. Good strength all 4 extremities. Cerebellar testing: Finger-nose shows a intention tremor. No cogwheeling or rigidity. Reflexes 2+ at biceps 3+ at knees 2+ at ankles toes down. Sensory exam appears to be intact to tactile and vibratory sense all 4 extremities. She nevertheless complains of tingling paresthesias. Station gait shows that gait is normal. Station shows that she wavers slightly initially with eyes closed but is otherwise stable. Assessment and Plan Assessment and Plan (1) Paresthesia: Status: Acute Comment: Patient states several months of paresthesia. She became concerned that may represent a stroke or some other problem went to ED on 05/17/2024. Symptoms have been persistent. Patient does have GERD. She does use Nexium for controlling her symptoms. Possible B12 deficiency warrants consideration. Other causes may include autoimmune disease, paraproteinemias, thyroid disorder. She does take levothyroxine. At this point in time we will screen the patient for basic blood work as listed below. Patient will return to neurology clinic in 2 to 3 months. Depending on results we may need EMG and nerve conduction study. Plan: 1. Basic blood work as noted below. 2. Patient to follow-up in 2 to 3 months for reassessment. 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 It is exacerbated or brought on completely by use of coffee and caffeine. Sh (more content not included)... Normal [facility] No Panel InformationOrdered By: Ace Singleton on 07-02-2024 Addendum Document Comment . [facility] Comment on above: Protein electrophore sis scan will follow via computer,mail, or gaming worker delivery.Performed at: [address] [place] [id number] Director: Tom Marte PhD, Phone: [phone] Serum DNA double strand anti body assay (units/volume)Ordered By: Ace Singleton on 07-02-2024 DNA double strand Ab Qn (S) [IU]/mL 0-9 [facility] Comment on above: Negative <5 Equivoca l 5 - 9 Positive >9 Serum Scl-70 antibody assay (units/volume)Ordered By: Ace Singleton on 07-02-2024 SCL-70 extractable nuclear Ab Qn (S) <0.2 AI 0.0-0.9 [facility] Serum globulin measurement ( mass/volume)Ordered By: Ace Singleton on 07-02-2024 Globulin (S) [Mass/Vol] 3.7 g/dL 2.2-3.9 [facility] Serum or plasma IgA measurem ent (mass/volume)Ordered By: Ace Singleton on 07-02-2024 IgA [Mass/Vol] 196 mg/dL 64-422 [facility] Serum or plasma IgG measurem ent (mass/volume)Ordered By: Ace Singleton on 07-02-2024 IgG [Mass/Vol] 1347 mg/dL 586-1602 [facility] Serum or plasma alpha 1 glob ulin measurement by electrophoresis (mass/volume)Ordered By: Ace Singleton on 07-02-2024 Alpha 1 globulin Elph [Mass/Vol] 0.3 g/dL 0.0-0.4 [facility] Alpha 1 globulin Elph [Mass/Vol] 1.1 g/dL High 0.4-1.0 [facility] Serum or plasma beta globuli n measurement by electrophoresis (mass/volume)Ordered By: Ace Singleton on 07-02-2024 Beta globulin Elph [Mass/Vol] 1.1 g/dL 0.7-1.3 [facility] Serum or plasma gamma globul in measurement by electrophoresis (mass/volume)Ordered By: Ace Singleton on 07-02-2024 Gamma globulin Elph [Mass/Vol] 1.3 g/dL 0.4-1.8 [facility] Serum or plasma immunoelectr ophoresis interpretation (nominal result)Ordered By: Ace Singleton on 07-02-2024 Interpretation IEP [Interp] Comment High . 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 Serum or plasma protein rachel urement (mass/volume)Ordered By: Ace Singleton on 07-02-2024 Protein [Mass/Vol] 7.2 g/dL 6.0-8.5 [facility] Serum or plasma thyroid stim ulating hormone (TSH) measurement (units/volume)Ordered By: Ace Singleton on 07-02-2024 TSH Qn 1.000 uIU/mL 0.358-3.740 [facility] Thyroid Stim Hormone (TSH)on 07-02-2024 TSH 1.000 uIU/mL Normal 0.358-3.740 [facility] Comment on above: Performed By: #### L 503.0105, L506.0250, L501.9520, L3100.3425, L501.6710, L3100.5450 #### [facility] [address] [facility] [facility]. [place], [place], [address] Vitamin B12on 07-02-2024 Cobalamin (Vitamin B12) [Mass/Vol] 310 pg/mL Normal 211-911 [facility] Comment on above: Performed By: #### L 503.0105, L506.0250, L501.9520, L3100.3425, L501.6710, L3100.5450 #### [facility] [address] [facility] [facility] [place], [address] Vitamin B12 measurementOrder ed By: Ace Singleton on 07-02-2024 Cobalamin (Vitamin B12) [Mass/Vol] 310 pg/mL 211-911 [facility] 12 Lead EKGon 05-17-2024 12 Lead EKG [facility] Cardiovascular Services [address] [place] [address] 12 Lead EKG 05/17/24 1155 MR#: [id number] Acct: [id number] Name: JAQUI CHIRINOS Rep #: [id number] : 1940 83 From: Adarsh Gomez MD Attending Dr: Status: DEP ER Ordering Dr: Yisel Romero Date: 05/17/24 Location: ED Sex: F C Admitted: Test Reason : CP Blood Pressure : */* mmHG Vent. Rate : 92 BPM Atrial Rate : 92 BPM P-R Int : 142 ms QRS Dur : 72 ms QT Int : 348 ms P-R-T Axes : 42 -2 44 degrees QTcB Int : 430 ms Normal sinus rhythm Nonspecific ST and T wave abnormality Abnormal ECG Confirmed by DIANELYS GUTIERREZ, ADARSH ([id number]), online content editor ADA MONTAGUE ([id number]) on 05/20/2024 8:00:49 AM Referred By: BB/RYAN Confirmed By: ADARSH GOMEZ MD 05/20/24 0800 Date Adarsh Gomez MD CC: Dr. Eleanor Crowley MD; Dr. Joseph Carrero DO; AMMON Ybarra Signed Normal [facility] Basic Metabolic Profile (BMP )on 05-17-2024 BUN/CRE 18.6 RATIO Normal 10-20 [facility] Comment on above: Order Comment: 'TROP ' Serial specimen #1, #2 or #3: 1 Performed By: #### L 500.2500, L100.0100, L501.4020 ####[facility] [address] [place], [address] CA,Total 9.3 mg/dL Normal 8.5-10.1 [facility] Comment on above: Order Comment: 'TROP ' Serial specimen #1, #2 or #3: 1 Performed By: #### L 500.2500, L100.0100, L501.4020 ####[facility] [address] [place], [address] Chloride [Moles/Vol] 108 mmol/L High 98-107 [facility] Comment on above: Order Comment: 'TROP ' Serial specimen #1, #2 or #3: 1 Performed By: #### L 500.2500, L100.0100, L501.4020 ####[facility] [address] [place], [address] CO2 [Moles/Vol] 28.0 mmol/L Normal 21.0-32.0 [facility] Comment on above: Order Comment: 'TROP ' Serial specimen #1, #2 or #3: 1 Performed By: #### L 500.2500, L100.0100, L501.4020 ####[facility] [address] [place], [address] Creatinine [Mass/Vol] 0.65 mg/dL Normal 0.55-1.02 [facility] Comment on above: Order Comment: 'TROP ' Serial specimen #1, #2 or #3: 1 Result Comment: The validity of the calculated GFR GFRAA in patients over 70 years has not been determined. Clinical correlation is essential. Performed By: #### L 500.2500, L100.0100, L501.4020 ####[facility] [address] [place], [address] ECRCL 48.64 ml/min Normal [facility] Comment on above: Order Comment: 'TROP ' Serial specimen #1, #2 or #3: 1 Performed By: #### L 500.2500, L100.0100, L501.4020 ####[facility] [address] [place], [address] EST GFR - AA 113 mL/min Normal >60 [facility] Comment on above: Order Comment: 'TROP ' Serial specimen #1, #2 or #3: 1 Result Comment: Afri can Burundian GFR Calc Performed By: #### L 500.2500, L100.0100, L501.4020 ####[facility] [address] [place], [address] GAP 5 Normal 5-15 [facility] Comment on above: Order Comment: 'TROP ' Serial specimen #1, #2 or #3: 1 Performed By: #### L 500.2500, L100.0100, L501.4020 ####[facility] [address] [place], [address] GFR/1.73 sq M.predicted among non-blacks MDRD (S/P/Bld) [Vol rate/Area] 93 mL/min/{1.73_m2} Normal >60 [facility] Comment on above: Order Comment: 'TROP ' Serial specimen #1, #2 or #3: 1 Result Comment: Non- GFR Calc Performed By: #### L 500.2500, L100.0100, L501.4020 ####[facility] [address] [place], [address] Glucose [Mass/Vol] 102 mg/dL Normal 74-106 [facility] Comment on above: Order Comment: 'TROP ' Serial specimen #1, #2 or #3: 1 Result Comment: Fast ing Glucose result from 100 to 125 mg/dL suggests IMPAIRED HOMEOSTASIS per A.D.A. criteria. Performed By: #### L 500.2500, L100.0100, L501.4020 ####[facility] [address] [place], [address] Potassium [Moles/Vol] 3.8 mmol/L Normal 3.5-5.1 [facility] Comment on above: Order Comment: 'TROP ' Serial specimen #1, #2 or #3: 1 Performed By: #### L 500.2500, L100.0100, L501.4020 ####[facility] [address] [place], [address] Sodium [Moles/Vol] 140 mmol/L Normal 136-145 [facility] Comment on above: Order Comment: 'TROP ' Serial specimen #1, #2 or #3: 1 Performed By: #### L 500.2500, L100.0100, L501.4020 ####[facility] [address] [place], [address] Urea nitrogen [Mass/Vol] 12 mg/dL Normal 7-18 [facility] Comment on above: Order Comment: 'TROP ' Serial specimen #1, #2 or #3: 1 Performed By: #### L 500.2500, L100.0100, L501.4020 ####[facility] [address] [place], [address] Brain/Head without Contrasto n 05-17-2024 Brain/Head without Contrast [facility] Imaging Services [address] [place] [address] Brain/Head without Contrast MR#: [id number] Acct: [id number] Name: JAQUI CHIRINOS Rep #: [id number] : 1940 F 83 From: Ramírez Jackson PCP: Dr. Eleanor Crowley MD Status: [facility] Study: Brain/Head without Contrast Date of Exam: 08/06 Exam# [id number] Ordering Dr: Yisel Romero [id number] INDICATION: paresthesia EXAMINATION: CT BRAIN - CT Head or Brain W/O Contrast Injection TECHNIQUE: Multiple axial images were obtained of the head without intravenous contrast. The protocol utilizes one or more of the following dose reduction techniques: automated exposure control, adjustment of mA and/or kV according to patient size,and/or use of iterative reconstruction technique. IV Contrast dosage and agent: None. RADIATION DOSAGE (If Supplied By Facility): CTDIvol = ( 47.06 ) mGy, DLP = ( 890.33 ) mGycm COMPARISON: No relevant prior comparison study available __ FINDINGS: BRAIN PARENCHYMA: No intra- or extra-axial hemorrhage. 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 No intracranial mass or mass effect. There is preservation of the hernandez/white matter interface. Posterior fossa structures are unremarkable. Atherosclerotic calcifications of the cavernous internal carotid arteries. CSF SPACES: Appropriate for age. No hydrocephalus. Basal cisterns are patent. CALVARIUM, SKULL BASE, PARANASAL SINUSES AND MASTOID AIR CELLS: Clear. No discrete lytic or blastic abnormalities. ORBITS: Previous right cataract surgery. CT/Brain/Head without Contrast IMPRESSION: 1. No acute intracranial process. 2. If symptoms persist, MRI of the brain is recommended. Electronically Signed: Ramírez Keene MD at 14:34 EST , CC: Dr. Eleanor Crowley MD; AMMON Ybarra Catering Coordinator: Signed Normal [facility] CBC W/Diff, Automatedon -2024 Absolute Lymph 1.48 X10 3/uL Normal 0.83-4.51 [facility] Comment on above: Performed By: #### L 500.2500, L100.0100, L501.4020 ####[facility] [address] [place], [address] Absolute Neut 6.9 X10 3/uL Normal 2.0-7.7 [facility] Comment on above: Performed By: #### L 500.2500, L100.0100, L501.4020 ####[facility] [address] [place], [address] Basophils/100 WBC (Bld) 1.0 % Normal 0-1 [facility] Comment on above: Performed By: #### L 500.2500, L100.0100, L501.4020 ####[facility] [address] [place], [address] Eosinophils/100 WBC (Bld) 1.1 % Normal 0-5 [facility] Comment on above: Performed By: #### L 500.2500, L100.0100, L501.4020 ####[facility] [address] [place], [address] Erythrocyte distribution width (RBC) [Ratio] 13.8 % Normal 11.6-14.6 [facility] Comment on above: Performed By: #### L 500.2500, L100.0100, L501.4020 ####[facility] [address] [place], [address] Hematocrit (Bld) [Volume fraction] 37.8 % Normal 37-47 [facility] Comment on above: Performed By: #### L 500.2500, L100.0100, L501.4020 ####[facility] [address] [place], [address] Hemoglobin (Bld) [Mass/Vol] 13.6 g/dL Normal 12.0-15.0 [facility] Comment on above: Performed By: #### L 500.2500, L100.0100, L501.4020 ####[facility] [address] [place], [address] IG% 0.500 Normal 0.0-0.9 [facility] Comment on above: Result Comment: IG% - Immature Granulocytes (promyelocytes, myelocytes and metamyelocytes) > 1% indicates that a LEFT SHIFT is Present. Performed By: #### L 500.2500, L100.0100, L501.4020 ####[facility] [address] [place], [address] Lymphocytes/100 WBC (Bld) 16.2 % Low 19-41 [facility] Comment on above: Performed By: #### L 500.2500, L100.0100, L501.4020 ####[facility] [address] [place], [address] MCH (RBC) [Entitic mass] 32.2 pg High 27.0-32.0 [facility] Comment on above: Performed By: #### L 500.2500, L100.0100, L501.4020 ####[facility] [address] [place], [address] MCHC (RBC) [Mass/Vol] 36.0 g/dL Normal 32-36 [facility] Comment on above: Performed By: #### L 500.2500, L100.0100, L501.4020 ####[facility] [address] [place], [address] MCV (RBC) [Entitic vol] 89.6 fL Normal 81-99 [facility] Comment on above: Performed By: #### L 500.2500, L100.0100, L501.4020 ####[facility] [address] [place], [address] Monocytes/100 WBC (Bld) 5.7 % Normal 0-10 [facility] Comment on above: Performed By: #### L 500.2500, L100.0100, L501.4020 ####[facility] [address] [place], [address] Neutrophils/100 WBC (Bld) 75.5 % High 47-70 [facility] Comment on above: Performed By: #### L 500.2500, L100.0100, L501.4020 ####[facility] [address] [place], [address] Nucleated RBC (Bld) [#/Vol] 0 10*3/uL Normal 0-5 [facility] Comment on above: Performed By: #### L 500.2500, L100.0100, L501.4020 ####[facility] [address] [place], [address] Platelet mean volume (Bld) [Entitic vol] 8.9 fL Normal 6.2-12.0 [facility] Comment on above: Performed By: #### L 500.2500, L100.0100, L501.4020 ####[facility] [address] [place], [address] Platelets (Bld) [#/Vol] 355 10*3/uL Normal 150-450 [facility] Comment on above: Performed By: #### L 500.2500, L100.0100, L501.4020 ####[facility] [address] [place], [address] RBC (Bld) [#/Vol] 4.22 10*6/uL Normal 4.2-5.4 [facility] Comment on above: Performed By: #### L 500.2500, L100.0100, L501.4020 ####[facility] [address] [place], [address] RDW SD 43.9 fl Normal 35.1-43.9 [facility] Comment on above: Performed By: #### L 500.2500, L100.0100, L501.4020 ####[facility] [address] [place], [address] WBC (Bld) [#/Vol] 9.2 10*3/uL Normal 4.4-11.0 [facility] Comment on above: Performed By: #### L 500.2500, L100.0100, L501.4020 ####[facility] [address] [place], [address] Chest 1 View (Portable)on Chest 1 View (Portable) [facility] Imaging Services [address] [place] [address] Chest 1 View (Portable) MR#: [id number] Acct: [id number] Name: JAQUI CHIRINOS Rep #: [id number] : 1940 F 83 From: Ramírez Jackson PCP: Dr. Eleanor Crowley MD Status: [facility] ER Study: Chest 1 View (Portable) Date of Exam: 05/17/24 Exam# [id number] Ordering Dr: Yisel Romero [id number] INDICATION: chest pain EXAMINATION/TECHNIQUE : X-RAY - XR Chest 1 View COMPARISON: Prior study dated: 03/15/2024 __ FINDINGS: LINES/DEVICES: None. LUNGS: [Elevation of the right hemidiaphragm. No focal infiltrate is seen. No evidence of pleural effusions. MEDIASTINUM AND CARDIOVASCULAR STRUCTURES: Cardiac silhouette not enlarged. Central airways and mediastinal contour are unremarkable. BONES AND SOFT TISSUES: Unremarkable. RAD/Chest 1 View (Portable) IMPRESSION: No radiographic evidence of acute cardiopulmonary disease. Electronically Signed: Ramírez Keene MD at 14:30 EST , CC: Dr. Eleanor Crowley MD; AMMON Ybarra Catering Coordinator: Signed Normal [facility] Emergency Department Summary on 05-17-[address] [facility] Medical Records Department [address] [place] [address] Emergency Department Summary 05/17/24 MR#: [id number] Acct: [id number] Name: JAQUI CHIRINOS Rep #: [id number] : 1940 83 From: Yisel VERDE PCP: Dr. Eleanor Crowley MD Status:DEP ER Location: ED HPI History of Present Illness Chief Complaint: Numb/Ting Narrative Narrative: 83-year-old female with past medical history of GERD, hypothyroidism presents with acute on chronic left arm and left leg tingling. She has had these symptoms for at least a year with no cause found. She states last evening her entire arm and entire leg started to feel more tingly and heavy. She does not have difficulty moving it. She has no visual or speech changes. She is able to walk like normal. She denies headache or nausea or vomiting. This morning she did have chest pain from about 8:30 AM to 9:30 AM which resolved after Pepto-Bismol. [facility] Medical History Anxiety GERD (gastroesophageal reflux disease) Home Medications ???Medication ???Instructions ???Recorded ???Last Taken ???Type Aspirin, Baby 81 mg PO DAILY 09/05/14 09/05/14 History multivitamin 1 tab PO DAILY 01/19/21 Unknown History esomeprazole magnesium 40 mg 40 mg PO BID #28 caps 08/18/22 Unknown Rx capsule,delayed release (Nexium) sucralfate 1 gram tablet (Carafate) 1 g PO TID #30 tabs 06/15/23 Unknown Rx Allergy/AdvReac Type Severity Reaction Status Date / Time No Known Allergies Allergy Verified 05/17/24 11:52 Social History (Updated 05/17/24 @ 13:30 by Piedad Olson) household members: none housing: [facility] Smoking Status: Never smoker ROS ROS ED ROS Narrative Constitutional: Negative for fever, chills. Eyes: Negative for visual change. CVS: Positive for chest pain. Negative for palpitations, syncope. Respiratory: Negative for shortness of breath, cough. GI: Negative for abdominal pain, nausea, vomiting, diarrhea. : Negative for dysuria. Neuro: Negative for headache. EXAM Physical Exam Narrative Exam Narrative: CONST: Patient sitting in no acute distress. EYES: Normal inspection. ENT: Normal inspection, moist mucous membranes. NECK: Normal inspection. RESP: No respiratory distress, CTAB. CVS: Regular rate and rhythm, no murmur, no gallop. ABD: Soft and nontender, no guarding or rebound, nondistended. SKIN: Color normal, no rash, warm, dry, intact. EXTREMITIES: Normal appearance, full range of motion of upper and lower extremities, 5/5 strength, reports subjective tingling but has normal sensation to light touch, 2+ radial and DP pulses. No upper or lower extremity drift, normal dxyiry-vu-qdfu and hbho-sy-wchw, no dysarthria or aphasia, no extinction. NIH is 0. NEURO: Alert and answering questions appropriately. PSYCH: Normal affect. Const Vital Signs: 05/17/24 11:48 05/17/24 13:48 05/17/24 15:07 Temperature 97.6 F L 97.5 F L Temperature Source Temporal Pulse Rate 92 80 62 Respiratory Rate 16 16 15 Blood Pressure 128/70 H 135/51 H 124/77 H Blood Pressure Mean 89 79 92 Pulse Ox 95 96 97 Oxygen Delivery Method Room Air Physical Exam Const Vital Signs: 05/17/24 11:48 05/17/24 13:48 05/17/24 15:07 Temperature 97.6 F L 97.5 F L Temperature Source Temporal Pulse Rate 92 80 62 Respiratory Rate 16 16 15 Blood Pressure 128/70 H 135/51 H 124/77 H Blood Pressure Mean 89 79 92 Pulse Ox 95 96 97 Oxygen Delivery Method Room Air MDM MDM MDM Narrative Medical decision making narrative: 83-year-old female was evaluated for acute on chronic left arm and left leg paresthesias. She has had this for months but it feels worse over the last 2 days. She also had a brief episode of chest pain this morning. She appears well and nontoxic, hemodynamically stable. She has a completely normal neurological exam with NIH of 0. Blood work and urinalysis overall unremarkable. EKG nonischemic and troponin is 6. CT brain shows no acute process. Since these paresthesias have been ongoing for 6+ months I do not feel she requires admission as I do not suspect stroke. I recommended outpatient follow-up with her PCP and neurology and she was discharged in stable condition. Lab Data Attestation: I reviewed the patient's lab results. Labs: Laboratory Results - last 24 hr 05/17/24 13:27 WBC 9.2 RBC 4.22 Hgb 13.6 Hct 37.8 MCV 89.6 MCH 32.2 H MCHC 36.0 RDW Std Deviation 43.9 RDW Coeff of Scot 13.8 Plt Count 355 MPV 8.9 Immature Gran % (Auto) 0.500 Neut % (Auto) 75.5 H Lymph % (Auto) 16.2 L Wilbarger % (Auto) 5.7 Eos % (Auto) 1.1 Baso % (Auto) 1.0 Absolute Neuts (auto) 6.9 Absolute Lymphs (more content not included)... Normal [facility] L501.4020on 05-17-2024 TROPONIN-I HS 6 pg/mL Normal 3.0-54.0 [facility] Comment on above: Order Comment: 'TROP ' Serial specimen #1, #2 or #3: 1 Result Comment: Mira josue Note: New Test Units and Gender Specific Reference Ranges. For more information see Policy Stat Procedure Gaffney High Sensitivity Troponin (TNIH) and attachments. Performed By: #### L 500.2500, L100.0100, L501.4020 ####[facility] [address] [place], [address] Urinalysis, Completeon 05-17 BACTERIA 0 SEEN Normal None Seen [facility] Comment on above: Order Comment: CLEAN CATCH Performed By: #### L 400.0001 ####[facility] [address] [place], [address] EPI,SQUAMOUS 0 SEEN Normal 5-10 [facility] Comment on above: Order Comment: CLEAN CATCH Performed By: #### L 400.0001 ####[facility] [address] [place], [address] Mucus Ql (Urine sed) 0 SEEN Normal [facility] Comment on above: Order Comment: CLEAN CATCH Performed By: #### L 400.0001 ####[facility] [address] [place], [address] RBC 0 SEEN Normal 0-5 [facility] Comment on above: Order Comment: CLEAN CATCH Performed By: #### L 400.0001 ####[facility] [address] [place], [address] WBC 0 SEEN Normal 0-5 [facility] [facility] Comment on above: Order Comment: CLEAN CATCH Performed By: #### L 400.0001 ####[facility] [address] [place], [address] Chest PA and Lateralon 03-15 Chest PA and Lateral [facility] Imaging Services [address] [place] [address] Chest PA and Lateral MR#: [id number] Acct: [id number] Name: JAQUI CHIRINOS Rep #: [id number] : 1940 F 83 From: Kaylee Watkins MD PCP: Dr. Eleanor Crowley MD Status: REG CLI Study: Chest PA and Lateral Date of Exam: 03/15/24 Exam# [id number] Ordering Dr: Karthik Soni NP, NP -C [id number] STUDY: X-RAY CHEST REASON FOR EXAM: Female, 83 years old patient with cough. TECHNIQUE: PA and lateral views of the chest. COMPARISON: Chest radiograph dated June 29, 2023. FINDINGS: There is moderate elevation of the right hemidiaphragm. The lungs are clear and expanded. There is no demonstrated pleural abnormality. Normal size heart. Normal mediastinum and summer. Normal visualized pulmonary arteries. Normal visualized aortic arch and descending thoracic aorta. There is demineralization of the osseous structures. Normal visualized ribs, clavicles, and shoulders. There is no demonstrated abnormality of the visualized soft tissue structures of the upper abdomen. RAD/Chest PA and Lateral IMPRESSION: No radiographic evidence of acute cardiopulmonary disease. Electronically Signed: Kaylee Watkins MD at 1:24 EDT Reading Location ID and State: [address] [place] [address] , Service support , CC: Karthik Soni; Dr. Eleanor Crowley MD Catering Coordinator: Signed Normal [facility] Thyroid Stim Hormone (TSH)on 11-24-2023 TSH 1.13 uIU/mL Normal 0.358-3.74 [facility] Comment on above: Performed By: #### L 501.9520 #### [facility] [address] [place], [place], [id number] Laboratory - Chemistry and C hemistry - challengeOrdered By: Eleanor Crowley on 07-07-2023 Cobalamin (Vitamin B12) [Mass/Vol] 272 pg/mL 211-911 [facility] No Panel InformationOrdered By: Eleanor Crowley on 07-07-2023 Folate 10.80 ng/mL 3.1-55.4 [facility] Serum or plasma thyroid stim ulating hormone (TSH) measurement (units/volume)Ordered By: Eleanor Crowley on 07-07-2023 TSH Qn 5.06 uIU/mL 0.358-3.74 [facility] Absolute lymphocyte countOrd ered By: Fredrick Recio on 06-29-2023 Lymphocytes Auto (Unsp spec) [#/Vol] 2.06 10*3/uL 0.83-4.51 [facility] Activated partial thrombopla stin time (aPTT) in platelet poor plasma by coagulation aOrdered By: Fredrick Recio on 06-29-2023 aPTT Coag (PPP) [Time] 29.1 s 24.1-36.2 [facility] Automated lymphocyte count a s percentage of total leukocytesOrdered By: Fredrick Recio on 06-29-2023 Lymphocytes/100 WBC Auto (Unsp spec) 22.7 % 19-41 [facility] Basophil percentageOrdered B y: Fredrick Recio on 06-29-2023 Basophils/100 WBC (Bld) 0.8 % 0-1 [facility] Chloride [Moles/Vol] 108 mmol/L 98-107 [facility] Eosinophils/100 WBC (Bld) 0.8 % 0-5 [facility] Glucose [Mass/Vol] 117 mg/dL 74-106 [facility] Comment on above: Fasting Glucose resu lt from 100 to 125 mg/dL suggests IMPAIRED HOMEOSTASIS per A.D.A. criteria. Hemoglobin (Bld) [Mass/Vol] 13.0 g/dL 12.0-15.0 [facility] Monocytes/100 WBC (Bld) 5.5 % 0-10 [facility] Neutrophils (Bld) [#/Vol] 6.3 10*3/uL 2.0-7.7 [facility] Neutrophils/100 WBC (Bld) 69.6 % 47-70 [facility] Potassium [Moles/Vol] 4.0 mmol/L 3.5-5.1 [facility] Comment on above: Slight Hemolysis, Re sult may be falsely increased. Sodium [Moles/Vol] 140 mmol/L 136-145 [facility] WBC (Bld) [#/Vol] 9.1 10*3/uL 4.4-11.0 [facility] Determination of erythrocyte mean corpuscular volume (MCV)Ordered By: Fredrick Recio on 06-29-2023 MCV (RBC) [Entitic vol] 90.1 fL 81-99 [facility] Erythrocyte distribution wid th ratioOrdered By: Fredrick Recio on 06-29-2023 Erythrocyte distribution width (RBC) [Ratio] 13.4 % 11.6-14.6 [facility] Erythrocyte distribution wid th standard deviationOrdered By: Fredrick Recio on 06-29-2023 Erythrocyte distribution width (RBC) [Entitic vol] 43.2 fL 35.1-43.9 [facility] Hematocrit Auto (Bld) [Volum e fraction]Ordered By: Fredrick Recio on 06-29-2023 Hematocrit (Bld) [Volume fraction] 36.6 % 37-47 [facility] Immature granulocytes/100 WB C Auto (Bld)Ordered By: Fredrick Recio on 06-29-2023 Immature granulocytes/100 WBC (Bld) 0.600 % 0.0-0.9 [facility] Comment on above: IG% - Immature Granu locytes (promyelocytes, myelocytes and metamyelocytes) > 1% indicates that a LEFT SHIFT is Present. Laboratory - Chemistry and C hemistry - challengeOrdered By: Fredrick Recio on 06-29-2023 CO2 [Moles/Vol] 26.0 mmol/L 21.0-32.0 [facility] Urea nitrogen/Creatinine [Mass ratio] 12.6 mg/mg 10-20 [facility] Laboratory - CoagulationOrde red By: Fredrick Recio on 06-29-2023 INR Coag (Bld) [Relative time] 1.0 {INR} [facility] PT Coag (PPP) [Time] 13.1 s 11.7-14.9 [facility] Laboratory - Hematology and Cell countsOrdered By: Fredrick Recio on 06-29-2023 MCH (RBC) [Entitic mass] 32.0 pg 27.0-32.0 [facility] MCHC (RBC) [Mass/Vol] 35.5 g/dL 32-36 [facility] Nucleated RBC/100 WBC (Bld) [Ratio] 0 % 0-5 [facility] Platelet mean volume (Bld) [Entitic vol] 8.9 fL 6.2-12.0 [facility] Platelets (Bld) [#/Vol] 385 10*3/uL 150-450 [facility] No Panel InformationOrdered By: Fredrick Recio on 06-29-2023 Estimated Creatinine Clearance Calc 50.73 ml/min [facility] Estimated GFR (MDRD) Amer 100 mL/min >60 [facility] Comment on above: GFR Calc Estimated GFR (MDRD) Non-Af Amer 83 mL/min >60 [facility] Comment on above: Non- GFR Calc Troponin I High Sensitivity 4 pg/mL 3.0-54.0 [facility] Comment on above: Please Note: New Malia t Units and Gender Specific Reference Ranges. For more information see Policy Stat Procedure Gaffney High Sensitivity Troponin (TNIH) and attachments. RBC Auto (Bld) [#/Vol]Ordere d By: Fredrick Recio on 06-29-2023 RBC (Bld) [#/Vol] 4.06 10*6/uL 4.2-5.4 [facility] Serum or plasma calcium rachel urement (mass/volume)Ordered By: Fredrick Recio on 06-29-2023 Calcium [Mass/Vol] 9.6 mg/dL 8.5-10.1 [facility] Serum or plasma creatinine m easurement (mass/volume)Ordered By: Fredrick Recio on 06-29-2023 Creatinine [Mass/Vol] 0.72 mg/dL 0.55-1.02 [facility] Comment on above: The validity of the calculated GFR & GFRAA in patients over 70 years has not been determined. Clinical correlation is essential. Serum or plasma urea nitroge n measurement (mass/volume)Ordered By: Fredrick Recio on 06-29-2023 Urea nitrogen [Mass/Vol] 9 mg/dL 7-18 [facility] Thin prep Papanicolaou smear with manual screeningOrdered By: Ferdrick Recio on 06-29-2023 Thin prep Papanicolaou smear with manual screening 6 5-15 [facility] Absolute lymphocyte countOrd ered By: Tao Orozco on 06-15-2023 Lymphocytes Auto (Unsp spec) [#/Vol] 1.77 10*3/uL 0.83-4.51 [facility] Automated lymphocyte count a s percentage of total leukocytesOrdered By: Tao Orozco on 06-15-2023 Lymphocytes/100 WBC Auto (Unsp spec) 15.0 % 19-41 [facility] Basophil percentageOrdered B y: Tao Orozco on 06-15-2023 Basophils/100 WBC (Bld) 0.7 % 0-1 [facility] Bilirubin [Mass/Vol] 0.20 mg/dL 0.20-1.00 [facility] Comment on above: For patients on eltr ombopag therapy, use of Dimension Gaffney TBIL is not recommended. Chloride [Moles/Vol] 109 mmol/L 98-107 [facility] Eosinophils/100 WBC (Bld) 0.4 % 0-5 [facility] Glucose [Mass/Vol] 143 mg/dL 74-106 [facility] Comment on above: Fasting Glucose resu lt greater than or equal to 126 mg/dL suggests DIABETES MELLITUS per A.D.A. criteria. Hemoglobin (Bld) [Mass/Vol] 14.3 g/dL 12.0-15.0 [facility] Monocytes/100 WBC (Bld) 6.5 % 0-10 [facility] Neutrophils (Bld) [#/Vol] 9.0 10*3/uL 2.0-7.7 [facility] Neutrophils/100 WBC (Bld) 76.6 % 47-70 [facility] Potassium [Moles/Vol] 4.0 mmol/L 3.5-5.1 [facility] Protein [Mass/Vol] 7.3 g/dL 6.4-8.2 [facility] Sodium [Moles/Vol] 138 mmol/L 136-145 [facility] WBC (Bld) [#/Vol] 11.8 10*3/uL 4.4-11.0 [facility] Determination of erythrocyte mean corpuscular volume (MCV)Ordered By: Tao Orozco on 06-15-2023 MCV (RBC) [Entitic vol] 86.3 fL 81-99 [facility] Erythrocyte distribution wid th ratioOrdered By: Tao Orozco on 06-15-2023 Erythrocyte distribution width (RBC) [Ratio] 13.1 % 11.6-14.6 [facility] Erythrocyte distribution wid th standard deviationOrdered By: Tao Orozco on 06-15-2023 Erythrocyte distribution width (RBC) [Entitic vol] 40.3 fL 35.1-43.9 [facility] Hematocrit Auto (Bld) [Volum e fraction]Ordered By: Tao Orozco on 06-15-2023 Hematocrit (Bld) [Volume fraction] 42.9 % 37-47 [facility] Immature granulocytes/100 WB C Auto (Bld)Ordered By: Tao Orozco on 06-15-2023 Immature granulocytes/100 WBC (Bld) 0.800 % 0.0-0.9 [facility] Comment on above: IG% - Immature Granu locytes (promyelocytes, myelocytes and metamyelocytes) > 1% indicates that a LEFT SHIFT is Present. Laboratory - Chemistry and C hemistry - challengeOrdered By: Tao Orozco on 06-15-2023 Albumin/Globulin [Mass ratio] 0.9 {ratio} 0.9-2.4 [facility] ALP [Catalytic activity/Vol] 80 U/L 45-117 [facility] ALT [Catalytic activity/Vol] 19 U/L 13-56 [facility] CO2 [Moles/Vol] 26.0 mmol/L 21.0-32.0 [facility] Globulin (S) [Mass/Vol] 3.9 g/dL 2.2-4.2 [facility] Lipase [Catalytic activity/Vol] 35 U/L 13-75 [facility] Comment on above: Please note:LIPASE r evised reference range effective 22. New Lipase methodology. Expected to produce lower values than the previous assay method. NEW Reference Range: 13 - 75 U/L Urea nitrogen/Creatinine [Mass ratio] 15.2 mg/mg 10-20 [facility] - Hematology and Cell countsOrdered By: Tao Orozco on 06-15-2023 MCH (RBC) [Entitic mass] 28.8 pg 27.0-32.0 [facility] MCHC (RBC) [Mass/Vol] 33.3 g/dL 32-36 [facility] Nucleated RBC/100 WBC (Bld) [Ratio] 0 % 0-5 [facility] Platelets (Bld) [#/Vol] 390 10*3/uL 150-450 [facility] No Panel InformationOrdered By: Tao Orozco on 06-15-2023 D-Dimer Quantitative (PE/DVT) < 0.27 FEU/ug/m 0.27-0.49 [facility] Comment on above: NORMAL D-Dimer level (<0.50) indicates no DVT or PE. Estimated Creatinine Clearance Calc 50.67 ml/min [facility] Estimated GFR (MDRD) Amer 90 mL/min >60 [facility] Comment on above: GFR Calc Estimated GFR (MDRD) Non-Af Amer 74 mL/min >60 [facility] Comment on above: Non- GFR Calc Troponin I High Sensitivity 4 pg/mL 3.0-54.0 [facility] Comment on above: Please Note: New Malia t Units and Gender Specific Reference Ranges. For more information see Policy Stat Procedure Gaffney High Sensitivity Troponin (TNIH) and attachments. Platelet mean volume Flex-Ec ker (Bld) [Entitic vol]Ordered By: Tao Orozco on 06-15-2023 Platelet mean volume (Bld) [Entitic vol] 8.6 fL 6.2-12.0 [facility] RBC Auto (Bld) [#/Vol]Ordere d By: Tao Orozco on 06-15-2023 RBC (Bld) [#/Vol] 4.97 10*6/uL 4.2-5.4 [facility] Serum or plasma calcium rachel urement (mass/volume)Ordered By: Tao Orozco on 06-15-2023 Calcium [Mass/Vol] 9.2 mg/dL 8.5-10.1 [facility] Serum or plasma creatinine m easurement (mass/volume)Ordered By: Tao Orozco on 06-15-2023 Creatinine [Mass/Vol] 0.79 mg/dL 0.55-1.02 [facility] Comment on above: The validity of the calculated GFR & GFRAA in patients over 70 years has not been determined. Clinical correlation is essential. Serum or plasma urea nitroge n measurement (mass/volume)Ordered By: Tao Orozco on 06-15-2023 Urea nitrogen [Mass/Vol] 12 mg/dL 7-18 [facility] Thin prep Papanicolaou smear with manual screeningOrdered By: Tao Orozco on 06-15-2023 Thin prep Papanicolaou smear with manual screening 3.4 g/dL 3.2-5.0 [facility] Thin prep Papanicolaou smear with manual screening 13 U/L 15-37 [facility] Thin prep Papanicolaou smear with manual screening 3 5-15 [facility] 3D MAMM BILAT SCREENon 07-16 3D MAMM BILAT SCREEN [place] [address] Patient: JAQUI CHIRINOS Phone#: : [phone] Age: 80 Gender: F Pt. Type: Out Account: [id number] Location: [facility] Ordering: ELEANOR CROWLEY Exam Date: 07/16/202115:04 Family Phys: Charge Code: [id number] Physician: [place] Order #: [id number] DLP Dose#: PROCEDURE: BILATERAL SCREENING BREAST TOMOSYNTHESIS MAMMOGRAM WITH CAD COMPARISON: [facility], BILAT SCREENING, 03/12/2019, 15:50. [facility], BILAT SCREENING, 03/27/2020, 15:45. INDICATIONS: Screening. BREAST COMPOSITION: Heterogeneously dense,which could obscure small masses(51-75% glandular). FINDINGS: DIAGNOSTIC CATEGORY 1--NEGATIVE NO CHANGE FROM COMPARISON ASSESSMENT. RIGHT BREAST: No significant suspicious finding. No significant change has occurred. LEFT BREAST: No significant suspicious finding. No significant change has occurred. RECOMMENDATIONS: ROUTINE MAMMOGRAM AND CLINICAL EVALUATION IN 12 MONTHS. PLEASE NOTE: A NORMAL MAMMOGRAM DOES NOT EXCLUDE THE POSSIBILITY OF BREAST CANCER. A CLINICALLY SUSPICIOUS PALPABLE LUMP SHOULD BE BIOPSIED. THIS FACILITY UTILIZES A REMINDER SYSTEM TO ENSURE THAT ALL PATIENTS RECEIVE REMINDER LETTERS FOR APPOINTMENTS. THIS INCLUDES REMINDERS FOR ROUTINE MAMMOGRAMS, DIAGNOSITC MAMMOGRAMS, OR OTHER BREAST IMAGING INTERVENTIONS WHEN APPROPRIATE. THIS PATIENT WILL BE PLACED IN THE APPROPRIATE REMINDER SYSTEM. Dictated by: Adalgisa De Anda MD on 07/16/2021 at 16:35 Approved by: Adalgisa De Anda MD on 07/16/2021 at 16:36 [facility] Vital Signs Date Time Vital Sign Value Performing Clinician Martha celeste 08-27-2024 12:44-0400 Body height 157.[address] Eleanor Crowley MD Work Phone: 9(551)[phone] [place] [address] 08-27-2024 12:44-0400 Body mass index (BMI) [Ratio] 27.8 kg/m2 Dr. Eleanor Crowley MD Work Phone: 9(378)[phone] [place] [address] 08-27-2024 12:44-0400 Body temperature 98.4 [degF] Dr. Eleanor Crowley MD Work Phone: 7(233)681-764961 [place] [address] 08-27-2024 12:44-0400 Body weight 68.[address] Eleanor Crowley MD Work Phone: 0(237)[phone] [place] [address] 08-27-2024 12:44-0400 Diastolic blood pressure 66 mm[Hg] Dr. Eleanor Crowley MD Work Phone: 6(806)597-212961 [place] [address] 08-27-2024 12:44-0400 Heart rate 61 /min Dr. Eleanor Crowley MD Work Phone: 6(796)[phone] [place] [address] 08-27-2024 12:44-0400 Respiratory rate 16 /min Dr. Eleanor Crowley MD Work Phone: 8(585)[phone] [place] [address] 08-27-2024 12:44-0400 SaO2% (BldA) [Mass fraction] 97 % Dr. Eleanor Crowley MD Work Phone: 4(737)[phone] [place] [address] 08-27-2024 12:44-0400 Systolic blood pressure 130 mm[Hg] Dr. Eleanor Crowley MD Work Phone: 4(045)[phone] [address] 07-02-2024 08:25-0500 Body mass index (BMI) [Ratio] 27.4 kg/m2 Dr. Eleanor Crowley MD Work Phone: [facility] 07-02-2024 08:25-0500 Body temperature 98.6 [degF] Dr. Eleanor Crowley MD Work Phone: [facility] 07-02-2024 08:25-0500 Body weight 68.[address] Eleanor Crowley MD Work Phone: [facility] 07-02-2024 08:25-0500 Diastolic blood pressure 68 mm[Hg] Dr. Eleanor Crowley MD Work Phone: [facility] 07-02-2024 08:25-0500 Heart rate 105 /min Dr. Eleanor Crowley MD Work Phone: [facility] 07-02-2024 08:25-0500 Respiratory rate 16 /min Dr. Eleanor Crowley MD Work Phone: [facility] 07-02-2024 08:25-0500 SaO2% (BldA) [Mass fraction] 99 % Dr. Eleanor Crowley MD Work Phone: [facility] 07-02-2024 08:25-0500 Systolic blood pressure 114 mm[Hg] Dr. Eleanor Crowley MD Work Phone: [facility] 06-29-2023 15:08-0500 Body temperature 95.9 [degF] [facility] 06-29-2023 15:08-0500 Diastolic blood pressure 87 mm[Hg] [facility] 06-29-2023 15:08-0500 Heart rate 91 /min [facility] 06-29-2023 15:08-0500 Respiratory rate 16 /min [facility] 06-29-2023 15:08-0500 SaO2% (BldA) [Mass fraction] 97 % [facility] 06-29-2023 15:08-0500 Systolic blood pressure 148 mm[Hg] [facility] 06-29-2023 12:00-0500 Body height 157.48 cm [facility] 06-29-2023 12:00-0500 Body mass index (BMI) [Ratio] 29.4 kg/m2 [facility] 06-29-2023 12:00-0500 Body weight 73.02 kg [facility] 06-15-2023 19:41-0500 Diastolic blood pressure 69 mm[Hg] [facility] 06-15-2023 19:41-0500 Heart rate 72 /min [facility] 06-15-2023 19:41-0500 Respiratory rate 15 /min [facility] 06-15-2023 19:41-0500 SaO2% (BldA) [Mass fraction] 98 % [facility] 06-15-2023 19:41-0500 Systolic blood pressure 124 mm[Hg] [facility] 06-15-2023 17:49-0500 Body height 157.48 cm [facility] 06-15-2023 17:49-0500 Body mass index (BMI) [Ratio] 29.3 kg/m2 [facility] 06-15-2023 17:49-0500 Body temperature 97.4 [degF] [facility] 06-15-2023 17:49-0500 Body weight 72.84 kg [facility] Encounters Encounter Date Encounter Type Care Provider Facility Start: 10-02-2024 ambulatory Eleanor Crowley Facility: [facility] Start: 10-02-2024 Non-patient / Non-visit Dr. Susy montes MD -[facility] Start: 10-02-2024 End: 10-02-[address] Elaenor Crowley MD Work Phone: [facility] Work Phone: Start: 10-02-2024 End: 10-02-[address] Ace Singleton MD -Pulmonary Services/Neurology Work Phone: Start: 10-02-2024 End: 10-02-2024 ambulatory Eleanor Crowley Facility:[facility] Start: 08-27-2024 End: 08-27-[address] Ace Singleton MD -[facility] Work Phone: Start: 08-27-2024 End: 08-27-2024 ambulatory Ace Singleton Facility:[facility] Start: 07-02-2024 End: 07-02-[address] Ace Singleton MD -[facility] Work Phone: Start: 07-02-2024 End: 07-02-2024 ambulatory Ace Singleton Facility[facility] Start: 07-02-2024 End: 07-02-2024 ambulatory Ace Singleton Facility:[facility] Start: 05-17-2024 End: 05-17-2024 Emergency department patient visit Joseph Carrero Facility:[facility] Start: 03-15-2024 End: 03-15-2024 ambulatory Karthik Zachariah FRANKY Facility:[facility] Start: 11-24-2023 End: 11-24-2023 ambulatory Eleanor Crowley Facility:[facility] Start: 07-07-2023 End: 07-07-2023 ambulatory [facility] Work Phone: Start: 07-07-2023 End: 07-07-2023 Patient encounter procedure [facility] Start: 06-29-2023 End: 06-29-2023 Emergency department patient visit [facility] Work Phone: Start: 06-15-2023 End: 06-15-2023 Emergency department patient visit [facility] Work Phone: Start: 12-15-2021 End: 12-15-2021 Patient encounter procedure [facility] Start: 07-16-2021 End: 07-16-2021 ambulatory ELEANOR CROWLEY [facility] Procedures Date Procedure Procedure Detail Performing Clinician Start: 07-02-2024 Albumin/Globulin ratio Dr. Eleanor Crowley MD Work Phone: Start: 07-02-[address] Eleanor Crowley MD Work Phone: Start: 07-02-2024 Antibody to centrome re measurement Dr. Eleanor Crowley MD Work Phone: Comment on above: Previous reported re sult: TNP AIEdited by: GONSALO on 07/03/24:1408 AMENDED REPORT 07/03/24 1408 ANTI-CENT B previously reported as: Test not performed Start: 07-02-2024 Antibody to extracta ble nuclear antigen measurement Dr. Eleanor Crowley MD Work Phone: Comment on above: Previous reported re sult: TNP AIEdited by: INFCE on 07/03/24:1408 AMENDED REPORT 07/03/24 1408 HAMPTON Ab previously reported as: Test not performed Start: 07-02-2024 Antibody to GLADIS-[address] Eleanor Crowley MD Work Phone: Comment on above: Previous reported re sult: TNP AIEdited by: INFCE on 07/03/24:1408 AMENDED REPORT 07/03/24 1408 ANTI-GLADIS previously reported as: Test not performed Start: 07-02-2024 Antibody to lupus La protein measurement Dr. Eleanor Crowley MD Work Phone: Comment on above: Previous reported re sult: TNP AIEdited by: INFCE on 07/03/24:1408 AMENDED REPORT 07/03/24 1408 Anti-SS-B previously reported as: Test not performed Start: 07-02-2024 Antibody to SS-A measurement Dr. Eleanor Crowley MD Work Phone: Comment on above: Previous reported re sult: TNP AIEdited by: INFCE on 07/03/24:1408 AMENDED REPORT 07/03/24 1408 Anti-SS-A previously reported as: Test not performed Start: 07-02-[address] Eleanor Crowley MD Work Phone: Comment on above: Previous reported re sult: TNP AIEdited by: INFCE on 07/03/24:1408 AMENDED REPORT 07/03/24 1408 ANTICHROMATIN previously reported as: Test not performed Start: 07-02-[address] Eleanor Crowley MD Work Phone: Start: 07-02-[address] Eleanor Crowley MD Work Phone: Start: 07-02-2024 REGULATORY ASSOCIATE antibody measurement Dr. Eleanor Crowley MD Work Phone: Comment on above: Previous reported re sult: TNP AIEdited by: GONSALO on 07/03/24:1408 AMENDED REPORT 07/03/24 1408 REGULATORY ASSOCIATE Ab previously reported as: Test not performed Start: 06-29-2023 Plain chest X-ray Start: 06-29-2023 CT angiography of he ad and neck Start: 06-15-2023 Plain chest X-ray Start: 12-15-2021 Plain chest X-ray Plan of Treatment Date Care Activity Detail Author Start: 08-27-2024 Patient referral [facility] Work Phone: Start: 06-29-2023 End: 06-29-2023 [facility] spital Start: 06-29-2023 Oxygen therapy [facility] Start: 06-29-2023 [facility] Start: 06-15-2023 [facility] Patient Education [facility] Work Phone: Patient referral [facility] Work Phone: Payers Date Payer Category Payer Self-pay [id number] 2020 Unknown [id number] 2005 Medicare [id number] 1940 Unknown [id number] 2.16.84 [id number] Unknown [id number] 2.16.8 [id number] Unknown [id number] 2.16.8 [id number] Unknown [id number] 2.16.8 [id number] Unknown [id number] 2.16.8 [id number] Unknown [id number] 2.16.8 [id number] Unknown [id number] 2.16.8 [id number] Unknown [id number] 2.16.8 [id number] Unknown [id number] 2.16.8 [id number] Social History Date Type Detail Facility Start: 01-19-2021 End: 06-29-2023 Tobacco smoking status NHIS Unknown if ever smoked [facility] Start: 1940 Sex Assigned At Female [facility] Start: 07-02-2024 Tobacco smoking stat us NYIS Never smoked tobacco (finding) [facility] Mental Status Date Assessment Result Facility 06-29-2023 Cognitive function Appropriate;Janae hummel [facility] Work Phone: 06-15-2023 Cognitive function Voice/Name [facility] Work Phone: Procedure note 10-02-2024 Note Date & Type Note Facility 10-02-2024 Procedure note [facility] Evaluation note 07-02-2024 Note Date & Type Note Facility 07-02-2024 Evaluation note Diagnosis Onset Date Resolution Paresthesia acute June 8:23am Tremor chronic July 02, 2024 8:23am Paresthesia acute August 27, 025 12:44pm Positive REESE (antinuclear antibody) acute August 12:44pm Raynaud's phenomenon (by history or observed) acute August 27, 2024 12:44pm SS-B antibody positive acute Ap 2024 12:44pm Tremor chronic August 27 12:44pm [facility] Work Phone: Evaluation note Note Date & Type Note Facility Evaluation note No assessment information availa ble [facility] Work Phone: Hospital Discharge instructions Note Date & Type Note Facility Hospital Discharge instructions Additional Instructions Follow-up with Dr. Crowley in 1 week. Return to ER immediately for symptoms of stroke including facial droop, one-sided weakness, difficulty speaking or swallowing. [facility] Work Phone: Summary Purpose Family History No Family History Records Found Relationship Condition Age at Onset Recorded Date/T kay father Malignant neoplasm of colon Unknown mother Malignant neoplasm of breast Unknown Advance Directives No Advanced Directives Records Found Advance Directive Response Recorded Date/ Time Living Will No January 13 020 7:32pm Power of Spectacle Truer No January 14, 2020 7:32pm Advance Directive Response Recorded Date/ Time Living Will No June 15 6:16pm Power of Spectacle Truer No June 15, 2023 6:16pm Advance Directive Response Recorded Date/ Time Name of Medical Power of Spectacle Truer daughter June 29, 2023 12:09pm Living Will Yes June 29 024 12:09pm Power of Spectacle Truer Yes June 29, 2023 12:09pm Chief Complaint and Reason for Visit Chief Complaint chest pain Chief Complaint chest pain NUMBNESS/TINGLING Chief Complaint Admit Date NUMBNESS AND TINGLING July 02 8:23am EORDERS July 02, 2024 9:14am 2 M FU August 27, 2024 12: 44pm RUE/RLE; N/T IN FINGERS & TOES October 02, 2024 12:07pm RUE/RLE; N/T IN FINGERS & TOES October 02, 2024 2:23pm Reason for Visit Admit Date Paresthesia July 02, 2024 8:23am Tremor July 02, 2024 8:23am Paresthesia August 27, 2024 12: 44pm Positive REESE (antinuclear antibody) Apri l 2024 12:44pm Raynaud's phenomenon (by history or obse rved) August 27, 2024 12:44pm SS-B antibody positive August 27, 2024 12:44pm Tremor August 27, 2024 12: 44pm Additional Source Comments INFORMATION SOURCE (unrecogn ized section and content) DATE CREATED AUTHOR 07/17/2021 Jeevan Knight [facility] DATE CREATED AUTHOR AUTHOR'S ORGANIZ ATASHLEY [facility] Goals (unrecognized section and content) Goals may be documented in a n alternate sectionGoals may be documented in an alternate sectionGoals may be documented in an alternate sectionGoals may be documented in an alternate sectionGoals may be documented in an alternate section Care Teams (unrecognized sec tion and content) Team Status: Active Member Role Status Dates Dr. Eleanor Crowley MD Family Provider Active Dr. Eleanor Crowley MD Primary Care Provider Active Team Status: Inactive Member Role Status Dates Dr. Eleanor Crowley MD Primary Care Provider Active Dr. Lloyd Herrera MD Emergency Provider Active Team Status: Inactive Member Role Status Dates Dr. Eleanor Crowley MD Primary Care Provider Active Dr. Lloyd Herrera MD Attending Provider, Emergency Provider Active Team Status: Inactive Member Role Status Dates Dr. Eleanor Crowley MD Primary Care Provider Active Dr. Fredrick Recio MD Emergency Provider Active Team Status: Inactive Member Role Status Dates Dr. Eleanor Crowley MD Primary Care Provider Active Dr. Fredrick Recio MD Attending Provider, Emergency Pro vider Active Team Status: Inactive Member Role Status Dates Dr. Eleanor Crowley MD Primary Care Provider, Attendin g Provider Active Team Status: Active Member Role Status Dates Dr. Eleanor Crowley MD Primary Care Provider Active Team Status: Inactive Member Role Status Dates Dr. Eleanor Crowley MD Primary Care Provider Active Start: July 02, 2024 End: July 02, 2024 Dr. Eleanor Crowley MD Referring Provider Active Start: July 02, 2024 End: July 02, 2024 Dr. Ace Singleton MD Attending Provider Active Start: July 02, 2024 End: July 02, 2024 Team Status: Inactive Member Role Status Dates Dr. Eleanor Crowley MD Primary Care Provider Active Start: July 02, 2024 End: July 02, 2024 Dr. Ace Singleton MD Attending Provider Active Start: July 02, 2024 End: July 02, 2024 Dr. Ace Singleton MD Referring Provider Active Start: July 02, 2024 End: July 02, 2024 Team Status: Inactive Member Role Status Dates Dr. Eleanor Crowley MD Primary Care Provider Active Start: August 27, 2024 End: August 27, 2024 Dr. Eleanor Crowley MD Referring Provider Active Start: August 27, 2024 End: August 27, 2024 Dr. Ace Singleton MD Attending Provider Active Start: August 27, 2024 End: August 27, 2024 Team Status: Inactive Member Role Status Dates Dr. Eleanor Crowley MD Primary Care Provider Active Start: October 02, 2024 End: October 02, 2024 Dr. Ace Singleton MD Attending Provider Active Start: October 02, 2024 End: October 02, 2024 Dr. Ace Singleton MD Referring Provider Active Start: October 02, 2024 End: October 02, 2024 Team Status: Active Member Role Status Dates Dr. Eleanor Crowley MD Primary Care Provider Active Start: October 02, 2024 Dr. Ace Singleton MD Referring Provider Active Start: October 02, 2024 Dr. Ace Singleton MD Other Provider Active S tart: October 02, 2024 Dr. Susy Petty MD Attending Provider Active S tart: October 02, 2024 FOR RECORDS PERTAINING TO PATIENTS WHO ARE [...] BE BASED ON THE PRIMARY CLINICAL RECORDS. [employer] provides no warranty or guarantee of the accuracy or completeness of information in this document.
[2025-05-06] MEDS: 0.9% Normal Saline (1000mL) 1,000 ML 999 ML IV (18:13)
[2025-05-06 18:54] LABS: Hematocrit 39.5 % (37-47); Hemoglobin 12.8 g/dL (12.0-15.0); Immature Granulocytes Count 0.080 X10^3/uL (0.0-0.0); Mean Corp Hgb Conc 32.4 g/dL (32-36); Mean Corpuscular Volume 87.6 fL (81-99); Mean Platelet Vol. 9.3 fl (6.2-12.0); NRBC Flagged by Analyzer 0 % (0-5); Platelet Count 392 K/mm3 (150-450); RBC Distribution Width CV 13.9 % (11.6-14.6); RBC Distribution Width SD 44.4 fl (35.1-43.9); Red Blood Count 4.51 M/mm3 (4.2-5.4); White Blood Count 14.0 K/mm3 (4.4-11.0)
[2025-05-06 18:59] LABS: Free T3 2.6 pg/mL (2.18-3.98)
[2025-05-06 19:01] LABS: Anion Gap 11 (7-18); BUN 12 mg/dL (4-19); BUN/Creat Ratio 16.8 RATIO (10-20); Calcium,Total 9.2 mg/dL (7.6-11.0); Carbon Dioxide 25.2 mmol/L (20.0-29.0); Chloride 104 mmol/L (96-106); Estimated Creatinine Clearance 47.11 ml/min (50-250); Glucose 123 mg/dL (70-99); Potassium 3.6 mmol/L (3.5-5.1)
[2025-05-06 19:16] LABS: Prothrombin Time (Protime)PT. 13.9 SECONDS (11.7-14.9)
[2025-05-06 19:17] LABS: Partial Thromboplast Time 27.9 Seconds (24.1-36.2)
[2025-05-06 19:26] LABS: Magnesium 1.9 mg/dL (1.5-2.2); Pro- Brain NATRIURETIC PEPTIDE 86 pg/mL (<=1800); Troponin T High Sensitivity < 6 ng/L (<=14)
[2025-05-06 19:39] LABS: Troponin T High Sens 2 HR 10 ng/L (<=14)
--- NOTE | 2025-05-06 21:40 | ED.RN ---
Pt recieved narcotics and cannot drive until 2219, pt informed that she would need a ride, stated her ride would take an hour to arrive and would like to wait to drive herself home.
== END 2025-05-06 22:29 | disposition home or self-care (01) ==
PROVIDERS: Emergency Provider Emergency Medicine; PCP Family Medicine; Visit Provider Emergency Medicine
DX: R07.9 Chest pain, unspecified (principal); R06.02 Shortness of breath; K21.9 Gastro-esophageal reflux disease without esophagitis; Z79.899 Other long term (current) drug therapy
CPT/HCPCS: 71275; 80048; 83735; 83880; 84439; 84443; 84481; 84484; 85025; 85610; 85730; 93005; 96361; 96374; 96375; 99284; Q9967; A4216; J2405